=== PATIENT | female | born 1950 | race Caucasian/White ===

== ENCOUNTER 2019-01-21 19:43 | Emergency (ER) | payer OTHER ==
[~2019-01-21] VITALS: Ht 160 cm; Wt 73.9 kg
[~2019-01-21 19:43] MED LIST: BYSTOLIC PO; CYMBALTA PO; LISINOPRIL PO; PANTOPRAZOLE PO; ZETIA PO
--- OUTSIDE RECORDS SUMMARY | 2019-01-21 19:48 | XMS REPORT | Continuity of Care Document ---
Author Author [facility] Interface Address Unknown Phone Unavailable Problems Problem Status Onset Date Classification Date Reported Comments Source BREAST MASS Active 08/21/2014 [facility] SCREENING Active 07/30/2014 [facility] Elevated uric acid in blood Active Problem 12/19/2018 [facility] Elevated liver enzymes Active Problem 12/19/2018 [facility] Vitamin D deficiency Active Problem 12/19/2018 [facility] Insomnia, unspecified type Active Problem 12/19/2018 [facility] History of anemia Active Problem 10/24/2018 [facility] Osteopenia, unspecified location Active Problem 12/19/2018 [facility] Environmental allergies Active Problem 12/19/2018 [facility] HTN Active Problem 10/24/2018 [facility] Fatty liver Active Problem 12/19/2018 [facility] Renal cyst, right Active Problem 12/19/2018 [facility] Depressed Active Problem 12/19/2018 [facility] Prediabetes Active Problem 12/19/2018 [facility] Hypercholesteremia Active Problem 12/19/2018 [facility] Heartburn Active Problem 12/19/2018 [facility] Pain in right leg Active Diagnosis 08/16/2017 [facility] Pain of left leg Active Diagnosis 08/16/2017 [facility] Sciatica, left side Active Problem 12/19/2018 [facility] Hypertension Active Problem 12/19/2018 [facility] Screening for breast cancer Active Diagnosis 08/16/2017 [facility] Encntr for general adult medical exam w/o abnormal findings Active Diagnosis 08/16/2017 [facility] Screening for HIV Active Diagnosis 08/16/2017 [facility] Screening for osteoporosis Active Diagnosis 08/16/2017 [facility] Left leg pain Active Diagnosis 05/04/2017 [facility] Breast cancer screening Active Diagnosis 05/04/2017 [facility] Elevated serum creatinine Active Diagnosis 05/04/2017 [facility] Osteopenia Active Problem 02/24/2017 [facility] Stage 3 chronic kidney disease Active Problem 12/19/2018 [facility] Abnormal laboratory test result Active Problem 10/24/2018 [facility] Essential hypertension Active Problem 10/24/2018 [facility] Hematuria, unspecified type Active Diagnosis 09/13/2017 [facility] Type 2 diabetes mellitus without complication, without long-term current use of insulin Active Problem 12/19/2018 [facility] 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 Active Problem 12/19/2018 [facility] Abnormal gamma globulin level Active Diagnosis 10/07/2018 [facility] Routine general medical examination at a health care facility Active Diagnosis 10/07/2018 [facility] Encounter for screening mammogram for breast cancer Active Diagnosis 10/07/2018 [facility] Encounter for screening colonoscopy Active Diagnosis 10/07/2018 [facility] Elevated alkaline phosphatase level Active Diagnosis 01/19/2015 [facility] Overweight Active Problem 08/31/2015 [facility] Body Mass Index 27.0-27.9, adult Active Problem 08/31/2015 [facility] Hyperlipidemia Active Problem 08/31/2015 [facility] Vitamin d deficiency Active Problem 08/31/2015 [facility] Depression Active Problem 08/25/2016 [facility] Prediabetes Active Problem 08/31/2015 [facility] Essential hypertension Active Problem 08/31/2015 [facility] Flu vaccine need Active Diagnosis 07/22/2014 [facility] Constipation Active Diagnosis 07/22/2014 [facility] Acute left ankle pain Active Diagnosis 11/23/2018 [facility] Sleep disturbance Active Diagnosis 04/02/2014 [facility] Acute dermatitis Active Diagnosis 04/02/2014 [facility] Pre-op exam Active Diagnosis 09/21/2015 [facility] Hallux valgus of right foot Active Diagnosis 09/21/2015 [facility] Right ankle instability Active Diagnosis 09/21/2015 [facility] Capsulitis of ankle, right Active Diagnosis 09/21/2015 [facility] Needs flu shot Active Diagnosis 08/18/2016 [facility] Pre-operative clearance Active Diagnosis 08/18/2016 [facility] Right foot pain Active Diagnosis 08/18/2016 [facility] History of bunionectomy of right great toe Active Diagnosis 08/18/2016 [facility] Shingles Active Diagnosis 03/25/2016 [facility] Low back pain Active Diagnosis 03/25/2016 [facility] Sciatica Active Diagnosis 03/09/2016 [facility] Need for hepatitis C screening test Active Diagnosis 11/23/2016 [facility] Medications Medication Details Route Status Patient Instructions Ordering Provider Order Date Source MetFORMIN HCl ER 1 tablet with evening meal Orally Active 500 mg Orally Once a day Dennard 11/19/2018 [facility] Zetia 1 tablet Orally Active 10 mg Orally Once a day Dennard 11/19/2018 [facility] Zpfbknckhr-Jwdrfqbwy-CUNN 1 tablet Orally Active 5-160-12.5 MG Orally Once a day Dennard 10/03/2018 [facility] Cymbalta 1 capsule Orally Active 60 MG Orally daily [place]enn[place] 07/23/2018 [facility] Amlodipine Besylate 1 tablet Orally Active 5 MG Orally daily [place] 07/21/2018 [facility] Bystolic 1 tablet Orally Active 20 mg Orally daily D[place] 07/21/2018 [facility] Trazodone HCl 1-2 tablet Orally Active 50 mg Orally qhs PRN Dennard 07/21/2018 [facility] Latisse 1 drop each eye Externally Active 0.03 % Externally Once a day [place] 05/02/2017 [facility] Latisse 1 drop each eye Externally Active 0.03 % Externally Once a day [place] 05/02/2017 [facility] Valsartan-Hydrochlorothiazide 1/2-1 tablet Orally Active 320- 25 MG Orally Once a day [place] 04/02/2017 [facility] Amlodipine Besylate 1 tablet Orally Active 5 MG Orally Once a day [place] 04/02/2017 [facility] Amlodipine Besylate 1 tablet Orally Active 5 MG Orally Once a day [place] 04/02/2017 [facility] Valsartan-Hydrochlorothiazide 1 tablet Orally Active 320-25 MG Orally Once a day [place]enn[place] 04/02/2017 [facility] Ergocalciferol 1 capsule Orally Active 56813 UNIT Orally once per week Dennard 03/09/2017 [facility] Ergocalciferol 1 capsule Orally Active 26231 UNIT Orally once per week [place]enn[place] 03/09/2017 [facility] Trazodone HCl 1-2 tablet Orally Active 50 mg Orally q hs PRN Dennard 02/28/2017 [facility] Trazodone HCl 1 tablet at bedtime as needed Orally Active 50 MG Orally Once a day [place] 02/28/2017 [facility] Singulair 1 tablet Orally Active 10 MG Orally Once a day [place] 11/21/2016 [facility] Cyclobenzaprine HCl 1 tablet Orally Active 10 mg Orally one at hour of sleep daily [place] 04/13/2016 [facility] Naproxen 1 tablet Orally Active 375 MG Orally Twice a day [place] 04/13/2016 [facility] Pantoprazole Sodium 1 tablet Orally Active 20 mg Orally Once a day [place] 04/03/2016 [facility] Pantoprazole Sodium 1 tablet Orally Active 20 MG Orally Once a day [place] 04/03/2016 [facility] Bystolic 1 tablet Orally Active 20 mg Orally Once a day [place] 03/23/2016 [facility] Bystolic 1 tablet Orally Active 20 mg Orally Once a day [place]di[place] 03/23/2016 [facility] Medrol (Rishabh) as directed Orally Active 4 mg Orally daily [place] 03/21/2016 [facility] Bystolic 1 tablet Orally No Longer Active 10 MG Orally Once a day [place] 03/07/2016 [facility] Valtrex 1 tablet Orally Active 1 GM Orally every 8 hours [place] 03/07/2016 [facility] Lisinopril 1 tablet Orally Active 10 mg Orally Once a day (MUST SEE DOCTOR BEFORE NEXT REFILL) [place] 07/23/2015 [facility] Zetia 1 tablet Orally Active 10 mg Orally Once a day [place] 07/23/2015 [facility] Pantoprazole Sodium 1 tablet Orally Active 40 mg Orally Once a day [place] 07/20/2015 [facility] Bystolic 1 tablet Orally Active 5 MG Orally Once a day (MUST SEE DOCTOR BEFORE NEXT REFILL) [place] 07/20/2015 [facility] Latisse 1 drop to upper eyelid margin (do not apply to lower lid) Externally Active 0.03 % Externally every night [place] 03/30/2014 [facility] Cymbalta 1 capsule Orally Active 60 MG Orally Once a day [place] 01/29/2014 [facility] Tessalon Perles 1 capsule as needed Orally No Longer Active 100 mg Orally Three times a day [place] 01/16/2013 [facility] Montelukast Sodium 1 TABLET DAILY ORAL 30 DAYS NA Active 10 mg [place] [facility] Cymbalta 1 capsule Orally Active 60 MG Orally Once a day [place] [facility] Bystolic 1 tablet Orally Active 20 MG Orally Once a day [place] [facility] Zetia 1 tablet Orally Active 10 Orally Once a day [place] [facility] Bystolic 1 tablet Orally Active 20 MG Orally Once a day [place] [facility] Montelukast Sodium TK 1 T PO ONCE QD Oral Active 10 MG Oral [place] [facility] Pantoprazole Sodium 1 tablet Orally Active 20 mg Orally once a day [place] [facility] Zetia 1 tablet Orally Active 10 mg Orally Once a day [place] [facility] Pantoprazole Sodium TAKE 1 TABLET BY MOUTH ONCE A DAY Orally Active 20 MG Orally daily [place] [facility] Amlodipine Besylate 1 tablet Orally Active 5 Orally qd LAST REFILL, NEEDS TO BE SEEN [place] [facility] Pantoprazole Sodium 1 tablet Orally Active 20 mg Orally Once a day [place] [facility] Ergocalciferol 1 capsule Orally Active 04660 UNIT Orally once per week [place] [facility] Bystolic 1 tablet Orally Active 20 Orally qd LAST REFILL, NEEDS TO BE SEEN [place] [facility] Tizanidine HCl TK 1 T PO TID Oral Active 2 MG Oral [place] [facility] Multi For Her 50+ Unknown Orally No Longer Active Orally [place] [facility] Biotin 1 tablet Orally Active 300 MCG Orally Once a day [place] [facility] Hydrochlorothiazide 1 tablet by mouth Active 12.5 MG by mouth daily [place] [facility] Cymbalta take one capsule by mouth every day NA Active 60 MG [place] [facility] Pantoprazole Sodium 1 tablet Orally Active 40 Orally Once a day [place] [facility] Bystolic 1 tablet Orally Active 10 MG Orally Once a day [place] [facility] Lisinopril 1 tablet Orally Active 10 mg Orally Once a day [place] [facility] Bystolic 1 tablet Orally No Longer Active 5 MG Orally Once a day (MUST SEE DOCTOR BEFORE NEXT REFILL) Tirso [place] [facility] Lisinopril 1 tablet Orally Active 10 mg Orally Once a day (MUST SEE DOCTOR BEFORE NEXT REFILL) [place] [facility] Lisinopril 1 tablet Orally Active 10 mg Orally Once a day [place] [facility] Allergies, Adverse Reactions, Alerts Substance Category Reaction Severity Reaction type Status Date Reported Comments Source N.K.D.A. Adverse Reaction Info Not Available Adverse Reaction Active 11/19/2018 [facility] Immunizations Immunization Date Given Site Status Last Updated Comments Source FLUZONE HD 65 [place] [id number] 08/15/2016 completed [facility] FLU 3YRS & [place] [address] 07/21/2014 completed [facility] Results Order Name Results Value Reference Range Date Interpretation Comments Source Breast US Breast US - BREAST US ULTRASOUND OF BOTH BREASTS AND BOTH AXILLA: 09/14/2014 CLINICAL: Densities. Comparison is made to exam dated: 08/04/2014 mammogram - [facility]. Color flow and real-time ultrasound of both breasts and both axilla were performed. Velazco scale images of the real-time examination were reviewed. There is a benign 5 mm simple cyst in the right breast at 1 o'clock middle depth 1 cm from the nipple. This correlates with mammography findings. There is a benign 0.4 cm simple cyst in the left breast at 11 o'clock middle depth 2 cm from the nipple. This correlates with mammography findings. No abnormalities were seen sonographically in either breast or either axilla. IMPRESSION: BENIGN There is no sonographic evidence of malignancy. The 5 mm simple cyst in the right breast at 1 o'clock middle depth is benign. The 0.4 cm simple cyst in the left breast at 11 o'clock middle depth is benign. A screening mammogram in one year is recommended. Rona Jacob M.D. ap/penrad:09/14/2014 10:20:28 Cardiology Teacher: Roderick Mckenna, [facility] This exam was dictated and interpreted by [id number] for [facility]. letter sent: Normal exam Ultrasound BI-RADS: 2 Benign 09/14/2014 - - Read by: Rona Jacob MD Dictated Date/time: 09/14/14 10:20 Electronically Signed by: Rona Jacob MD 09/14/14 10:20 FINAL REPORT [facility] Digital Mammo Screening Mele[facility] MA Digital Mammo Screening [facility]le[facility]io MA - DIGITAL MAMMO SCREENING MELECIO MA BILATERAL DIGITAL SCREENING MAMMOGRAM WITH CAD: 08/04/2014 CLINICAL: Routine. Current study was evaluated with a Computer Aided Detection (CAD) system. Comparison is made with mammogram(s) dated 02/07/08, 09/11/06. There are scattered fibroglandular densities in both breasts. Multiple benign appearing masses/densities are noted bilaterally possibly representing cysts. There is a benign calcification in the right breast. There also are benign calcifications in the left breast. No significant masses, calcifications, or other findings are seen in either breast. IMPRESSION: BENIGN Multiple bilateral benign appearing masses/densities are present possibly representing cysts. Ultrasound can be performed for confirmation and to exclude underlying pathology. There is no mammographic evidence of malignancy. A screening mammogram in one year is recommended. Trevor lucas/penrad:08/17/2014 13:21:18 Cardiology Teacher: Ashley James, [facility] This exam was dictated and interpreted by [id number] for [facility]. letter sent: Bilateral Benign Mammogram BI-RADS: 2 Benign 08/04/2014 - - Read by: Trevor French MD Dictated Date/time: 08/17/14 13:21 Electronically Signed by: Trevor French MD 08/17/14 13:21 FINAL REPORT [facility] Vital Signs Vital Sign Value Date Comments Source Weight 156 11/19/2018 [facility] Height 62.5 11/19/2018 [facility] Heart Rate 68 11/19/2018 [facility] Diastolic (mm Hg) 60 11/19/2018 [facility] Systolic (mm Hg) 112 11/19/2018 [facility] Weight 158 10/03/2018 [facility] Height 62.5 10/03/2018 [facility] Heart Rate 58 10/03/2018 [facility] Diastolic (mm Hg) 68 10/03/2018 [facility] Systolic (mm Hg) 138 10/03/2018 [facility] Weight 156 08/13/2017 [facility] Height 62.5 08/13/2017 [facility] Heart Rate 72 08/13/2017 [facility] Diastolic (mm Hg) 60 08/13/2017 [facility] Systolic (mm Hg) 112 08/13/2017 [facility] Weight 157 05/02/2017 [facility] Height 62.5 05/02/2017 [facility] Heart Rate 62 05/02/2017 [facility] Diastolic (mm Hg) 62 05/02/2017 [facility] Systolic (mm Hg) 104 05/02/2017 [facility] Weight 158 11/21/2016 [facility] Height 62.5 11/21/2016 [facility] Diastolic (mm Hg) 86 11/21/2016 [facility] Systolic (mm Hg) 140 11/21/2016 [facility] Weight 163 08/15/2016 [facility] Height 62.5 08/15/2016 [facility] Heart Rate 64 08/15/2016 [facility] Diastolic (mm Hg) 85 08/15/2016 [facility] Systolic (mm Hg) 130 08/15/2016 [facility] Weight 164 03/23/2016 [facility] Height 62.5 03/23/2016 [facility] Heart Rate 65 03/23/2016 [facility] Diastolic (mm Hg) 90 03/23/2016 [facility] Systolic (mm Hg) 168 03/23/2016 [facility] Weight 161 03/07/2016 [facility] Height 62.5 03/07/2016 [facility] Heart Rate 75 03/07/2016 [facility] Diastolic (mm Hg) 102 03/07/2016 [facility] Systolic (mm Hg) 185 03/07/2016 [facility] Weight 162 09/14/2015 [facility] Height 62.5 09/14/2015 [facility] Heart Rate 71 09/14/2015 [facility] Diastolic (mm Hg) 78 09/14/2015 [facility] Systolic (mm Hg) 122 09/14/2015 [facility] Weight 162 08/18/2015 [facility] Height 62.5 08/18/2015 [facility] Heart Rate 94 08/18/2015 [facility] Diastolic (mm Hg) 84 08/18/2015 [facility] Systolic (mm Hg) 142 08/18/2015 [facility] Weight 146 07/21/2014 [facility] Height 62.5 07/21/2014 [facility] Heart Rate 68 07/21/2014 [facility] Diastolic (mm Hg) 78 07/21/2014 [facility] Systolic (mm Hg) 112 07/21/2014 [facility] Weight 141 03/30/2014 [facility] Height 62.5 03/30/2014 [facility] Temperature Oral (F) 97.9 F 03/30/2014 [facility] Heart Rate 84 03/30/2014 [facility] Diastolic (mm Hg) 72 03/30/2014 [facility] Systolic (mm Hg) 122 03/30/2014 [facility] Encounters Location Location Details Encounter Type Encounter Number Reason For Visit Attending Provider ADM Date DC Date Status Source [facility] med refill [id number] 03/30/2014 03/30/2014 [facility] med refill [id number] 03/30/2014 03/30/2014 [facility] med refill [id number] 03/30/2014 03/30/2014 [facility] med refill [id number] 03/30/2014 03/30/2014 [facility] med refill [id number] 03/30/2014 03/30/2014 [facility] med refill [id number] 03/30/2014 03/30/2014 [facility] med refill [id number] 03/30/2014 03/30/2014 [facility] med refill [id number] 03/30/2014 03/30/2014 [facility] med refill [id number] 03/30/2014 03/30/2014 [facility] med refill [id number] 03/30/2014 03/30/2014 [facility] med refill [id number] 03/30/2014 03/30/2014 [facility] med refill [id number] 03/30/2014 03/30/2014 [facility] med refill [id number] 03/30/2014 03/30/2014 [facility] med refill [id number] 03/30/2014 03/30/2014 [facility] med refill [id number] 03/30/2014 03/30/2014 [facility] med refill [id number] 03/30/2014 03/30/2014 [facility] med refill [id number] 03/30/2014 03/30/2014 [facility] med refill [id number] 03/30/2014 03/30/2014 [facility] STOMACH [id number] 07/21/2014 07/21/2014 [facility] STOMACH [id number] 07/21/2014 07/21/2014 [facility] STOMACH [id number] 07/21/2014 07/21/2014 [facility] STOMACH [id number] 07/21/2014 07/21/2014 [facility] STOMACH [id number] 07/21/2014 07/21/2014 [facility] [facility] STOMACH [id number] 07/21/2014 07/21/2014 [facility] STOMACH [id number] 07/21/2014 07/21/2014 [facility] STOMACH [id number] 07/21/2014 07/21/2014 [facility] STOMACH [id number] 07/21/2014 07/21/2014 [facility] STOMACH [id number] 07/21/2014 07/21/2014 [facility] STOMACH [id number] 07/21/2014 07/21/2014 [facility] STOMACH [id number] 07/21/2014 07/21/2014 [facility] STOMACH [id number] 07/21/2014 07/21/2014 [facility] STOMACH [id number] 07/21/2014 07/21/2014 [facility] STOMACH [id number] 07/21/2014 07/21/2014 [facility] STOMACH [id number] 07/21/2014 07/21/2014 [facility] STOMACH [id number] 07/21/2014 07/21/2014 [facility] Outpatient [id number] [facility] 08/04/2014 08/05/2014 [facility] Outpatient [id number] [facility] 09/14/2014 09/15/2014 [facility] MEDICATION REFILL [id number] 01/12/2015 01/12/2015 [facility] MEDICATION REFILL [id number] 01/12/2015 01/12/2015 [facility] MEDICATION REFILL [id number] 01/12/2015 01/12/2015 [facility] MEDICATION REFILL [id number] 01/12/2015 01/12/2015 [facility] MEDICATION REFILL [id number] 01/12/2015 01/12/2015 [facility] MEDICATION REFILL [id number] 01/12/2015 01/12/2015 [facility] MEDICATION REFILL [id number] 01/12/2015 01/12/2015 [facility] MEDICATION REFILL [id number] 01/12/2015 01/12/2015 [facility] MEDICATION REFILL [id number] 01/12/2015 01/12/2015 [facility] MEDICATION REFILL [id number] 01/12/2015 01/12/2015 [facility] MEDICATION REFILL [id number] 01/12/2015 01/12/2015 [facility] MEDICATION REFILL [id number] 01/12/2015 01/12/2015 [facility] MEDICATION REFILL [id number] 01/12/2015 01/12/2015 [facility] MEDICATION REFILL [id number] 01/12/2015 01/12/2015 [facility] MEDICATION REFILL [id number] 01/12/2015 01/12/2015 [facility] MEDICATION REFILL [id number] 01/12/2015 01/12/2015 [facility] Labs [id number] 01/18/2015 01/18/2015 [facility] Labs [id number] 01/18/2015 01/18/2015 [facility] Labs [id number] 01/18/2015 01/18/2015 [facility] Labs [id number] 01/18/2015 01/18/2015 [facility] Labs [id number] 01/18/2015 01/18/2015 [facility] Labs [id number] 01/18/2015 01/18/2015 [facility] Labs [id number] 01/18/2015 01/18/2015 [facility] Labs [id number] 01/18/2015 01/18/2015 [facility] Labs [id number] 01/18/2015 01/18/2015 [facility] Labs [id number] 01/18/2015 01/18/2015 [facility] Labs [id number] 01/18/2015 01/18/2015 [facility] Labs [id number] 01/18/2015 01/18/2015 [facility] Labs [id number] 01/18/2015 01/18/2015 [facility] Labs [id number] 01/18/2015 01/18/2015 [facility] Labs [id number] 01/18/2015 01/18/2015 [facility] Labs [id number] 01/18/2015 01/18/2015 [facility] [id number] 01/20/2015 01/20/2015 [facility] [id number] 01/20/2015 01/20/2015 [facility] [id number] 01/20/2015 01/20/2015 [facility] [id number] 01/20/2015 01/20/2015 [facility] [id number] 01/20/2015 01/20/2015 [facility] [id number] 01/20/2015 01/20/2015 [facility] [id number] 01/20/2015 01/20/2015 [facility] [id number] 01/20/2015 01/20/2015 [facility] [id number] 01/20/2015 01/20/2015 [facility] [id number] 01/20/2015 01/20/2015 [facility] [id number] 01/20/2015 01/20/2015 [facility] [id number] 01/20/2015 01/20/2015 [facility] [id number] 01/20/2015 01/20/2015 [facility] [id number] 01/20/2015 01/20/2015 [facility] [id number] 01/20/2015 01/20/2015 [facility] [id number] 01/20/2015 01/20/2015 [facility] LAB RESULTS [id number] 02/04/2015 02/04/2015 [facility] LAB RESULTS [id number] 02/04/2015 02/04/2015 [facility] LAB RESULTS [id number] 02/04/2015 02/04/2015 [facility] LAB RESULTS [id number] 02/04/2015 02/04/2015 [facility] LAB RESULTS [id number] 02/04/2015 02/04/2015 [facility] LAB RESULTS [id number] 02/04/2015 02/04/2015 [facility] LAB RESULTS [id number] 02/04/2015 02/04/2015 [facility] LAB RESULTS [id number] 02/04/2015 02/04/2015 [facility] LAB RESULTS [id number] 02/04/2015 02/04/2015 [facility] LAB RESULTS [id number] 02/04/2015 02/04/2015 [facility] LAB RESULTS [id number] 02/04/2015 02/04/2015 [facility] LAB RESULTS [id number] 02/04/2015 02/04/2015 [facility] LAB RESULTS [id number] 02/04/2015 02/04/2015 [facility] LAB RESULTS [id number] 02/04/2015 02/04/2015 [facility] LAB RESULTS [id number] 02/04/2015 02/04/2015 [facility] physical [id number] 05/25/2015 05/25/2015 [facility] physical [id number] 05/25/2015 05/25/2015 [facility] physical [id number] 05/25/2015 05/25/2015 [facility] physical [id number] 05/25/2015 05/25/2015 [facility] physical [id number] 05/25/2015 05/25/2015 [facility] physical [id number] 05/25/2015 05/25/2015 [facility] physical [id number] 05/25/2015 05/25/2015 [facility] physical [id number] 05/25/2015 05/25/2015 [facility] physical [id number] 05/25/2015 05/25/2015 [facility] physical [id number] 05/25/2015 05/25/2015 [facility] physical [id number] 05/25/2015 05/25/2015 [facility] physical [id number] 05/25/2015 05/25/2015 [facility] physical [id number] 05/25/2015 05/25/2015 [facility] physical [id number] 05/25/2015 05/25/2015 [facility] physical [id number] 05/25/2015 05/25/2015 [facility] LEG PAIN/SWELLING [id number] 07/20/2015 07/20/2015 [facility] LEG PAIN/SWELLING [id number] 07/20/2015 07/20/2015 [facility] LEG PAIN/SWELLING [id number] 07/20/2015 07/20/2015 [facility] LEG PAIN/SWELLING [id number] 07/20/2015 07/20/2015 [facility] LEG PAIN/SWELLING [id number] 07/20/2015 07/20/2015 [facility] LEG PAIN/SWELLING [id number] 07/20/2015 07/20/2015 [facility] LEG PAIN/SWELLING [id number] 07/20/2015 07/20/2015 [facility] LEG PAIN/SWELLING [id number] 07/20/2015 07/20/2015 [facility] LEG PAIN/SWELLING [id number] 07/20/2015 07/20/2015 [facility] LEG PAIN/SWELLING [id number] 07/20/2015 07/20/2015 [facility] LEG PAIN/SWELLING [id number] 07/20/2015 07/20/2015 [facility] LEG PAIN/SWELLING [id number] 07/20/2015 07/20/2015 [facility] LEG PAIN/SWELLING [id number] 07/20/2015 07/20/2015 [facility] LEG PAIN/SWELLING [id number] 07/20/2015 07/20/2015 [facility] LEG PAIN/SWELLING [id number] 07/20/2015 07/20/2015 [facility] 3 DAY FOLLOW UP [id number] 07/23/2015 07/23/2015 [facility] 3 DAY FOLLOW UP [id number] 07/23/2015 07/23/2015 [facility] 3 DAY FOLLOW UP [id number] 07/23/2015 07/23/2015 [facility] 3 DAY FOLLOW UP [id number] 07/23/2015 07/23/2015 [facility] 3 DAY FOLLOW UP [id number] 07/23/2015 07/23/2015 [facility] 3 DAY FOLLOW UP [id number] 07/23/2015 07/23/2015 [facility] 3 DAY FOLLOW UP [id number] 07/23/2015 07/23/2015 [facility] 3 DAY FOLLOW UP [id number] 07/23/2015 07/23/2015 [facility] 3 DAY FOLLOW UP [id number] 07/23/2015 07/23/2015 [facility] 3 DAY FOLLOW UP [id number] 07/23/2015 07/23/2015 [facility] 3 DAY FOLLOW UP [id number] 07/23/2015 07/23/2015 [facility] 3 DAY FOLLOW UP [id number] 07/23/2015 07/23/2015 [facility] 3 DAY FOLLOW UP [id number] 07/23/2015 07/23/2015 [facility] 3 DAY FOLLOW UP [id number] 07/23/2015 07/23/2015 [facility] 3 DAY FOLLOW UP [id number] 07/23/2015 07/23/2015 [facility] ROQUE [id number] 08/03/2015 08/03/2015 [facility] ROQUE [id number] 08/03/2015 08/03/2015 [facility] ROQUE [id number] 08/03/2015 08/03/2015 [facility] ROQEU [id number] 08/03/2015 08/03/2015 [facility] ROQUE [id number] 08/03/2015 08/03/2015 [facility] ROQUE [id number] 08/03/2015 08/03/2015 [facility] ROQUE [id number] 08/03/2015 08/03/2015 [facility] SOLANGE-ROYAL [id number] 08/03/2015 08/03/2015 [facility] ROQUE [id number] 08/03/2015 08/03/2015 [facility] SOLANGE-ROYAL [id number] 08/03/2015 08/03/2015 [facility] [id number] 08/03/2015 08/03/2015 [facility] echo,carotid and venous doppler [id number] 08/03/2015 08/03/2015 [facility] echo,carotid and venous doppler [id number] 08/03/2015 08/03/2015 [facility] echo,carotid and venous doppler [id number] 08/03/2015 08/03/2015 [facility] [facility] echo,carotid and venous doppler [id number] 08/03/2015 08/03/2015 [facility] echo,carotid and venous doppler [id number] 08/03/2015 08/03/2015 [facility] echo,carotid and venous doppler [id number] 08/03/2015 08/03/2015 [facility] echo,carotid and venous doppler [id number] 08/03/2015 08/03/2015 [facility] echo,carotid and venous doppler [id number] 08/03/2015 08/03/2015 [facility] echo,carotid and venous doppler [id number] 08/03/2015 08/03/2015 [facility] echo,carotid and venous doppler [id number] 08/03/2015 08/03/2015 [facility] echo,carotid and venous doppler [id number] 08/03/2015 08/03/2015 [facility] ECHO-ROYAL [id number] 08/03/2015 08/03/2015 [facility] ECHO-ROYAL [id number] 08/03/2015 08/03/2015 [facility] ECHO-ROYAL [id number] 08/03/2015 08/03/2015 [facility] ECHO-ROYAL [id number] 08/03/2015 08/03/2015 [facility] echo,carotid and venous doppler [id number] 08/03/2015 08/03/2015 [facility] echo,carotid and venous doppler [id number] 08/03/2015 08/03/2015 [facility] echo,carotid and venous doppler [id number] 08/03/2015 08/03/2015 [facility] echo,carotid and venous doppler [id number] 08/03/2015 08/03/2015 [facility] RACHELEROYAL [id number] 08/11/2015 08/11/2015 [facility] MERON-ROYAL [id number] 08/11/2015 08/11/2015 [facility] MERON-ROYAL [id number] 08/11/2015 08/11/2015 [facility] MERON-ROYAL [id number] 08/11/2015 08/11/2015 [facility] MERON-ROYAL [id number] 08/11/2015 08/11/2015 [facility] MERON-ROYAL [id number] 08/11/2015 08/11/2015 [facility] MERON-ROYAL [id number] 08/11/2015 08/11/2015 [facility] MERON-ROYAL [id number] 08/11/2015 08/11/2015 [facility] MERON-ROYAL [id number] 08/11/2015 08/11/2015 [facility] NIGEL [id number] 08/11/2015 08/11/2015 [facility] NIGEL [id number] 08/11/2015 08/11/2015 [facility] NIGEL [id number] 08/11/2015 08/11/2015 [facility] MERON-ROYAL [id number] 08/11/2015 08/11/2015 [facility] MERON-ROYAL [id number] 08/11/2015 08/11/2015 [facility] MERON-ROYAL [id number] 08/11/2015 08/11/2015 [facility] Referral [id number] 08/13/2015 08/13/2015 [facility] Referral [id number] 08/13/2015 08/13/2015 [facility] Referral [id number] 08/13/2015 08/13/2015 [facility] Referral [id number] 08/13/2015 08/13/2015 [facility] Referral [id number] 08/13/2015 08/13/2015 [facility] Referral [id number] 08/13/2015 08/13/2015 [facility] Referral [id number] 08/13/2015 08/13/2015 [facility] Referral [id number] 08/13/2015 08/13/2015 [facility] Referral [id number] 08/13/2015 08/13/2015 [facility] Referral [id number] 08/13/2015 08/13/2015 [facility] Referral [id number] 08/13/2015 08/13/2015 [facility] Referral [id number] 08/13/2015 08/13/2015 [facility] Referral [id number] 08/13/2015 08/13/2015 [facility] Referral [id number] 08/13/2015 08/13/2015 [facility] Referral [id number] 08/13/2015 08/13/2015 [facility] TMT-ROYAL [id number] 08/18/2015 08/18/2015 [facility] TMT-ROYAL [id number] 08/18/2015 08/18/2015 [facility] TMT-ROYAL [id number] 08/18/2015 08/18/2015 [facility] TMT-ROYAL [id number] 08/18/2015 08/18/2015 [facility] TMT-ROYAL [id number] 08/18/2015 08/18/2015 [facility] TMT-ROYAL [id number] 08/18/2015 08/18/2015 [facility] TMT-ROYAL [id number] 08/18/2015 08/18/2015 [facility] TMT-ROYAL [id number] 08/18/2015 08/18/2015 [facility] TMT-ROYAL [id number] 08/18/2015 08/18/2015 [facility] TMT-ROYAL [id number] 08/18/2015 08/18/2015 [facility] TMT-ROYAL [id number] 08/18/2015 08/18/2015 [facility] TMT-ROYAL [id number] 08/18/2015 08/18/2015 [facility] TMT-ROYAL [id number] 08/18/2015 08/18/2015 [facility] TMT-ROYAL [id number] 08/18/2015 08/18/2015 [facility] TMT-ROYAL [id number] 08/18/2015 08/18/2015 [facility] Unknown [id number] 08/30/2015 08/30/2015 [facility] Unknown [id number] 08/30/2015 08/30/2015 [facility] Unknown [id number] 08/30/2015 08/30/2015 [facility] Unknown [id number] 08/30/2015 08/30/2015 [facility] Unknown [id number] 08/30/2015 08/30/2015 [facility] Unknown [id number] 08/30/2015 08/30/2015 [facility] Unknown [id number] 08/30/2015 08/30/2015 [facility] Unknown [id number] 08/30/2015 08/30/2015 [facility] Unknown [id number] 08/30/2015 08/30/2015 [facility] Unknown [id number] 08/30/2015 08/30/2015 [facility] Unknown [id number] 08/30/2015 08/30/2015 [facility] Unknown [id number] 08/30/2015 08/30/2015 [facility] Unknown [id number] 08/30/2015 08/30/2015 [facility] PRE OP RIGHT FOOT [id number] 09/14/2015 09/14/2015 [facility] PRE OP RIGHT FOOT [id number] 09/14/2015 09/14/2015 [facility] PRE OP RIGHT FOOT [id number] 09/14/2015 09/14/2015 [facility] PRE OP RIGHT FOOT [id number] 09/14/2015 09/14/2015 [facility] PRE OP RIGHT FOOT [id number] 09/14/2015 09/14/2015 [facility] PRE OP RIGHT FOOT [id number] 09/14/2015 09/14/2015 [facility] PRE OP RIGHT FOOT [id number] 09/14/2015 09/14/2015 [facility] PRE OP RIGHT FOOT [id number] 09/14/2015 09/14/2015 [facility] PRE OP RIGHT FOOT [id number] 09/14/2015 09/14/2015 [facility] PRE OP RIGHT FOOT [id number] 09/14/2015 09/14/2015 [facility] PRE OP RIGHT FOOT [id number] 09/14/2015 09/14/2015 [facility] PRE OP RIGHT FOOT [id number] 09/14/2015 09/14/2015 [facility] RF [id number] 01/17/2016 01/17/2016 [facility] RF [id number] 01/17/2016 01/17/2016 [facility] RF [id number] 01/17/2016 01/17/2016 [facility] RF [id number] 01/17/2016 01/17/2016 [facility] RF [id number] 01/17/2016 01/17/2016 [facility] RF [id number] 01/17/2016 01/17/2016 [facility] RF [id number] 01/17/2016 01/17/2016 [facility] RF [id number] 01/17/2016 01/17/2016 [facility] RF [id number] 01/17/2016 01/17/2016 [facility] RF [id number] 01/17/2016 01/17/2016 [facility] RF [id number] 01/17/2016 01/17/2016 [facility] RF [id number] 01/24/2016 01/24/2016 [facility] RF [id number] 01/24/2016 01/24/2016 [facility] RF [id number] 01/24/2016 01/24/2016 [facility] RF [id number] 01/24/2016 01/24/2016 [facility] RF [id number] 01/24/2016 01/24/2016 [facility] RF [id number] 01/24/2016 01/24/2016 [facility] RF [id number] 01/24/2016 01/24/2016 [facility] RF [id number] 01/24/2016 01/24/2016 [facility] RF [id number] 01/24/2016 01/24/2016 [facility] RF [id number] 01/24/2016 01/24/2016 [facility] Refill [id number] 01/26/2016 01/26/2016 [facility] Refill [id number] 01/26/2016 01/26/2016 [facility] Refill [id number] 01/26/2016 01/26/2016 [facility] Refill [id number] 01/26/2016 01/26/2016 [facility] Refill [id number] 01/26/2016 01/26/2016 [facility] Refill [id number] 01/26/2016 01/26/2016 [facility] Refill [id number] 01/26/2016 01/26/2016 [facility] Refill [id number] 01/26/2016 01/26/2016 [facility] Refill [id number] 01/26/2016 01/26/2016 [facility] Back pain [id number] 03/07/2016 03/07/2016 [facility] Back pain [id number] 03/07/2016 03/07/2016 [facility] Back pain [id number] 03/07/2016 03/07/2016 [facility] Back pain [id number] 03/07/2016 03/07/2016 [facility] Back pain [id number] 03/07/2016 03/07/2016 [facility] Back pain [id number] 03/07/2016 03/07/2016 [facility] Back pain [id number] 03/07/2016 03/07/2016 [facility] Back pain [id number] 03/07/2016 03/07/2016 [facility] Medication [id number] 03/16/2016 03/16/2016 [facility] Medication [id number] 03/16/2016 03/16/2016 [facility] Medication [id number] 03/16/2016 03/16/2016 [facility] Medication [id number] 03/16/2016 03/16/2016 [facility] Medication [id number] 03/16/2016 03/16/2016 [facility] Medication [id number] 03/16/2016 03/16/2016 [facility] Medication [id number] 03/16/2016 03/16/2016 [facility] pain in lower back [id number] 03/23/2016 03/23/2016 [facility] pain in lower back [id number] 03/23/2016 03/23/2016 [facility] pain in lower back [id number] 03/23/2016 03/23/2016 [facility] pain in lower back [id number] 03/23/2016 03/23/2016 [facility] pain in lower back [id number] 03/23/2016 03/23/2016 [facility] pain in lower back [id number] 03/23/2016 03/23/2016 [facility] Test results [id number] 04/13/2016 04/13/2016 [facility] Test results [id number] 04/13/2016 04/13/2016 [facility] [facility] Test results [id number] 04/13/2016 04/13/2016 [facility] Test results [id number] 04/13/2016 04/13/2016 [facility] Test results [id number] 04/13/2016 04/13/2016 [facility] FOLLOW UP ON FOOT [id number] 08/15/2016 08/15/2016 [facility] FOLLOW UP ON FOOT [id number] 08/15/2016 08/15/2016 [facility] FOLLOW UP ON FOOT [id number] 08/15/2016 08/15/2016 [facility] FOLLOW UP ON FOOT [id number] 08/15/2016 08/15/2016 [facility] Unknown [id number] 08/17/2016 08/17/2016 [facility] Unknown [id number] 08/17/2016 08/17/2016 [facility] Unknown [id number] 08/17/2016 08/17/2016 [facility] Refill [id number] 08/24/2016 08/24/2016 [facility] Refill [id number] 08/24/2016 08/24/2016 [facility] MEDICATION REFILLS [id number] 11/21/2016 11/21/2016 [facility] Procedures Procedure Code Date Perfomer Comments Source
--- OUTSIDE RECORDS SUMMARY | 2019-01-21 19:49 | XMS REPORT ---
Author Author Jill Paz [facility] eClinicalWorks Address Unknown Phone Unavailable Care Team Providers Care Senior Mechanical Project Manager Name Role Phone Jill Paz Unavailable Allergies, Adverse Reactions, Alerts Substance Reaction Event Type N.K.D.A. Info Not Available Non Drug Allergy Encounters Encounter Location Date med refill [facility] March 30, 2014 Problems Problem Type Condition ICD-9 Code Onset Dates Condition Status Problem Vitamin d deficiency 268.9 Active Problem Depression 311 Active Problem Essential hypertension 401.9 Active Assessment Sleep disturbance 780.50 Active Assessment Acute dermatitis 692.9 Active Assessment Depression 311 Active Assessment Essential hypertension 401.9 Active Medications Medication Code System Code Instructions Start Date End Date Status Dosage Cymbalta MEDISPAN [address]-84 60 MG Orally Once a day NEEDS TO BE SEEN, LAST REFILL January 29, 2014 Active 1 capsule Tessalon Perles MEDISPAN [address]-15 100 mg Orally Three times a day January 16, 2013 Active 1 capsule as needed Latisse MEDISPAN [address]-61 0.03 % Externally every night March 30, 2014 May 29, 2014 Active 1 drop to upper eyelid margin (do not apply to lower lid) [facility] [address]-87 12.5 MG by mouth daily Active 1 tablet Social History Social History Element Qualifiers Date Reported Fall Risk: . 03/30/2014 March 30, 2014 Depression Screening: . 03/30/2014 March 30, 2014 Flu Vaccine: . 2012March 30, 2014 children . 3 March 30, 2014 Tobacco Use: . Are you a: never smoker March 30, 2014 Use of recreational / street drugs? . Answer: No March 30, 2014 Marital Status: . Seperated March 30, 2014 Do you drink alcohol? . 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, 2014 Family history Qualifier Description Comment Date Reported Mother hypertension March 30, 2014 Father hypertension March 30, 2014 Vital Signs Date/Time: March 30, 2014 Weight 141 lbs Height 62.5 in Temperature 97.9 F Cardiac Monitoring Heart Rate 84 /min Blood Pressure Diastolic 72 mm Hg Blood Pressure Systolic 122 mm Hg Results TSH TSH(-0.450-4.500 uIU/mL) 2.110 CBC With Differential/Platelet Basos(-0-3 %) 1 MCV(-79-97 fL) 87 Hematocrit(-34.0-46.6 %) 42.6 Eos(-0-5 %) 2 MCHC(-31.5-35.7 g/dL) 33.1 Monocytes(-4-12 %) 8 MCH(-26.6-33.0 pg) 28.7 Lymphs(-14-46 %) 32 Eos (Absolute)(-0.0-0.4 x10E3/uL) 0.1 WBC(-3.4-10.8 x10E3/uL) 5.1 Monocytes(Absolute)(-0.1-0.9 x10E3/uL) 0.4 Lymphs (Absolute)(-0.7-3.1 x10E3/uL) 1.6 Hemoglobin(-11.1-15.9 g/dL) 14.1 Neutrophils (Absolute)(-1.4-7.0 x10E3/uL) 2.9 RBC(-3.77-5.28 x10E6/uL) 4.91 Immature Grans (Abs)(-0.0-0.1 x10E3/uL) 0.0 Immature Granulocytes(-0-2 %) 0 Neutrophils(-40-74 %) 57 Baso (Absolute)(-0.0-0.2 x10E3/uL) 0.0 RDW(-12.3-15.4 %) 14.0 Platelets(-155-379 x10E3/uL) 254 Hemoglobin A1c Hemoglobin A1c(-4.8-5.6 %) 6.0 Urinalysis, Routine Glucose(-Negative ) Negative Protein(-Negative/Trace ) Negative Occult Blood(-Negative ) Negative Ketones(-Negative ) Negative Urobilinogen,Semi-Qn(-0.0-1.9 mg/dL) 0.2 Nitrite, Urine(-Negative ) Negative Bilirubin(-Negative ) Negative Appearance(-Clear ) Clear WBC Esterase(-Negative ) Negative pH(-5.0-7.5 ) 5.5 Microscopic Examination(- ) Comment Urine-Color(-Yellow ) Yellow Specific [place](-1.005-1.030 ) 1.020 Lipid Panel LDL Cholesterol Calc(-0-99 mg/dL) 133 VLDL Cholesterol Kin(-5-40 mg/dL) 14 HDL Cholesterol(->39 mg/dL) 78 Triglycerides(-0-149 mg/dL) 71 Cholesterol, Total(-100-199 mg/dL) 225 Comp. Metabolic Panel (14) Creatinine, Serum(-0.57-1.00 mg/dL) 0.84 BUN(-8-27 mg/dL) 15 eGFR If Africn Am(- >59 mL/min/1.73) 86 eGFR If NonAfricn Am(- >59 mL/min/1.73) 75 Sodium, Serum(-134-144 mmol/L) 141 BUN/Creatinine Ratio(-11-26 ) 18 Chloride, Serum(-97-108 mmol/L) 100 Potassium, Serum(-3.5-5.2 mmol/L) 4.3 Carbon Dioxide, Total(-19-28 mmol/L) 26 Protein, Total, Serum(-6.0-8.5 g/dL) 6.9 Calcium, Serum(-8.6-10.2 mg/dL) 9.9 Globulin, Total(-1.5-4.5 g/dL) 2.3 Albumin, Serum(-3.6-4.8 g/dL) 4.6 Bilirubin, Total(-0.0-1.2 mg/dL) 0.2 Glucose, Serum(-65-99 mg/dL) 85 A/G Ratio(-1.1-2.5 ) 2.0 ALT (SGPT)(-0-32 IU/L) 26 Alkaline Phosphatase, S(-39-117 IU/L) 130 AST (SGOT)(-0-40 IU/L) 33 Summary Purpose eClinicalWorks Submission
--- OUTSIDE RECORDS SUMMARY | 2019-01-21 19:49 | XMS REPORT ---
Author Author Hebert Toscano Organization eClinicalWorks Address Unknown Phone Unavailable Care Team Providers Care Dragline Operator Helper Name Role Phone Hebert Toscano CP Unavailable Allergies No Known Allergies Problems Problem Type Condition Code Onset Dates Condition Status Problem Elevated liver enzymes R74.8 Active Problem Renal cyst, right N28.1 Active Problem HTN (hypertension) I10 Active Problem Sciatica, left side M54.32 Active Problem Insomnia, unspecified type G47.00 Active Problem Hypertension I10 Active Problem Fatty liver K76.0 Active Problem Environmental allergies Z91.09 Active Problem Osteopenia, unspecified location M85.80 Active Problem History of anemia Z86.2 Active Assessment Heartburn R12 Active Problem Hypercholesteremia E78.0 Active Problem Elevated uric acid in blood E79.0 Active Problem Depressed F32.9 Active Problem Heartburn R12 Active Problem Prediabetes R73.09 Active Problem Vitamin D deficiency E55.9 Active Medications Medication Code System Code Instructions Start Date End Date Status Dosage Pantoprazole Sodium [facility] [place] 29049332[place] 20 mg Orally Once a day April 03, 2016 Active 1 tablet Results No Known Results Summary Purpose eClinicalWorks Submission
--- OUTSIDE RECORDS SUMMARY | 2019-01-21 19:49 | XMS REPORT ---
Author Author Emily Lepe [facility] eClinicalWorks Address Unknown Phone Unavailable Care Team Providers Care Steamship Agent Name Role Phone Emily Lepe Unavailable Encounters Encounter Location Date Labs [facility] January 18, 2015 [place] [facility] January 20, 2015 LAB RESULTS [facility] February 04, 2015 physical [facility] May 25, 2015 med refill [facility] March 30, 2014 STOMACH [facility] Jul 21, 2014 MEDICATION REFILL [facility] January 12, 2015 ECHO-ROYAL [place] Aug 03, 2015 LEG PAIN/SWELLING [facility] Jul 20, 2015 3 DAY FOLLOW UP [facility] Jul 23, 2015 Unknown [facility] Aug 30, 2015 Referral [facility] Aug 13, 2015 TMT-ROYAL [facility] Aug 18, 2015 echo,carotid and venous doppler [facility] Aug 03, 2015 ABD-ROYAL [facility] Aug 11, 2015 Problems Problem Type Condition ICD-9 Code Onset Dates Condition Status Problem Vitamin d deficiency 268.9 Active Problem Prediabetes 790.29 Active Problem Essential hypertension 401.9 Active Problem Depression 311 Active Problem Hypertension I10 Active Problem Prediabetes R73.09 Active Problem Hypercholesteremia E78.0 Active Problem Overweight 278.02 Active Problem Body Mass Index 27.0-27.9, adult V85.23 Active Problem Osteopenia 733.90 Active Problem Hyperlipidemia 272.4 Active Social History Social History Element Qualifiers Date Reported Fall Risk: . none in the past year Aug 18, 2015 Ethnicity . Status , Is albanian your primary language? Yes Aug 18, 2015 children . 3 Aug 18, 2015 Tobacco Use: . Are you a: never smoker Aug 18, 2015 Depression Screening: . negative Aug 18, 2015 Use of recreational / street drugs? . Answer: No Aug 18, 2015 Marital Status: . Seperated Aug 18, 2015 Caffeine intake? . Status: Yes, What type: Coffee, Tea, Soft Drinks Aug 18, 2015 Do you exercise? . Answer: Yes, Type: walking Aug 18, 2015 Do you drink alcohol? . 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
--- OUTSIDE RECORDS SUMMARY | 2019-01-21 19:49 | XMS REPORT ---
Author Author Hebert Toscano Organization eClinicalWorks Address Unknown Phone Unavailable Care Team Providers Care Ct Scan Technologist Name Role Phone Hebert Toscano CP Unavailable Allergies, Adverse Reactions, Alerts Substance Reaction Event Type N.K.D.A. Info Not Available Non Drug Allergy Encounters Encounter Location Date Labs [facility] January 18, 2015 [place] [facility] January 20, 2015 LAB RESULTS [facility] February 04, 2015 physical [facility] May 25, 2015 med refill [facility] March 30, 2014 STOMACH [facility] Jul 21, 2014 MEDICATION REFILL [facility] January 12, 2015 ECHO-ROYAL [facility] Aug 03, 2015 LEG PAIN/SWELLING [facility] Jul 20, 2015 3 DAY FOLLOW UP [facility] Jul 23, 2015 Unknown [facility] Aug 30, 2015 PRE OP RIGHT FOOT [facility] Sep 14, 2015 Referral [facility] Aug 13, 2015 TMT-ROYAL [facility] Aug 18, 2015 echo,carotid and venous doppler [facility] Aug 03, 2015 ABD-ROYAL [facility] Aug 11, 2015 Problems Problem Type Condition ICD-9 Code Onset Dates Condition Status Assessment Pre-op exam Z01.818 Active Problem Osteopenia 733.90 Active Problem Depression 311 Active Problem Vitamin D deficiency E55.9 Active Problem Elevated uric acid in blood E79.0 Active Problem Elevated liver enzymes R74.8 Active Problem Hypertension I10 Active Problem Prediabetes R73.09 Active Problem Heartburn R12 Active Problem Hypercholesteremia E78.0 Active Assessment Elevated uric acid in blood E79.0 Active Assessment Prediabetes R73.09 Active Assessment Heartburn R12 Active Assessment Hypercholesteremia E78.0 Active Assessment Hallux valgus of right foot M20.11 Active Assessment Vitamin D deficiency E55.9 Active Assessment Right ankle instability M25.371 Active Assessment Elevated liver enzymes R74.8 Active Assessment Capsulitis of ankle, right M77.51 Active Medications Medication Code System Code Instructions Start Date End Date Status Dosage Zetia [facility] [address]-36 10 mg Orally Once a day Jul 23, 2015 Active 1 tablet Bystolic [facility] [address]-99 5 MG Orally Once a day Jul 20, 2015 Active 1 tablet Cymbalta [facility] [address]-07 60 MG Active take one capsule by mouth every day Lisinopril [facility] [address]-44 10 mg Orally Once a day Jul 23, 2015 Active 1 tablet Pantoprazole Sodium [facility] 62266521562 40 Orally Once a day Active 1 tablet Social History Social History Element Qualifiers Date Reported Fall Risk: . none in the past year Sep 14, 2015 Ethnicity . Status , Is kiswahili your primary language? Yes Sep 14, 2015 children . 3 Sep 14, 2015 Tobacco Use: . Are you a: never smoker Sep 14, 2015 Depression Screening: . negative Sep 14, 2015 Use of recreational / street drugs? . Answer: No Sep 14, 2015 Marital Status: . Seperated Sep 14, 2015 Caffeine intake? . Status: Yes, What type: Coffee, Tea, Soft Drinks Sep 14, 2015 Do you exercise? . Answer: Yes, Type: walking Sep 14, 2015 Do you drink alcohol? . 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, 2015 Family history Qualifier Description Comment Date Reported Maternal Grandmother Comment not available Sep 14, 2015 Paternal Grandmother Comment not available Sep 14, 2015 Siblings 1 sister VANG, 1 sister cancer 2 brothers cancer Sep 14, 2015 Maternal Grandfather Comment not available Sep 14, 2015 Children Comment not available Sep 14, 2015 Father hypertension Sep 14, 2015 Paternal Grandfather Comment not available Sep 14, 2015 Mother hypertension Sep 14, 2015 Other: Comment not available Sep 14, 2015 Vital Signs Date/Time: Sep 14, 2015 Weight 162 lbs Height 62.5 in Cardiac Monitoring Heart Rate 71 /min Blood Pressure Diastolic 78 mm Hg Blood Pressure Systolic 122 mm Hg Summary Purpose eClinicalWorks Submission
--- OUTSIDE RECORDS SUMMARY | 2019-01-21 19:49 | XMS REPORT ---
Author Author Emily Pope [facility] eClinicalWorks Address Unknown Phone Unavailable Care Team Providers Care Grain Operator Name Role Phone Toshia Emily CP Unavailable Allergies, Adverse Reactions, Alerts Substance Reaction Event Type N.K.D.A. Info Not Available Non Drug Allergy Encounters Encounter Location Date med refill [facility] March 30, [address] [facility] Jul 21, 2014 Problems Problem Type Condition ICD-9 Code Onset Dates Condition Status Assessment Depression 311 Active Problem Essential hypertension 401.9 Active Problem Vitamin d deficiency 268.9 Active Problem Prediabetes 790.29 Active Assessment Flu vaccine need V04.81 Active Assessment Prediabetes 790.29 Active Problem Depression 311 Active Assessment Constipation 564.00 Active Medications Medication Code System Code Instructions Start Date End Date Status Dosage Cymbalta MEDISPAN [address]-82 60 MG Orally Once a day January 29, 2014 Active 1 capsule [facility] For Her 50+ [facility] [address] Orally Inactive Unknown Biotin MEDISPAN [address]-80 300 MCG Orally Once a day Active 1 tablet Tessalon Perles [facility] [address]-75 100 mg Orally Three times a day January 16, 2013 Inactive 1 capsule as needed Hydrochlorothiazide [facility] [address]-61 12.5 MG by mouth daily Active 1 tablet Social History Social History Element Qualifiers Date Reported Depression Screening: . 03/30/2014 Jul 21, 2014 Flu Vaccine: . 2012Jul 21, 2014 Ethnicity . Status , Is malaysian your primary language? Yes Jul 21, 2014 Fall Risk: . 03/30/2014 Jul 21, 2014 children . 3 Jul 21, 2014 Tobacco Use: . Are you a: never smoker Jul 21, 2014 Use of recreational / street drugs? . Answer: No Jul 21, 2014 Marital Status: . Seperated Jul 21, 2014 Do you drink alcohol? . Status: Yes, Type: Rarely Jul 21, 2014 Occupation: employed. [employer] Jul 21, 2014 Vital Signs Date/Time: Jul 21, 2014 Weight 146 lbs Height 62.5 in Cardiac Monitoring Heart Rate 68 /min Blood Pressure Diastolic 78 mm Hg Blood Pressure Systolic 112 mm Hg Immunizations Vaccine Administration Date FLU 3YRS & [place] [address] Jul 21, 2014 Summary Purpose eClinicalWorks Submission
--- OUTSIDE RECORDS SUMMARY | 2019-01-21 19:49 | XMS REPORT ---
Author Author Royal Paz eClinicalWorks Address Unknown Phone Unavailable Care Team Providers Care Director Digital Marketing Name Role Phone Royal Paz CP Unavailable Encounters Encounter Location Date Labs [facility] January 18, 2015 [place] [facility] January 20, 2015 LAB RESULTS [facility] February 04, 2015 physical [facility] May 25, 2015 med refill [facility] March 30, 2014 STOMACH [facility] Jul 21, 2014 MEDICATION REFILL [facility] January 12, 2015 ECHO-ROYAL [facility] Aug 03, 2015 LEG PAIN/SWELLING [facility] Jul 20, 2015 3 DAY FOLLOW UP [facility] Jul 23, 2015 Referral [facility] Aug 13, 2015 TMT-ROYAL [facility] Aug 18, 2015 echo,carotid and venous doppler [facility] Aug 03, 2015 ABD-ROYAL [facility] Aug [...] Risk: . none in the past year Jul 23, 2015 Ethnicity . Status , Is kazakh your primary language? Yes Jul 23, 2015 children . 3 Jul 23, 2015 Tobacco Use: . Are you a: never smoker Jul 23, 2015 Depression Screening: . negative Jul 23, 2015 Use of recreational / street drugs? . Answer: No Jul 23, 2015 Marital Status: . Seperated Jul 23, 2015 Caffeine intake? . Status: Yes, What type: Coffee, Tea, Soft Drinks Jul 23, 2015 Do you exercise? . Answer: Yes, Type: walking Jul 23, 2015 Do you drink alcohol? . 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
--- OUTSIDE RECORDS SUMMARY | 2019-01-21 19:49 | XMS REPORT ---
Author Author Theo León eClinicalWorks Address Unknown Phone Unavailable Care Team Providers Care Iv Rn Name Role Phone Theo León Unavailable Allergies, Adverse Reactions, Alerts Substance Reaction Event Type N.K.D.A. Info Not Available Non Drug Allergy Encounters Encounter Location Date [facility] [...] 790.29 Active Problem Essential hypertension 401.9 Active Assessment Essential hypertension I10 Active Problem Depression 311 Active Problem Hypertension I10 Active Problem Prediabetes R73.09 Active Problem Hypercholesteremia E78.0 Active Problem Overweight 278.02 Active Problem Body Mass Index 27.0-27.9, adult V85.23 Active Problem Osteopenia 733.90 Active Problem Hyperlipidemia 272.4 Active Medications Medication Code System Code Instructions Start Date End Date Status Dosage Cymbalta MEDISPAN [address]-56 60 MG Active take one capsule by mouth every day Pantoprazole Sodium [facility] [address]-69 40 mg Orally Once a day Jul 20, [address] [facility] [address]-49 5 MG Orally Once a day Jul 20, 2015 Active [address] [facility] [address]-63 10 mg Orally Once a day Jul 23, 2015 Active [address] [facility] [address]-01 10 mg Orally Once a day Jul 23, 2015 Active 1 tablet Social History Social History Element Qualifiers Date Reported Fall Risk: . none in the past year Aug 18, 2015 Ethnicity . Status , Is angolan your primary language? 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
--- OUTSIDE RECORDS SUMMARY | 2019-01-21 19:49 | XMS REPORT ---
Author Author Hebert Toscano Organization [employer] Address Unknown Phone Unavailable Care Team Providers Care Digital Media Planner Name Role Phone Hebert Toscano CP Unavailable Allergies, Adverse Reactions, Alerts Substance Reaction Event Type N.K.D.A. Info Not Available Non Drug Allergy Problems Problem Type Condition Code Onset Dates Condition Status Assessment Prediabetes R73.09 Active Assessment Vitamin D deficiency E55.9 Active Assessment Stage 3 chronic kidney disease N18.3 Active Assessment Abnormal gamma globulin level R79.9 Active Assessment Abnormal laboratory test result R89.9 Active Problem HTN (hypertension) I10 Active Assessment HTN (hypertension) I10 Active Problem Fatty liver K76.0 Active Assessment Depressed F32.9 Active Problem Environmental allergies Z91.09 Active Problem History of anemia Z86.2 Active Problem Renal cyst, right N28.1 Active Problem Stage 3 chronic kidney disease N18.3 Active Problem Abnormal laboratory test result R89.9 Active Assessment Routine general medical examination at a health care facility Z00.00 Active Assessment Encounter for screening mammogram for breast cancer Z12.31 Active Problem Essential (primary) hypertension I10 Active Assessment Encounter for screening colonoscopy Z12.11 Active Problem Insomnia, unspecified type G47.00 Active Problem Osteopenia, unspecified location M85.80 Active Problem Hypertension I10 Active Problem Sciatica, left side M54.32 Active Problem Prediabetes R73.09 Active Problem Hypercholesteremia E78.0 Active Problem Depressed F32.9 Active Problem Vitamin D deficiency E55.9 Active Problem Elevated liver enzymes R74.8 Active Problem Elevated uric acid in blood E79.0 Active Problem Heartburn R12 Active Medications Medication Code System Code Instructions Start Date End Date Status Dosage Zetia [facility] 16958591096 10 Orally Once a day Active 1 tablet Bystolic [facility] 48679831309 20 mg Orally daily Jul 21, 2018 Active 1 tablet Cymbalta [facility] 66054361269 60 MG Orally daily Jul 23, 2018 Active 1 capsule Zetia [facility] 34308037773 10 mg Orally Once a day Active 1 tablet Pantoprazole Sodium [facility] 78289762547 20 MG Orally daily Active TAKE 1 TABLET BY MOUTH ONCE A DAY Amlodipine Besylate [facility] 49248710330 5 MG Orally daily Jul 21, 2018 Inactive 1 tablet Trazodone HCl [facility] 69341241226 50 mg Orally qhs PRN Jul 21, 2018 Active 1-2 tablet Amlodipine Besylate [facility] 96043763232 5 Orally qd LAST REFILL, NEEDS TO BE SEEN Active 1 tablet Pantoprazole Sodium [facility] 72235794052 20 mg Orally Once a day April 03, 2016 Active 1 tablet Pantoprazole Sodium [facility] 95248278613 20 mg Orally Once a day Active 1 tablet Ergocalciferol [facility] 16358292107 64781 UNIT Orally once per week Active 1 capsule Valsartan-Hydrochlorothiazide [facility] 12193498240 320-25 MG Orally Once a day April 02, 2017 Inactive 1/2 - 1 tablet Latisse [facility] 44344730315 0.03 % Externally Once a day May 02, 2017 Active 1 drop each eye Bystolic [facility] 30805120300 20 Orally qd LAST REFILL, NEEDS TO BE SEEN Active 1 tablet Tizanidine HCl [facility] 99662063923 2 MG Oral Active TK 1 T PO TID Imjpbeqdxe-Sxjmqbdmk-OYOT [facility] 23759035985 5-160-12.5 MG Orally Once a day Oct 03, 2018 Active 1 tablet Montelukast Sodium [facility] 72546545290 10 mg Active 1 TABLET DAILY ORAL 30 DAYS Vital Signs Date/Time: Oct 03, 2018 BMI 28.43 Index Weight 158 lbs Height 62.5 in Cardiac Monitoring Heart Rate 58 /min Blood Pressure Diastolic 68 mm Hg Blood Pressure Systolic 138 mm Hg Results No Known Results Summary Purpose [employer]Clinical[employer] Submission
--- OUTSIDE RECORDS SUMMARY | 2019-01-21 19:49 | XMS REPORT ---
Author Author Hebert Toscano Organization [employer] Address Unknown Phone Unavailable Care Team Providers Care [place] Dental Lab Technician Name Role Phone Hebert Toscano CP Unavailable [...] Problem History of anemia Z86.2 Active Assessment Hypertension I10 Active Problem Hypercholesteremia E78.0 Active Problem Elevated uric acid in blood E79.0 Active Problem Depressed F32.9 Active Problem Heartburn R12 Active Problem Prediabetes R73.09 Active Problem Vitamin D deficiency E55.9 Active Medications Medication Code System Code Instructions Start Date End Date Status Dosage Amlodipine Besylate [facility] 81716939129 5 MG Orally Once a day April 02, 2017 Active 1 tablet Results No Known Results Summary Purpose [employer]ClinicalWorks Submission
--- OUTSIDE RECORDS SUMMARY | 2019-01-21 19:49 | XMS REPORT ---
Author Author Hebert Toscano Organization [employer] Address Unknown Phone Unavailable Care Team Providers Care Carpet Cutter Name Role Phone Hebert Toscano CP Unavailable Allergies, Adverse Reactions, Alerts Substance Reaction Event Type N.K.D.A. Info Not Available Non Drug Allergy Problems Problem Type Condition Code Onset Dates Condition Status Problem Vitamin D deficiency E55.9 Active Problem HTN (hypertension) I10 Active Problem Elevated liver enzymes R74.8 Active Problem Osteopenia, unspecified location M85.80 Active Problem Insomnia, unspecified type G47.00 Active Problem Sciatica, left side M54.32 Active Problem Renal cyst, right N28.1 Active Problem Environmental allergies Z91.09 Active Problem History of anemia Z86.2 Active Problem Fatty liver K76.0 Active Assessment Left leg pain M79.605 Active Assessment Breast cancer screening Z12.31 Active Assessment Sciatica, left side M54.32 Active Problem Prediabetes R73.09 Active Problem Hypercholesteremia E78.0 Active Assessment Elevated serum creatinine R79.89 Active Problem Heartburn R12 Active Problem Depressed F32.9 Active Problem Elevated uric acid in blood E79.0 Active Medications Medication Code System Code Instructions Start Date End Date Status Dosage Bystolic [facility] [address]-12 20 MG Orally Once a day Active 1 tablet Zetia [facility] 07270933945 10 Orally Once a day Active 1 tablet Amlodipine Besylate [facility] [address]-29 5 MG Orally Once a day April 02, 2017 Active 1 tablet Pantoprazole Sodium [facility] [address]-90 20 MG Orally Once a day April 03, 2016 Active 1 tablet Trazodone HCl [facility] [address]-47 50 MG Orally Once a day February 28, 2017 Active 1 tablet at bedtime as needed Latisse [facility] [address]-86 0.03 % Externally Once a day May 02, 2017 Active 1 drop each eye Montelukast Sodium [facility] 33329966252 10 MG Oral Active TK 1 T PO ONCE QD Cymbalta [facility] 86055440667 60 MG Orally Once a day Active 1 capsule Valsartan-Hydrochlorothiazide [facility] [address]-04 320-25 MG Orally Once a day April 02, 2017 Active 1 tablet Ergocalciferol [facility] [address]-17 17067 UNIT Orally once per week March 09, 2017 Sep 05, 2017 Active 1 capsule Vital Signs Date/Time: May 02, 2017 BMI 28.25 Index Weight 157 lbs Height 62.5 in Cardiac Monitoring Heart Rate 62 /min Blood Pressure Diastolic 62 mm Hg Blood Pressure Systolic 104 mm Hg Results No Known Results Summary Purpose [employer]ClinicalWorks Submission
--- OUTSIDE RECORDS SUMMARY | 2019-01-21 19:49 | XMS REPORT ---
Author Author Hebert Toscano Organization [employer] Address Unknown Phone Unavailable Care Team Providers Care Control Center Operator Name Role Phone Hebert Toscano CP Unavailable [...] Instructions Start Date End Date [facility] D[facility] 20 MG Orally Once a day Active 1 tablet Results No Known Results Summary Purpose [employer]Works Submission
--- OUTSIDE RECORDS SUMMARY | 2019-01-21 19:49 | XMS REPORT ---
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 Problem Insomnia, unspecified type G47.00 Active Problem Osteopenia, unspecified location M85.80 Active Problem Hypertension I10 Active Problem Sciatica, left side M54.32 Active Problem Depressed F32.9 Active Problem Elevated uric acid in blood E79.0 Active Problem Elevated liver enzymes R74.8 Active Problem Hypercholesteremia E78.0 Active Problem Heartburn R12 Active Problem Prediabetes R73.09 Active Problem Vitamin D deficiency E55.9 Active Medications Medication Code System Code Instructions Start Date End Date Status Dosage Pantoprazole Sodium [facility] 83214523262 20 mg Orally once a day Active 1 tablet Results No Known Results Summary Purpose [employer]ClinicalWorks Submission
--- OUTSIDE RECORDS SUMMARY | 2019-01-21 19:49 | XMS REPORT ---
Author Author Hebert Toscano Organization [employer] Address Unknown Phone Unavailable Care Team Providers Care Smt Technician Name Role Phone Hebert Toscano Unavailable Encounters Encounter Location Date Labs [facility] January 18, 2015 [place] [facility] January 20, 2015 LAB RESULTS [facility] February 04, 2015 physical [facility] May 25, 2015 med refill [facility] March 30, 2014 STOMACH [facility] Jul 21, 2014 MEDICATION REFILL [facility] January 12, 2015 ECHO-ROYAL [facility] Aug 03, 2015 LEG PAIN/SWELLING [facility] Jul 20, 2015 3 DAY FOLLOW UP [facility] Jul 23, 2015 RF [facility] January 17, 2016 Unknown [facility] Aug 30, 2015 PRE OP RIGHT FOOT [facility] Sep 14, 2015 Referral [facility] Aug 13, 2015 TMT-ROYAL [facility] Aug 18, 2015 echo,carotid and venous doppler [facility] Aug 03, 2015 ABD-ROYAL [facility] Aug 11, 2015 Problems Problem Type Condition ICD-9 Code Onset Dates Condition Status Problem Osteopenia 733.90 Active Problem Depression 311 Active Problem Vitamin D deficiency E55.9 Active Problem Elevated uric acid in blood E79.0 Active Problem Elevated liver enzymes R74.8 Active Problem Hypertension I10 Active Problem Prediabetes R73.09 Active Problem Heartburn R12 Active Problem Hypercholesteremia E78.0 Active Medications Medication Code System Code Instructions Start Date End Date Status Dosage Cymbalta [facility] [address]-51 60 MG Active take one capsule by mouth every day Social History Social History Element Qualifiers Date Reported Fall Risk: . none in the past year Sep 14, 2015 Ethnicity . Status , Is faroese your primary language? 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
--- OUTSIDE RECORDS SUMMARY | 2019-01-21 19:49 | XMS REPORT ---
Author Author Emily Reyes Organization [employer] Address Unknown Phone Unavailable Care Team Providers Care Commissary Officer Name Role Phone Emily Reyes CP Unavailable Allergies No Known Allergies Problems [...] Problem History of anemia Z86.2 Active Assessment Hematuria, unspecified type R31.9 Active Problem Hypercholesteremia E78.0 Active Problem Elevated uric acid in blood E79.0 Active Problem Depressed F32.9 Active Problem Heartburn R12 Active Problem Prediabetes R73.09 Active Problem Vitamin D deficiency E55.9 Active Medications No Known Medications Results No Known Results Summary Purpose [employer]ClinicalWorks Submission
--- OUTSIDE RECORDS SUMMARY | 2019-01-21 19:49 | XMS REPORT ---
Author Author Jill Paz [facility] e[employer] Address Unknown Phone Unavailable Care Team Providers Care Perioperative Manager Name Role Phone Jill Paz Unavailable Encounters Encounter Location Date Labs [facility] January 18, 2015 [place] [facility] January 20, 2015 med refill [facility] March 30, 2014 STOMACH [facility] Jul 21, 2014 MEDICATION REFILL [facility] January 12, 2015 Problems Problem Type Condition ICD-9 Code Onset Dates Condition Status Assessment Elevated alkaline phosphatase level 790.5 Active Problem Overweight 278.02 Active Problem Body Mass Index 27.0-27.9, adult V85.23 Active Problem Hyperlipidemia 272.4 Active Problem Vitamin d deficiency 268.9 Active Problem Depression 311 Active Problem Prediabetes 790.29 Active Problem Essential hypertension 401.9 Active Social History Social History Element Qualifiers Date Reported Depression Screening: . 03/30/2014 January 12, 2015 Flu Vaccine: . 2012January 12, 2015 Ethnicity . Status , Is uzbek your primary language? Yes January 12, 2015 Fall Risk: . 03/30/2014 January 12, 2015 children . 3 January 12, 2015 Tobacco Use: . Are you a: never smoker January 12, 2015 Use of recreational / street drugs? . Answer: No January 12, 2015 Marital Status: . Seperated January 12, 2015 Do you drink alcohol? . 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
--- OUTSIDE RECORDS SUMMARY | 2019-01-21 19:49 | XMS REPORT ---
Author Author Hebert Toscano Organization [employer] Address Unknown Phone Unavailable Care Team Providers Care [place] Worker Name Role Phone Hebert Toscano CP Unavailable Allergies No Known Allergies Problems Problem Type Condition Code Onset Dates Condition Status Problem Environmental allergies Z91.09 Active Problem History of anemia Z86.2 Active Problem Renal cyst, right N28.1 Active Problem Stage 3 chronic kidney disease N18.3 Active Assessment HTN (hypertension) I10 Active Problem Abnormal laboratory test result R89.9 Active Problem Essential (primary) hypertension I10 Active Problem Insomnia, unspecified type G47.00 Active Problem Osteopenia, unspecified location M85.80 Active Problem Hypertension I10 Active Problem Sciatica, left side M54.32 Active Problem Prediabetes R73.09 Active Problem Hypercholesteremia E78.0 Active Problem Depressed F32.9 Active Problem Vitamin D deficiency E55.9 Active Problem Elevated liver enzymes R74.8 Active Problem Elevated uric acid in blood E79.0 Active Problem HTN (hypertension) I10 Active Problem Heartburn R12 Active Problem Fatty liver K76.0 Active Medications Medication Code System Code Instructions Start Date End Date Status Dosage Ggnnmlfqol-Jxnttmpoz-QOKJ [facility] 89544924642 5-160-12.5 MG Orally Once a day Oct 03, 2018 Inactive 1 tablet Amlodipine Besylate [facility] 33189717093 5 MG Orally daily Jul 21, 2018 Active 1 tablet Valsartan-Hydrochlorothiazide [facility] 22171815499 320-25 MG Orally Once a day April 02, 2017 Active 1/2-1 tablet Results No Known Results Summary Purpose eClinicalWorks Submission
--- OUTSIDE RECORDS SUMMARY | 2019-01-21 19:49 | XMS REPORT ---
Author Author Emily Reyes Organization [employer] Address Unknown Phone Unavailable Care Team Providers Care Cardiology Clinical Nurse Specialist Name Role Phone Emily Reyes CP Unavailable Allergies No Known Allergies Problems Problem Type Condition Code Onset Dates Condition Status Problem Elevated uric acid in blood E79.0 Active Problem Elevated liver enzymes R74.8 Active Problem Vitamin D deficiency E55.9 Active Problem Insomnia, unspecified type G47.00 Active Problem History of anemia Z86.2 Active Problem Osteopenia, unspecified location M85.80 Active Problem Environmental allergies Z91.09 Active Problem HTN (hypertension) I10 Active Problem Fatty liver K76.0 Active Problem Renal cyst, right N28.1 Active Problem Depressed F32.9 Active Problem Prediabetes R73.09 Active Problem Hypercholesteremia E78.0 Active Problem Heartburn R12 Active Medications Medication Code System Code Instructions Start Date End Date Status Dosage Ergocalciferol [facility] [place] [address]-42 [address] UNIT Orally once per week March 09, 2017 Sep 05, 2017 Active 1 capsule Results No Known Results Summary Purpose eClinicalWorks Submission
--- OUTSIDE RECORDS SUMMARY | 2019-01-21 19:49 | XMS REPORT ---
Author Author Hebert Toscano Organization [employer] Address Unknown Phone Unavailable Care Team Providers Care Nutrition Faculty Member Name Role Phone Hebert Toscano CP Unavailable [...] Problem History of anemia Z86.2 Active Assessment Insomnia, unspecified type G47.00 Active Problem Hypercholesteremia E78.0 Active Problem Elevated uric acid in blood E79.0 Active Problem Depressed F32.9 Active Problem Heartburn R12 Active Problem Prediabetes R73.09 Active Problem Vitamin D deficiency E55.9 Active Medications Medication Code System Code Instructions Start Date End Date Status Dosage Trazodone HCl [facility] 55931145537 50 mg Orally q hs PRN February 28, 2017 Active 1-2 tablet Results No Known Results Summary Purpose eClinicalWorks Submission
--- OUTSIDE RECORDS SUMMARY | 2019-01-21 19:49 | XMS REPORT ---
Author Author Hebert Toscano Organization [employer] Address Unknown Phone Unavailable Care Team Providers Care Senior Mainframe Developer Name Role Phone Hebert Toscano CP Unavailable Allergies, Adverse Reactions, Alerts Substance Reaction Event Type N.K.D.A. 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 Problem Insomnia, unspecified type G47.00 Active Problem Osteopenia, unspecified location M85.80 Active Problem Hypertension I10 Active Problem Sciatica, left side M54.32 Active Problem Depressed F32.9 Active Assessment Fatty liver K76.0 Active Assessment Type 2 diabetes mellitus without complication, without long-term current use of insulin E11.9 Active Problem Elevated uric acid in blood E79.0 Active Problem Elevated liver enzymes R74.8 Active Assessment Acute left ankle pain M25.572 Active Problem Hypercholesteremia E78.0 Active Problem Heartburn R12 Active Assessment 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 Problem Prediabetes R73.09 Active Problem Vitamin D deficiency E55.9 Active Medications Medication Code System Code Instructions Start Date End Date Status Dosage Tizanidine HCl [facility] 02745051893 2 MG Oral Active TK 1 T PO TID Pantoprazole Sodium [facility] 90468295713 20 MG Orally daily Active TAKE 1 TABLET BY MOUTH ONCE A DAY Zetia [facility] 79180606659 10 Orally Once a day Active 1 tablet Ergocalciferol [facility] 00069308569 52229 UNIT Orally once per week Active 1 capsule MetFORMIN HCl ER [place] 16072429924 500 mg Orally Once a day Nov 19, 2018 Active 1 tablet with evening meal Montelukast Sodium [facility] 48437207447 10 mg Active 1 TABLET DAILY ORAL 30 DAYS Trazodone HCl [facility] 49419115567 50 mg Orally qhs PRN Jul 21, 2018 Active 1-2 tablet Zetia [facility] 06710177809 10 mg Orally Once a day Nov 19, 2018 Active 1 tablet Amlodipine Besylate [facility] 58274738309 5 MG Orally daily Jul 21, 2018 Active 1 tablet Bystolic [facility] 79687395636 20 mg Orally daily Jul 21, 2018 Active 1 tablet Latisse [facility] 19455576992 0.03 % Externally Once a day May 02, 2017 Active 1 drop each eye Cymbalta [facility] 29478426930 60 MG Orally daily Jul 23, 2018 Active 1 capsule Valsartan-Hydrochlorothiazide [facility] 21413180827 320-25 MG Orally Once a day April 02, 2017 Active 1/2-1 tablet Vital Signs Date/Time: Nov 19, 2018 BMI 28.08 Index Weight 156 lbs Height 62.5 in Cardiac Monitoring Heart Rate 68 /min Blood Pressure Diastolic 60 mm Hg Blood Pressure Systolic 112 mm Hg Results No Known Results Summary Purpose eClinicalWorks Submission
--- OUTSIDE RECORDS SUMMARY | 2019-01-21 19:49 | XMS REPORT ---
Author Hebert Lindo Organization [employer] Address Unknown Phone Unavailable Care Team Providers Care Chief Of Planning Name Role Phone Hebert Toscano CP Unavailable Allergies, Adverse Reactions, Alerts Substance Reaction Event Type N.K.D.A. Info Not Available Non Drug Allergy Problems Problem Type Condition Code Onset Dates Condition Status Assessment Pain in right leg M79.604 Active Assessment Pain of left leg M79.605 Active Assessment Osteopenia, unspecified location M85.80 Active Assessment Insomnia, unspecified type G47.00 Active Assessment Heartburn R12 Active Problem Heartburn R12 Active Assessment Depressed F32.9 Active Problem Vitamin D deficiency E55.9 Active Assessment Environmental allergies Z91.09 Active Problem Elevated liver enzymes R74.8 Active Problem Renal cyst, right N28.1 Active Problem HTN (hypertension) I10 Active Problem Sciatica, left side M54.32 Active Problem Insomnia, unspecified type G47.00 Active Assessment Hypertension I10 Active Assessment Hypercholesteremia E78.0 Active Problem Hypertension I10 Active Assessment Vitamin D deficiency E55.9 Active Problem Fatty liver K76.0 Active Problem Environmental allergies Z91.09 Active Problem Osteopenia, unspecified location M85.80 Active Problem History of anemia Z86.2 Active Assessment Screening for breast cancer Z12.39 Active Assessment Encntr for general adult medical exam w/o abnormal findings Z00.00 Active Assessment Screening for HIV (human immunodeficiency virus) Z11.4 Active Assessment Screening for osteoporosis Z13.820 Active Problem Hypercholesteremia E78.0 Active Problem Elevated uric acid in blood E79.0 Active Problem Depressed F32.9 Active Problem Prediabetes R73.09 Active Medications Medication Code System Code Instructions Start Date End Date Status Dosage Ergocalciferol [facility] 70316239796 94524 UNIT Orally once per week March 09, 2017 February 09, 2018 Active 1 capsule Montelukast Sodium [facility] 35888016504 10 mg Oral daily Active 1 tablet Trazodone HCl [facility] 42268386413 50 mg Orally Once a day February 28, 2017 Active 1-2 tablet at bedtime as needed Latisse [facility] 12091049850 0.03 % Externally Once a day May 02, 2017 Active 1 drop each eye Cymbalta [facility] 41400115863 60 MG Orally Once a day Active 1 capsule Pantoprazole Sodium [facility] 12499050729 20 MG Orally Once a day April 03, 2016 Active 1 tablet Valsartan-Hydrochlorothiazide [facility] 75565827205 320-25 MG Orally Once a day April 02, 2017 Active 1/2 - 1 tablet Amlodipine Besylate [facility] 38961354532 5 MG Orally Once a day April 02, 2017 Active 1 tablet Bystolic [facility] 39178142170 20 MG Orally Once a day Active 1 tablet Zetia [facility] 46109130412 10 Orally Once a day Active 1 tablet Vital Signs Date/Time: Aug 13, 2017 BMI 28.08 Index Weight 156 lbs Height 62.5 in Cardiac Monitoring Heart Rate 72 /min Blood Pressure Diastolic 60 mm Hg Blood Pressure Systolic 112 mm Hg Results Name Result Date Reference Range Unit Abnormality Flag Chest 2 views- Xray Summary Purpose [employer]Works Submission
--- OUTSIDE RECORDS SUMMARY | 2019-01-21 19:49 | XMS REPORT ---
Author Author Emily Reyes Organization [employer] Address Unknown Phone Unavailable Care Team Providers Care Bottling Line Attendant Name Role Phone Emily Reyes CP Unavailable [...] Active Problem Fatty liver K76.0 Active Medications No Known Medications Results No Known Results Summary Purpose [employer] Submission
--- OUTSIDE RECORDS SUMMARY | 2019-01-21 19:49 | XMS REPORT ---
Author Author Hebert Toscano Organization [employer] Address Unknown Phone Unavailable Care Team Providers Care Integration Director Name Role Phone Hebert Toscano CP Unavailable [...] Problem History of anemia Z86.2 Active Assessment Depressed F32.9 Active Problem Hypercholesteremia E78.0 Active Problem Elevated uric acid in blood E79.0 Active Problem Depressed F32.9 Active Problem Heartburn R12 Active Problem Prediabetes R73.09 Active Problem Vitamin D deficiency E55.9 Active Medications Medication Code System Code Instructions Start Date End Date Status Dosage Cymbalta [facility] 99998544575 60 MG Orally Once a day Active 1 capsule Results No Known Results Summary Purpose [employer] Submission
--- OUTSIDE RECORDS SUMMARY | 2019-01-21 19:50 | XMS REPORT ---
Author Author Kim Calero [facility] [employer] Address Unknown Phone Unavailable Care Team Providers Care Ecotherapist Name Role Phone Kim Calero CP Unavailable Encounters Encounter Location Date ECHO-ROYAL [facility] Aug 03, 2015 RF [facility] January 17, 2016 RF [facility] January 24, 2016 Unknown [facility] Aug 30, 2015 PRE OP RIGHT FOOT [facility] Sep 14, 2015 Referral [facility] Aug 13, 2015 TMT-ROYAL [facility] Aug 18, 2015 echo,carotid and venous doppler [facility] Aug 03, 2015 ABD-ROYAL [facility] Aug 11, 2015 Refill [facility] January 26, 2016 Labs [facility] January 18, 2015 NV-BW [facility] January 20, 2015 LAB RESULTS [facility] February 04, 2015 physical [facility] May 25, 2015 med refill [facility] March 30, 2014 STOMACH [facility] Jul 21, 2014 MEDICATION REFILL [facility] January 12, 2015 Medication [facility] March 15, 2016 Back pain [facility] March 07, 2016 LEG PAIN/SWELLING [facility] Jul 20, 2015 3 DAY FOLLOW UP [facility] Jul 23, 2015 Refill [facility] Aug 24, 2016 pain in lower back [facility] March 23, 2016 Test results [facility] April 13, 2016 FOLLOW UP ON FOOT [facility] Aug 15, 2016 Unknown [facility] Aug 17, 2016 Problems Problem Type Condition ICD-9 Code Onset Dates Condition Status Problem Depression 311 Active Problem Prediabetes R73.09 Active Problem Osteopenia 733.90 Active Problem Elevated liver enzymes R74.8 Active Problem Vitamin D deficiency E55.9 Active Problem HTN (hypertension) I10 Active Problem Hypercholesteremia E78.0 Active Problem Hypertension I10 Active Problem Elevated uric acid in blood E79.0 Active Problem Heartburn R12 Active Medications Medication Code System Code Instructions Start Date End Date Status Dosage Cymbalta [facility] 18190595415 60 MG Orally Once a day Active 1 capsule Social History Social History Element Qualifiers Date Reported Depression Screening: . negative Aug 15, 2016 Ethnicity . Status , Is kyrgyz your primary language? Yes Aug 15, 2016 Fall Risk: . none in the past year Aug 15, 2016 children . 3 Aug 15, 2016 Tobacco Use: . Are you a: never smoker Aug 15, 2016 Flu Vaccine: . 2014Aug 15, 2016 Use of recreational / street drugs? . Answer: No Aug 15, 2016 Marital Status: . Seperated Aug 15, 2016 Caffeine intake? . Status: Yes, What type: Coffee, Tea, Soft Drinks Aug 15, 2016 Do you exercise? . Answer: Yes, Type: walking Aug 15, 2016 Do you drink alcohol? . 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
--- OUTSIDE RECORDS SUMMARY | 2019-01-21 19:50 | XMS REPORT ---
Author Author Kim Calero [employer] Address Unknown Phone Unavailable Care Team Providers Care Engineer Of System Development Name Role Phone Kim Calero CP Unavailable Allergies, Adverse Reactions, Alerts Substance Reaction Event Type N.K.D.A. Info Not Available Non Drug Allergy Encounters Encounter Location Date Labs [facility] January 18, 2015 NV-BW [facility] January 20, 2015 LAB RESULTS [facility] February 04, 2015 physical [facility] May 25, 2015 med refill [facility] March 30, 2014 STOMACH [facility] Jul 21, 2014 MEDICATION REFILL [facility] January 12, 2015 ECHO-ROYAL [facility] Aug 03, 2015 Medication [facility] March 15, 2016 Back pain [facility] March 07, 2016 LEG PAIN/SWELLING [facility] Jul 20, 2015 3 DAY FOLLOW UP [facility] Jul 23, 2015 RF [facility] January 17, 2016 RF [facility] January 24, 2016 Unknown [facility] Aug 30, 2015 PRE OP RIGHT FOOT [facility] Sep 14, 2015 pain in lower back [facility] March 23, 2016 Referral [facility] Aug 13, 2015 Test results [facility] April 13, 2016 TMT-ROYAL [facility] Aug 18, 2015 FOLLOW UP ON FOOT [facility] Aug 15, 2016 echo,carotid and venous doppler [facility] Aug 03, 2015 ABD-ROYAL [facility] Aug 11, 2015 Refill [facility] January 26, 2016 Problems Problem Type Condition ICD-9 Code Onset Dates Condition Status Problem Depression 311 Active Problem Prediabetes R73.09 Active Problem Osteopenia 733.90 Active Problem Elevated liver enzymes R74.8 Active Problem Vitamin D deficiency E55.9 Active Problem HTN (hypertension) I10 Active Problem Hypercholesteremia E78.0 Active Problem Hypertension I10 Active Problem Elevated uric acid in blood E79.0 Active Problem Heartburn R12 Active Assessment Needs flu shot Z23 Active Assessment Pre-operative clearance Z01.818 Active Assessment Prediabetes R73.09 Active Assessment Right foot pain M79.671 Active Assessment Hypertension I10 Active Assessment History of bunionectomy of right great toe Z98.890 Active Assessment Screening for breast cancer Z12.39 Active Medications Medication Code System Code Instructions Start Date End Date Status Dosage Pantoprazole Sodium [facility] 38090893180 40 Orally Once a day Active 1 tablet Cymbalta [facility] 57109049028 60 MG Active take one capsule by mouth every day Zetia [facility] [address]-05 10 mg Orally Once a day Jul 23, 2015 Active 1 tablet Bystolic [facility] 46171456836 10 MG Orally Once a day Active 1 tablet Bystolic [facility] [address]-22 20 mg Orally Once a day March 23, 2016 Active 1 tablet [facility] 223094[facility] 10 mg Orally Once a day Active 1 tablet Social History Social History Element Qualifiers Date Reported Depression Screening: . negative Aug 15, 2016 Ethnicity . Status , Is chadian your primary language? 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
--- OUTSIDE RECORDS SUMMARY | 2019-01-21 19:50 | XMS REPORT ---
Author Author Hebert Toscano Organization [employer] Address Unknown Phone Unavailable Care Team Providers Care Delivery Merchandiser Name Role Phone Hebert Toscano Unavailable Encounters Encounter Location Date Labs [facility] January 18, 2015 NV-BW [facility] January 20, 2015 LAB RESULTS [facility] February 04, 2015 physical [facility] May 25, 2015 med refill [facility] March 30, 2014 STOMACH [facility] Jul 21, 2014 MEDICATION REFILL [facility] January 12, 2015 ECHO-ROYAL [facility] Aug 03, 2015 LEG PAIN/SWELLING [facility] Jul 20, 2015 3 DAY FOLLOW UP [facility] Jul 23, 2015 RF [facility] January 17, 2016 RF [facility] January 24, 2016 Unknown [facility] Aug 30, 2015 PRE OP RIGHT FOOT [facility] Sep 14, 2015 Referral [facility] Aug 13, 2015 TMT-ROYAL [facility] Aug 18, 2015 echo,carotid and venous doppler [facility] Aug 03, 2015 ABD-ROYAL [facility] Aug 11, 2015 [...] Start Date End Date Status Dosage Bystolic [facility] [address]-33 5 MG Orally Once a day (MUST SEE DOCTOR BEFORE NEXT REFILL) Jul 20, 2015 Active 1 tablet Lisinopril [facility] [address]-41 10 mg Orally Once a day (MUST SEE DOCTOR BEFORE NEXT REFILL) Jul 23, 2015 Active 1 tablet Social History Social History Element Qualifiers Date Reported Fall Risk: . none in the past year Sep 14, 2015 Ethnicity . Status , Is yoruba your primary language? 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
--- OUTSIDE RECORDS SUMMARY | 2019-01-21 19:50 | XMS REPORT | Summary of Care ---
Author Organization Unknown Address Unknown Phone Unavailable Encounter [facility](PILO) [id number] Date(s): 09/14/14 - 09/14/14 [facility] [address] Discharge Disposition: Home Physician Attending: Francis Street DO Physician_Referring: Francis Street DO Reason for Visit BREAST MASS Problem List No data available for this section Allergies, Adverse Reactions, Alerts Substance Reaction Severity Status NKDA Active Medications No data available for this section Medications Administered During Your Visit No data available for this section Immunizations No data available for this section Social History Social History Type Response
--- OUTSIDE RECORDS SUMMARY | 2019-01-21 19:50 | XMS REPORT ---
Author Author Kim Calero [facility] [employer] Address Unknown Phone Unavailable Care Team Providers Care Engineer Name Role Phone Kim Calero CP Unavailable Encounters Encounter Location Date Labs [facility] January 18, 2015 NV-BW [facility] January 20, 2015 LAB RESULTS [facility] February 04, 2015 physical [facility] May 25, 2015 med refill [facility] March 30, 2014 STOMACH [facility] Jul 21, 2014 MEDICATION REFILL [facility] January 12, 2015 ECHO-ROYAL [facility] Aug 03, 2015 Medication [facility] March 15, 2016 Back pain [facility] March 07, 2016 LEG PAIN/SWELLING [facility] Jul 20, 2015 3 DAY FOLLOW UP [facility] Jul 23, 2015 RF [facility] January 17, 2016 RF [facility] January 24, 2016 Unknown [facility] Aug 30, 2015 PRE OP RIGHT FOOT [facility] Sep 14, 2015 pain in lower back [facility] March 23, 2016 Referral [facility] Aug 13, 2015 Test results [facility] April 13, 2016 TMT-ROYAL [facility] Aug 18, 2015 echo,carotid and venous doppler [facility] Aug 03, 2015 ABD-ROYAL [facility] Aug 11, 2015 Refill [facility] [...] Instructions Start Date End Date Status Dosage Cyclobenzaprine HCl [facility] [address]-36 10 mg Orally one at hour of sleep daily April 13, 2016 May 13, 2016 Active 1 tablet Naproxen [facility] [address]-51 375 MG Orally Twice a day April 13, 2016 May 13, 2016 Active 1 tablet Social History Social History Element Qualifiers Date Reported Depression Screening: . negative March 23, 2016 Ethnicity . Status , Is indonesian your primary language? Yes March 23, 2016 Fall Risk: . none in the past year March 23, 2016 children . 3 March 23, 2016 Tobacco Use: . Are you a: never smoker March 23, 2016 Flu Vaccine: . 2014March 23, 2016 Use of recreational / street drugs? . Answer: No March 23, 2016 Marital Status: . Seperated March 23, 2016 Caffeine intake? . Status: Yes, What type: Coffee, Tea, Soft Drinks March 23, 2016 Do you exercise? . Answer: Yes, Type: walking March 23, 2016 Do you drink alcohol? . 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
--- OUTSIDE RECORDS SUMMARY | 2019-01-21 19:50 | XMS REPORT ---
Author Author Kim Calero [employer] Address Unknown Phone Unavailable Care Team Providers Care Space Controller Name Role Phone Kim Calero CP Unavailable Allergies, Adverse Reactions, Alerts Substance Reaction Event Type N.K.D.A. Info Not Available Non Drug Allergy Encounters [facility], 2015 Medication [facility] March 15, 2016 Back pain [facility] March 07, 2016 LEG PAIN/SWELLING [facility] [...] Sep 14, 2015 pain in lower back [facility] March 23, 2016 Referral [facility] Aug 13, 2015 TMT-ROYAL [facility] Aug 18, 2015 echo,carotid and venous doppler [facility] Aug 03, 2015 ABD-ROYAL [facility] Aug 11, 2015 Refill [facility] January 26, 2016 [...] E79.0 Active Problem Heartburn R12 Active Assessment Shingles B02.9 Active Assessment Low back pain M54.5 Active Assessment Hypertension I10 Active Medications Medication Code System Code Instructions Start Date End Date Status Dosage Pantoprazole Sodium [facility] 73253945061 40 Orally Once a day Active 1 tablet [facility]olic [facility] [address]-96 20 mg Orally Once a day March 23, 2016 Active 1 tablet Lisinopril [facility] [address]-49 10 mg Orally Once a day Active 1 tablet Medrol (Rishabh) [facility] [address]-75 4 mg Orally daily March 21, 2016 March 27, 2016 Active as directed Cymbalta [facility] [address]-68 60 MG Active take one capsule by mouth every day Zetia [facility] [address]-13 10 mg Orally Once a day Jul 23, 2015 Active 1 tablet Bystolic [facility] [address]-88 10 MG Orally Once a day March 07, 2016 Inactive 1 tablet Social History Social History Element Qualifiers Date Reported Depression Screening: . negative March 23, 2016 Ethnicity . Status , Is bulgarian your primary language? 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, 2016 Family history Qualifier Description Comment Date Reported Maternal Grandmother Comment not available March 23, 2016 Paternal Grandmother Comment not available March 23, 2016 Siblings 1 sister VANG, 1 sister cancer 2 brothers cancer March 23, 2016 Maternal Grandfather Comment not available March 23, 2016 Children Comment not available March 23, 2016 Father hypertension March 23, 2016 Paternal Grandfather Comment not available March 23, 2016 Mother hypertension March 23, 2016 Other: Comment not available March 23, 2016 Vital Signs Date/Time: March 23, 2016 Weight 164 lbs Height 62.5 in Cardiac Monitoring Heart Rate 65 /min Blood Pressure Diastolic 90 mm Hg Blood Pressure Systolic 168 mm Hg Summary Purpose eClinicalWorks Submission
--- OUTSIDE RECORDS SUMMARY | 2019-01-21 19:50 | XMS REPORT ---
Author Author Emily Reyes [facility] [place] eClinicalWorks Address Unknown Phone Unavailable Care Team Providers Care Technology Sales Representative Name Role Phone Emily Reyes CP Unavailable Allergies, Adverse Reactions, Alerts Substance Reaction Event Type N.K.D.A. Info Not Available Non Drug Allergy Encounters Encounter Location Date Labs [facility] January 18, 2015 NV-BW [facility] January 20, 2015 LAB RESULTS [facility] February 04, 2015 physical [facility] May 25, 2015 med refill [facility] March 30, 2014 STOMACH [facility] Jul 21, 2014 MEDICATION REFILL [facility] January 12, 2015 ECHO-ROYAL [facility] Aug 03, 2015 Back pain [facility] March 07, 2016 LEG PAIN/SWELLING [facility] Jul 20, 2015 3 DAY FOLLOW UP [facility] Jul 23, 2015 RF [facility] January 17, 2016 RF [facility] January 24, 2016 Unknown [facility] Aug 30, 2015 PRE OP RIGHT FOOT [facility] Sep 14, 2015 Referral [facility] Aug 13, 2015 TMT-ROYAL [facility] Aug 18, 2015 echo,carotid and venous doppler [facility] Aug 03, 2015 ABD-ROYAL [place] Aug 11, 2015 Refill [facility] January 26, [...] R12 Active Assessment Shingles B02.9 Active Assessment HTN (hypertension) I10 Active Assessment Low back pain M54.5 Active Assessment Sciatica M54.30 Active Medications Medication Code System Code Instructions Start Date End Date Status Dosage Bystolic MEDISPAN 96667264503 5 MG Orally Once a day (MUST SEE DOCTOR BEFORE NEXT REFILL) Inactive 1 tablet [facility]inopril [facility] 78372453995 10 mg Orally Once a day (MUST SEE DOCTOR BEFORE NEXT REFILL) Active 1 tablet Zet[facility] [address]-54 10 mg Orally Once a day Jul 23, 2015 Active 1 tablet Bystolic MEDISPAN [address]-17 10 MG Orally Once a day March 07, 2016 Active 1 tablet Cymbalta [facility] [address]-63 60 MG Active take one capsule by mouth every day Pantoprazole Sodium [facility] 89872710182 40 Orally Once a day Active 1 tablet Valtrex [facility] [address]-79 1 GM Orally every 8 hours March 07, 2016 March 14, 2016 Active 1 tablet Social History Social History Element Qualifiers Date Reported Depression Screening: . negative March 07, 2016 Ethnicity . Status , Is chadian your primary language? Yes March 07, 2016 Fall Risk: . none in the past year March 07, 2016 children . 3 March 07, 2016 Tobacco Use: . Are you a: never smoker March 07, 2016 Flu Vaccine: . 2014March 07, 2016 Use of recreational / street drugs? . Answer: No March 07, 2016 Marital Status: . Seperated March 07, 2016 Caffeine intake? . Status: Yes, What type: Coffee, Tea, Soft Drinks March 07, 2016 Do you exercise? . Answer: Yes, Type: walking March 07, 2016 Do you drink alcohol? . 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, 2016 Family history Qualifier Description Comment Date Reported Maternal Grandmother Comment not available March 07, 2016 Paternal Grandmother Comment not available March 07, 2016 Siblings 1 sister VANG, 1 sister cancer 2 brothers cancer March 07, 2016 Maternal Grandfather Comment not available March 07, 2016 Children Comment not available March 07, 2016 Father hypertension March 07, 2016 Paternal Grandfather Comment not available March 07, 2016 Mother hypertension March 07, 2016 Other: Comment not available March 07, 2016 Vital Signs Date/Time: March 07, 2016 Weight 161 lbs Height 62.5 in Cardiac Monitoring Heart Rate 75 /min Blood Pressure Diastolic 102 mm Hg Blood Pressure Systolic 185 mm Hg Results URINE AUTO W/O SCOPE Summary Purpose eClinicalWorks Submission
--- OUTSIDE RECORDS SUMMARY | 2019-01-21 19:50 | XMS REPORT ---
Author Author Emily Reyes Organization eClinicalWorks Address Unknown Phone Unavailable Care Team Providers Care It Network Architect Name Role Phone Emiyl Reyes Unavailable Encounters Encounter Location Date ECHO-ROYAL [place] Aug 03, 2015 RF [facility] January 17, 2016 RF [facility] January 24, 2016 Unknown [facility] Aug 30, 2015 PRE OP RIGHT FOOT [facility] Sep 14, 2015 Referral [facility] Aug 13, 2015 TMT-ROYAL [facility] Aug 18, 2015 echo,carotid and venous doppler [facility] Aug 03, 2015 ABD-ROYAL [facility] Aug 11, 2015 Refill [facility] January 26, 2016 Labs [facility] January 18, 2015 NV-BW [facility] January 20, 2015 LAB RESULTS [facility] February 04, 2015 physical [facility] May 25, 2015 med refill [facility] March 30, 2014 STOMACH [facility] Jul 21, 2014 MEDICATION REFILL [facility] January 12, 2015 Medication [facility] March 15, 2016 Back pain [facility] March 07, 2016 LEG PAIN/SWELLING [facility] Jul 20, 2015 3 DAY FOLLOW UP [facility] Jul 23, 2015 pain in lower back [facility] March 23, 2016 Test results [facility] April 13, 2016 FOLLOW UP ON FOOT [facility] Aug 15, 2016 Unknown [facility] Aug 17, 2016 Problems Problem Type Condition ICD-9 Code Onset Dates Condition Status Problem Depression 311 Active Problem Prediabetes R73.09 Active Problem Osteopenia 733.90 Active Problem Elevated liver enzymes R74.8 Active Problem Vitamin D deficiency E55.9 Active Problem HTN (hypertension) I10 Active Problem Hypercholesteremia E78.0 Active Problem Hypertension I10 Active Problem Elevated uric acid in blood E79.0 Active Problem Heartburn R12 Active Social History Social History Element Qualifiers Date Reported Depression Screening: . negative Aug 15, 2016 Ethnicity . Status , Is nigerien your primary language? 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
--- OUTSIDE RECORDS SUMMARY | 2019-01-21 19:50 | XMS REPORT | Summary of Care ---
Author Organization Unknown Address Unknown Phone Unavailable Encounter [facility] [email or web address]_[email or web address](PILO) [id number] Date(s): 08/04/14 - 08/04/14 [facility] [address] Discharge Disposition: Home Physician Attending: Francis Street DO Physician_Referring: Francis Street DO Reason for Visit SCREENING Problem List No data available for this section Allergies, Adverse Reactions, Alerts Substance Reaction Severity Status NKDA Active Medications No data available for this section Medications Administered During Your Visit No data available for this section Immunizations No data available for this section Social History Social History Type Response
--- OUTSIDE RECORDS SUMMARY | 2019-01-21 19:50 | XMS REPORT ---
Author Author Hebert Toscano Organization eClinicalWorks Address Unknown Phone Unavailable Care Team Providers Care Federal Aid Coordinator Name Role Phone Hebert Toscano Unavailable Encounters Encounter Location Date Labs [facility] January 18, 2015 NV-BW [facility] January 20, 2015 LAB RESULTS [facility] February 04, 2015 physical [facility] May 25, 2015 med refill [facility] March 30, 2014 STOMACH [facility] Jul 21, 2014 MEDICATION REFILL [facility] January 12, 2015 ECHO-ROYAL [facility] Aug 03, 2015 LEG PAIN/SWELLING [facility] Jul 20, 2015 3 DAY FOLLOW UP [facility] Jul 23, 2015 RF [facility] January 17, 2016 RF [facility] January 24, 2016 Unknown [facility] Aug 30, 2015 PRE OP RIGHT FOOT [facility] Sep 14, 2015 Referral [facility] Aug 13, 2015 TMT-ROYAL [facility] Aug 18, 2015 echo,carotid and venous doppler [facility] Aug 03, 2015 ABD-ROYAL [facility] Aug 11, 2015 Refill [facility] January 26, 2016 [...] Start Date End Date Status Dosage Zetia MEDISPAN [address]-95 10 mg Orally Once a day Jul 23, 2015 Active 1 tablet Social History Social History Element Qualifiers Date Reported Fall Risk: . none in the past year Sep 14, 2015 Ethnicity . Status , Is dutch your primary language? 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
--- OUTSIDE RECORDS SUMMARY | 2019-01-21 19:50 | XMS REPORT ---
Author Author Emily Reyes Organization eClinicalWorks Address Unknown Phone Unavailable Care Team Providers Care Yard Specialist Name Role Phone Emily Reyes CP Unavailable Allergies No Known Allergies Problems Problem Type Condition Code Onset Dates Condition Status Problem Hypertension I10 Active Problem Heartburn R12 Active Problem Hypercholesteremia E78.0 Active Problem Renal cyst, right N28.1 Active Problem Environmental allergies Z91.09 Active Problem Fatty liver K76.0 Active Problem Vitamin D deficiency E55.9 Active Problem Elevated uric acid in blood E79.0 Active Problem HTN (hypertension) I10 Active Problem Elevated liver enzymes R74.8 Active Problem Depressed F32.9 Active Problem Osteopenia 733.90 Active Problem Prediabetes R73.09 Active Medications No Known Medications Results No Known Results Summary Purpose eClinicalWorks Submission
--- OUTSIDE RECORDS SUMMARY | 2019-01-21 19:50 | XMS REPORT ---
Author Author Emily Reyes [facility] eClinicalWorks Address Unknown Phone Unavailable Care Team Providers Care Tire Setter Name Role Phone Emily Reyes Unavailable Encounters [facility] Aug [facility], 2015 Medication [facility] March 15, 2016 Back pain [facility] March 07, 2016 LEG PAIN/SWELLING [facility] Jul 20, 2015 3 DAY FOLLOW UP [facility] Jul 23, 2015 RF [facility] January 17, 2016 RF [facility] January 24, 2016 Unknown [facility] Aug 30, 2015 PRE OP RIGHT FOOT [facility] Sep 14, 2015 Referral [facility] Aug 13, 2015 TMT-ROYAL [facility] Aug 18, 2015 echo,carotid and venous doppler [facility] Aug 03, 2015 ABD-ROYAL [facility] Aug 11, 2015 Refill [facility] [...] Instructions Start Date End Date Status Dosage Medrol (Rishabh) MEDISPAN [address]-21 4 mg Orally daily March 21, 2016 March 27, 2016 Active as directed Social History Social History Element Qualifiers Date Reported Depression Screening: . negative March 07, 2016 Ethnicity . Status , Is sierra leonean your primary language? 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
--- OUTSIDE RECORDS SUMMARY | 2019-01-21 19:50 | XMS REPORT ---
Author Author Hebert Toscano Organization eClinicalWorks Address Unknown Phone Unavailable Care Team Providers Care Associate Professor Of Communication Name Role Phone Hebert Toscano CP Unavailable Allergies, Adverse Reactions, Alerts Substance Reaction Event Type N.K.D.A. Info Not Available Non Drug Allergy Encounters Encounter Location Date ECHO-ROYAL [facility] Aug 03, 2015 RF [facility] January 26, 2016 Labs [facility] January 12, 2015 Medication [facility] March 15, 2016 Back pain [facility] March 07, 2016 LEG PAIN/SWELLING [facility] Jul 20, 2015 3 DAY FOLLOW UP [facility] Jul 23, 2015 Refill [facility] Aug 24, 2016 MEDICATION REFILLS [facility] Nov 21, 2016 pain in lower back [facility] March 23, 2016 Test results [facility] April 13, 2016 FOLLOW UP ON FOOT [facility] Aug 15, 2016 Unknown [facility] Aug 17, 2016 Problems Problem Type Condition ICD-9 Code Onset Dates Condition Status Problem Hypertension I10 Active Problem Heartburn R12 Active Problem Hypercholesteremia E78.0 Active Problem Renal cyst, right N28.1 Active Assessment Fatty liver K76.0 Active Problem Environmental allergies Z91.09 Active Assessment Renal cyst, right N28.1 Active Assessment Need for hepatitis C screening test Z11.59 Active Problem Fatty liver K76.0 Active Problem Vitamin D deficiency E55.9 Active Problem Elevated uric acid in blood E79.0 Active Problem HTN (hypertension) I10 Active Problem Elevated liver enzymes R74.8 Active Assessment Prediabetes R73.09 Active Assessment Hypercholesteremia E78.0 Active Assessment Elevated liver enzymes R74.8 Active Assessment Vitamin D deficiency E55.9 Active Assessment Hypertension I10 Active Problem Depressed F32.9 Active Assessment Heartburn R12 Active Problem Osteopenia 733.90 Active Assessment Environmental allergies Z91.09 Active Assessment Depressed F32.9 Active Problem Prediabetes R73.09 Active Medications Medication Code System Code Instructions Start Date End Date Status Dosage [facility]op[facility] 61128338591 10 mg Orally Once a day Active 1 tablet [facility] 07808175862 10 MG Orally Once a day Active 1 tablet Singulair [facility] [address]-22 10 MG Orally Once a day Nov 21, 2016 Active 1 tablet Pantoprazole Sodium [facility] 62086609456 40 Orally Once a day Active 1 tablet [facility] [address]-22 20 mg Orally Once a day March 23, 2016 Active 1 tablet Cymbalta [facility] 31525774482 60 MG Orally Once a day Active 1 capsule Zetia [facility] 48119516063 10 mg Orally Once a day Active 1 tablet Social History Social History Element Qualifiers Date Reported Depression Screening: . negative Nov 21, 2016 Ethnicity . Status , Is maltese your primary language? Yes Nov 21, 2016 Fall Risk: . none in the past year Nov 21, 2016 children . 3 Nov 21, 2016 Tobacco Use: . Are you a: never smoker Nov 21, 2016 Flu Vaccine: . 2014Nov 21, 2016 Use of recreational / street drugs? . Answer: No Nov 21, 2016 Marital Status: . Seperated Nov 21, 2016 Caffeine intake? . Status: Yes, What type: Coffee, Tea, Soft Drinks Nov 21, 2016 Do you exercise? . Answer: Yes, Type: walking Nov 21, 2016 Do you drink alcohol? . 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, 2016 Family history Qualifier Description Comment Date Reported Maternal Grandmother Comment not available Nov 21, 2016 Paternal Grandmother Comment not available Nov 21, 2016 Siblings 1 sister VANG, 1 sister cancer 2 brothers cancer Nov 21, 2016 Maternal Grandfather Comment not available Nov 21, 2016 Children Comment not available Nov 21, 2016 Father hypertension Nov 21, 2016 Paternal Grandfather Comment not available Nov 21, 2016 Mother hypertension Nov 21, 2016 Other: Comment not available Nov 21, 2016 Vital Signs Date/Time: Nov 21, 2016 Weight 158 lbs Height 62.5 in Blood Pressure Diastolic 86 mm Hg Blood Pressure Systolic 140 mm Hg Summary Purpose eClinicalWorks Submission
[2019-01-21] MEDS ORDERED: ALBUTEROL/IPRATROPIUM 3 ML NEB NEB STA (20:14)
[2019-01-21] MEDS ORDERED: MECLIZINE HCL 12.5 MG TAB PO STA (20:14)
--- NOTE | 2019-01-21 21:15 | Diagnostic Imaging Report ---
EXAMINATION: Head CT without contrast. HISTORY:Vertigo. COMPARISON:None. TECHNIQUE: Multidetector axial images were obtained from the foramen magnum to the vertex without contrast. The images were reconstructed using brain and bone algorithms. Thin section brain images were reformatted into coronal and sagittal planes. Dose modulation, iterative reconstruction, and/or weight based adjustment of the mA/kV was utilized to reduce the radiation dose to as low as reasonably achievable. Intravenous contrast: None IMAGE QUALITY: Acceptable. FINDINGS: Skull/scalp: No lytic or blastic. lesions. No surgical changes. Parenchyma: Nonspecific few, scattered supratentorial white matter hypodensity are likely related to small vessel ischemic changes. No acute hemorrhage, mass or acute major vascular territorial infarct. Arteries: No density suggestive of thrombosis. Dural sinuses: No abnormal density suggestive of thrombosis. Ventricles: No hydrocephalus or displacement. Extra-axial spaces: No abnormal density. Brain volume: Normal for age. Craniocervical junction: No mass, Chiari malformation, or basilar invagination. Sella: No mass. Paranasal/mastoid sinuses: Imaged portions unremarkable. IMPRESSION: No acute intracranial abnormality. Minimal supratentorial white matter microvascular ischemic changes. Signed by: Dr. Destini Ortega M.D. on 01/21/2019 9:11 PM
--- NOTE | 2019-01-21 21:36 | Diagnostic Imaging Report ---
EXAMINATION: PA and lateral views of the chest. COMPARISON: None CLINICAL HISTORY: Altered mental status DISCUSSION: Lines/tubes: None. Lungs: The lungs are well inflated and clear. No pneumonia or pulmonary edema. Pleura: No pleural effusion or pneumothorax. Heart and mediastinum: The cardiomediastinal silhouette is normal. Bones and soft tissues: No acute bony abnormalities. IMPRESSION: No acute cardiopulmonary abnormalities. (Delay in report secondary to not populating on the radiology work list) Signed by: Dr. Jon Cruz M.D. on 01/21/2019 9:33 PM
[2019-01-21 21:44] VITALS: BP 126/68
== END 2019-01-21 21:53 | disposition home or self-care (01) ==
LOC: FSED 19:43
DX: R42 Dizziness and giddiness (principal); H81.13 Benign paroxysmal vertigo, bilateral
CPT/HCPCS: 70450; 71046; 80053; 85025; 87400; 93005; 99283; J8597

== ENCOUNTER 2019-08-18 19:04 | Emergency (ER) | payer OTHER ==
[~2019-08-18] VITALS: Ht 160 cm; Wt 73.9 kg
--- OUTSIDE RECORDS SUMMARY | 2019-08-18 19:08 | XMS REPORT ---
Author Author [facility] Address Unknown Phone Unavailable Care Team Providers Care Gm Video Name Role Phone SYLVIA HAN Unavailable Unavailable Problems This patient has no known problems. Allergies, Adverse Reactions, Alerts This patient has no known allergies or adverse reactions. Medications This patient has no known medications. Results Test Description Test Time Test Comments Text Results Atomic Results Result Comments CXR 2 VIEW - HOPD 2019-01-21 21:32:00 [place] [address] Patient Name: JAZMINE NEWMAN MR #: [id number] : 1950 Age/Sex: 68/F Req #: [id number] Adm Physician: Ordered by: SYLVIA HAN MD Report #: [id number] Location: [facility] Room/Bed: Procedure: [id number] HOPD/CXR 2 VIEW - HOPD Exam Date: Exam Time: REPORT STATUS: Signed EXAMINATION: PA and lateral views of the chest. COMPARISON: None CLINICAL HISTORY: Altered mental status DISCUSSION: Lines/tubes: None. Lungs: The lungs are well inflated and clear. No pneumonia or pulmonary edema. Pleura: No pleural effusion or pneumothorax. Heart and mediastinum: The cardiomediastinal silhouette is normal. Bones and soft tissues: No acute bony abnormalities. IMPRESSION: No acute cardiopulmonary abnormalities. (Delay in report secondary to not populating on the radiology work list) Signed by: Dr. Cristiane Pimentel M.D. on 01/21/2019 9:33 PM Dictated By: CRISTIANE PIMENTEL MD 32 Transcribed By: RAYMUNDO on 01/21/192132 COPY TO: SYLVIA HAN MD CT BRAIN WO-HOPD 2019-01-21 21:07:00 [place] [address] Patient Name: JAZMINE NEWMAN MR #: [id number] : 1950 Age/Sex: 68/F Req #: [id number] Adm Physician: Ordered by: SYLVIA HAN MD Report #: [id number] Location: [facility] Room/Bed: Procedure: [id number] HOPD/CT BRAIN -[facility] Exam Date: Exam Time: REPORT STATUS: Signed EXAMINATION: Head CT without contrast. HISTORY:Vertigo. COMPARISON:None. TECHNIQUE: Multidetector axial images were obtained from the foramen magnum to the vertex without contrast. The images were reconstructed using brain and bone algorithms. Thin section brain images were reformatted into coronal and sagittal planes. Dose modulation, iterative reconstruction, and/or weight based adjustment of the mA/kV was utilized to reduce the radia tion dose to as low as reasonably achievable. Intravenous contrast: None IMAGE QUALITY: Acceptable. FINDINGS: Skull/scalp: No lytic or blastic. lesions. No surgical changes. Parenchyma: Nonspecific few, scattered supratentorial white matter hypodensity are likely related to small vessel ischemic changes. No acute hemorrhage, mass or acute major vascular territorial infarct. Arteries: No density suggestive of thrombosis. Dural sinuses: No abnormal density suggestive of thrombosis. Ventricles: No hydrocephalus or displacement. Extra-axial spaces: No abnormal density. Brain volume: Normal for age. Craniocervical junction: No mass, Chiari malformation, or basilar invagination. Sella: No mass. Paranasal/mastoid sinuses: Imaged portions unremarkable. IMPRESSION: No acute intracranial abnormality. Minimal supratentorial white matter microvascular ischemic changes. Signed by: Dr. Destini balbuena M.D. on 01/21/2019 9:11 PM Dictated By: DESTINI SANTOS MD 10 Transcribed By: RAYMUNDO on 01/21/192110 COPY TO: SYLVIA HAN MD
[2019-08-18] MEDS ORDERED: KETOROLAC TROMETHAMINE 30 MG/ML VIAL IV ONE (19:58)
[2019-08-18] MEDS ORDERED: KETOROLAC TROMETHAMINE 30 MG/ML VIAL ONE (20:29)
--- NOTE | 2019-08-18 21:31 | Diagnostic Imaging Report ---
History: Left-sided neck pain and left upper extremity pain. Comparison studies: None Technique: Axial images were obtained through the cervical region.. Coronal and sagittal images reconstructed from the axial data. Dose modulation, iterative reconstruction, and/or weight based adjustment of the mA/kV was utilized to reduce the radiation dose to as low as reasonably achievable. Intravenous contrast: None Findings: Fractures: None. Soft tissue injuries: None. Atlantoaxial articulation: Intact. Alignment: Loss of normal cervical lordosis is either positional or due to muscle spasm. No scoliosis. Cervicomedullary junction: No abnormalities. The foramen magnum is patent. Soft tissues: No abnormalities. Vertebrae: No fractures, infection or neoplasm. Degenerative changes: C3-C4: Mild left foraminal stenosis due to facet arthrosis. C4-C5: Mild left foraminal stenosis due to facet and uncovertebral arthrosis. Posterior disc osteophyte complex results in mild canal stenosis. C5-C6: Mild right and moderate left foraminal stenosis due to facet and uncovertebral arthrosis. C6-C7: Mild right and severe left foraminal stenosis due to uncovertebral arthrosis.. IMPRESSION: 1. No acute cervical spine fracture or dislocation. Loss of normal cervical lordosis is either positional or due to muscle spasm. 2. Ligament, spinal cord and or vascular abnormalities cannot be excluded on the basis of this examination. 3. Multilevel cervical spondylosis, results in mild canal stenosis at C4-C5. Multilevel foraminal stenosis, particularly mild left at C3-C4, C4-C5, mild right and moderate left at C5-C6 and mild right and severe left at C6-C7. Signed by: Dr. Destini Ortega M.D. on 08/18/2019 9:28 PM
--- NOTE | 2019-08-18 22:04 | Diagnostic Imaging Report ---
EXAMINATION: CXR 2 VIEW - HOPD INDICATION: Upper back pain, left shoulder pain COMPARISON: Chest radiograph 01/21/2019 FINDINGS: TUBES and LINES: None. LUNGS: Lungs are well inflated. Lungs are clear. There is no evidence of pneumonia or pulmonary edema. Mild obscuration of the mid left hemidiaphragm and distal left cardiac border is likely due to pericardial fat. PLEURA: No pleural effusion or pneumothorax. HEART AND MEDIASTINUM: The cardiomediastinal silhouette is unremarkable. Aortic arch calcifications. BONES AND SOFT TISSUES: No acute osseous lesion. Soft tissues are unremarkable. Mild degenerative changes in the spine. UPPER ABDOMEN: No free air under the diaphragm. IMPRESSION: No acute thoracic radiographic abnormality. Signed by: Sae Starks DO on 08/18/2019 10:00 PM
--- NOTE | 2019-08-18 22:14 | Diagnostic Imaging Report ---
X-ray left hip 2 views HISTORY: Pain. COMPARISON: None available. FINDINGS: Bones: No acute displaced fracture. Osseous alignment is within normal limits. Joints: Subtle subchondral sclerosis left about the acetabulum with subtle joint space loss at the superior aspect. No dislocations. Soft tissues: Tiny calcifications likely within the left gluteal subcutaneous adipose consistent with tiny fat granulomas. IMPRESSION: No acute radiographic abnormality. Minimal degenerative changes in the left hip. Signed by: Sae Starks DO on 08/18/2019 10:11 PM
--- NOTE | 2019-08-18 22:24 | Diagnostic Imaging Report ---
X-RAY THORACIC SPINE - 3 VIEWS X-RAY LUMBAR SPINE - 3 VIEWS HISTORY: Pain. COMPARISON: Cervical spine CT 08/18/2019 DISCUSSION: Thoracic spine: Multilevel disc osteophytes in the cervical spine. Decreased disc height at C5-C6 with posterior disc osteophytes. Partially visualized sclerotic facet arthropathy in the mid to lower cervical spine. The included intrathoracic structures are unremarkable. Normal kyphosis. The disc heights, vertebral bodies, and alignment are normal. No obvious displaced rib fractures. The facets are unremarkable. Lumbar spine: Some of the osseous structures are partially obscured by stool and bowel gas. Transitional anatomy in the lower lumbar spine, with partial lumbarization of S1 vertebral body with pseudoarthrosis of right S1 transverse process with right sacral ala, where there is degenerative changes. Suspect low bone mineral density. Minimal decreased vertebral body height at the right anterior aspect of L4 vertebral body where there is sclerosis and anterior osteophytes. The alignment of the spine is within normal limits. No displaced fracture or compression deformity is identified. Disc Spaces: The disc spaces are well maintained. Mild decreased disc height at L2-L3 where there are disc osteophytes. Facets: Sclerotic facet arthropathy at the lower lumbar spine. Calcifications of the abdominal aorta. IMPRESSION: 1. No acute radiographic osseous abnormality in the thoracic or lumbar spine. 2. Degenerative changes throughout the spine, worst in the cervical spine, and in the lower lumbar spine. 3. Minimal decreased vertebral body height at right anterior aspect of L4 could be due is favored to be due to degenerative changes, although a remote minimal compression injury is possible. 4. Transitional anatomy in the lower lumbar spine, with partial lumbarization of S1 vertebral body, with pseudoarthrosis of right S1 transverse process with right sacral ala, where there is degenerative changes. 5. Suspect low bone mineral density. Signed by: Sae Starks DO on 08/18/2019 10:20 PM
--- NOTE | 2019-08-18 22:25 | Diagnostic Imaging Report ---
EXAM: Left Lower Extremity Venous Duplex Ultrasound INDICATION: Left leg pain COMPARISON: None TECHNIQUE: Velazco scale, color Doppler and spectral waveform analysis of the left lower extremity deep venous system was performed. FINDINGS: Common Femoral: Fully compressible with normal spontaneous waveforms. Proximal Greater Saphenous: Fully compressible. Femoral: Fully compressible with normal spontaneous waveforms. Normal response to augmentation. Proximal Deep Femoral: Not evaluated. Popliteal: Fully compressible with normal spontaneous waveforms. IMPRESSION: No evidence of deep venous thrombosis above the left calf. Signed by: Sae Starks DO on 08/18/2019 10:22 PM
[2019-08-18] MEDS ORDERED: TRAMADOL HCL 50 MG TAB PO STA (22:57)
[2019-08-18] MEDS ORDERED: TRAMADOL HCL 50 MG TAB ONE (23:02)
== END 2019-08-18 23:03 | disposition home or self-care (01) ==
LOC: FSED 19:04
DX: M54.12 Radiculopathy, cervical region (principal); M48.02 Spinal stenosis, cervical region; M47.814 Spondylosis without myelopathy or radiculopathy, thoracic region; M54.5 Low back pain; M47.816 Spondylosis without myelopathy or radiculopathy, lumbar region; G89.29 Other chronic pain
CPT/HCPCS: 71046; 72070; 72100; 72125; 73502; 93005; 93971; 99284; J1885

== ENCOUNTER 2019-12-19 10:04 | Inpatient (IN) | payer OTHER, MEDICARE ==
[~2019-12-19] VITALS: Ht 157.5 cm; Wt 73.0 kg
[2019-12-19] MEDS ORDERED: TAMIFLU75 MG PO (10:31)
[2019-12-19] MEDS ORDERED: TESSALON PERLE100 MG (10:31)
[2019-12-19] MEDS ORDERED: ALBUTEROL/IPRATROPIUM 3 ML NEB ONE (10:43)
[2019-12-19] MEDS ORDERED: ACETAMINOPHEN 325 MG TAB ONE (10:43)
[2019-12-19] MEDS ORDERED: DEXAMETHASONE SOD PHOS 10 MG/1 ML VIAL IM ONE (10:45)
[2019-12-19] MEDS ORDERED: ACETAMINOPHEN 325 MG TAB PO ONE (10:45)
[2019-12-19] MEDS ORDERED: ALBUTEROL/IPRATROPIUM 3 ML NEB NEB ONE (10:45)
[2019-12-19] MEDS ORDERED: SODIUM CHLORIDE 0.9% 1000ML 1,000 ML IV STA (11:09)
[2019-12-19] MEDS ORDERED: CEFTRIAXONE SOD 1 GM VIAL IV ONE (11:15)
--- NOTE | 2019-12-19 11:17 | Diagnostic Imaging Report ---
EXAMINATION: CXR 2 VIEW - HOPD INDICATION: Cough COMPARISON: Chest radiograph of 10/06/2019 FINDINGS: LINES/TUBES:None LUNGS:The lungs are well-inflated. New mild patchy opacities at the right midlung along the minor fissure. Mild biapical pleural parenchymal thickening/scarring. PLEURA:No pleural effusion or pneumothorax. MEDIASTINUM:The cardiomediastinal silhouette appears unchanged in size and shape. Atherosclerotic calcifications of the thoracic aorta. BONES/SOFT TISSUES:No acute osseous injury. ABDOMEN:No free air under the diaphragm. IMPRESSION: New mild patchy opacities at the right midlung, possibly representing aspiration and/or pneumonia in the proper clinical setting. RECOMMENDATIONS: Follow-up PA and lateral chest radiograph in 6-8 weeks following treatment to assess for resolution. Signed by: Yves Brady MD on 12/19/2019 11:15 AM
[2019-12-19] MEDS ORDERED: AZITHROMYCIN 500MG/SOD CHL 0.9% 250ML BAG IV SCH (11:30)
[2019-12-19] MEDS ORDERED: CEFTRIAXONE SOD 1 GRAM/0.9% SOD CHL 50ML BAG IV SCH (11:30)
--- NOTE | 2019-12-19 11:36 | NUR ---
green sheet on chart per protocol.
[2019-12-19] MEDS: SODIUM CHLORIDE 0.9% 1000ML 1,000 ML IV SCH (11:38)
[2019-12-19] MEDS ORDERED: ALBUTEROL SULF 0.083% NEB SOLN 3 ML NEB NEB SCH ×2 (12:00→19:00)
[2019-12-19] MEDS ORDERED: IPRATROPIUM BROMIDE 0.02% 2.5 ML NEB NEB SCH ×2 (12:00→19:00)
[2019-12-19] MEDS ORDERED: POTASSIUM CHLORIDE 20 MEQ TAB CR PO STA (12:06)
[2019-12-19 13:40] VITALS: BP 140/64
--- NOTE | 2019-12-19 13:51 | NUR ---
Recvd patient from [facility], AAOx3, Denies any pain, not in any distress, assisted her to bed, call light in reach, keep monitoring
[2019-12-19 15:21] VITALS: BP 140/64
[2019-12-19 16:17] VITALS: BP 125/62
[2019-12-19] MEDS ORDERED: GUAIFENESIN 600MG/DEXTROMETHORPHAN 30MG TABSR PO PRN (16:45)
[2019-12-19] MEDS: ENOXAPARIN SOD INJ 40 MG/0.4 ML SYR SC SCH (17:27)
[2019-12-19] MEDS ORDERED: HYDRALAZINE HCL 20 MG/ML VIAL IV PRN (17:30)
[2019-12-19] MEDS ORDERED: ALBUTEROL/IPRATROPIUM 3 ML NEB NEB PRN (17:30)
[2019-12-19] MEDS ORDERED: ACETAMINOPHEN 325 MG TAB PO PRN (17:30)
[2019-12-19] MEDS ORDERED: MELATONIN 5 MG TABLET PO PRN (17:30)
[2019-12-19] MEDS ORDERED: ONDANSETRON HCL INJ 2MG/ML 2ML 2 MG/ML VIAL IV PRN (17:30)
[2019-12-19] MEDS: GUAIFENESIN 600MG/DEXTROMETHORPHAN 30MG TABSR PO SCH ×2 (17:41→23:19)
[2019-12-19] MEDS ORDERED: POTASSIUM CHLORIDE 20 MEQ TAB CR PO NR (17:45)
[2019-12-19 18:16] LABS: BASOPHILS % 0.4 % (0.0-1.0); HEMATOCRIT 35.9 % (34.2-44.1); HEMOGLOBIN 12.2 g/dL (12.0-16.0); LYMPHOCYTES # (AUTO) 0.3 (1.0-3.2); LYMPHOCYTES % 10.7 % (18.0-39.1); MEAN CORPUSCULAR HEMOGLOBIN 28.4 pg (28-32); MEAN CORPUSCULAR VOLUME 83.7 fL (81-99); MONOCYTES # (AUTO) 0.1 (0.2-0.8); MONOCYTES % 2.3 % (4.4-11.3); NEUTROPHILS # (AUTO) 2.2 (2.1-6.9); NEUTROPHILS % 85.5 % (38.7-80.0); PLATELET COUNT 149 x10e3/uL (140-360); RED BLOOD COUNT 4.29 x10e6/uL (3.6-5.1)
[2019-12-19] MEDS ORDERED: VALSARTAN-HCTZ1 EAC3 PO (18:26)
[2019-12-19] MEDS ORDERED: ZETIA10 MG PO (18:26)
[2019-12-19] MEDS ORDERED: AMLODIPINE BESYL5 MG PO (18:26)
[2019-12-19] MEDS ORDERED: ALENDRONATE SOD70 MG PO (18:26)
[2019-12-19 18:39] LABS: ANION GAP 16.1 mmol/L (8-16); CALCIUM 8.3 mg/dL (8.4-10.2); CREATININE, SERUM 0.96 mg/dL (0.57-1.11); MAGNESIUM 1.7 MG/DL (1.3-2.1); POTASSIUM 3.1 mmol/L (3.5-5.1)
[2019-12-19 18:48] LABS: CREATINE KINASE 1142 IU/L (29-168)
[2019-12-19 18:54] LABS: INFLUENZAE A&B ANTIGEN (RAPID) NEGATIVE (NEGATIVE)
[2019-12-19 18:58] LABS: THYROID STIMULATING HORMONE 0.57 uIU/mL (0.350-4.940)
[2019-12-19] MEDS: ALBUTEROL/IPRATROPIUM 3 ML NEB NEB SCH (19:00)
[2019-12-19 19:01] LABS: STREPTOCOCCUS GRP A ANTIGEN NEGATIVE (NEGATIVE)
[2019-12-19 20:00] VITALS: BP 131/57
--- NOTE | 2019-12-19 20:01 | NUR ---
Received bedside report from day nurse. Patient resting in bed with both eyes closed, no s/s of distress at this time. All safety measures in place. Will continue to monitor.
[2019-12-19 20:59] LABS: BAND NEUTROPHILS % (MANUAL) 3 %; HYPOCHROMASIA SLIGHT; LYMPHOCYTES % (MANUAL) 10 % (19-48); MONOCYTES % (MANUAL) 2 % (3.4-9.0); MYELOCYTES % (MANUAL) 1 % (0-0); NEUTROPHILS % (MANUAL) 84 % (40-74); PLATELET ESTIMATE SLIGHTLY DECREASED; PLATELET MORPHOLOGY COMMENT NORMAL; RBC MORPHOLOGY COMMENT NORMAL
[2019-12-19 21:27] VITALS: BP 131/57
[2019-12-20] VITALS (8 sets, daily range): BP systolic 119–145; BP diastolic 61–76
[2019-12-20] MEDS: ALBUTEROL/IPRATROPIUM 3 ML NEB NEB SCH ×4 (02:32→19:20)
[2019-12-20 03:36] LABS: BASOPHILS % 0.4 % (0.0-1.0); HEMATOCRIT 33.8 % (34.2-44.1); HEMOGLOBIN 11.3 g/dL (12.0-16.0); LYMPHOCYTES # (AUTO) 0.4 (1.0-3.2); LYMPHOCYTES % 18.3 % (18.0-39.1); MEAN CORPUSCULAR HEMOGLOBIN 28.1 pg (28-32); MEAN CORPUSCULAR HGB CONC 33.4 g/dL (31-35); MEAN CORPUSCULAR VOLUME 84.1 fL (81-99); MONOCYTES # (AUTO) 0.1 (0.2-0.8); MONOCYTES % 6.1 % (4.4-11.3); NEUTROPHILS # (AUTO) 1.7 (2.1-6.9); NEUTROPHILS % 74.3 % (38.7-80.0); PLATELET COUNT 130 x10e3/uL (140-360); RED BLOOD COUNT 4.02 x10e6/uL (3.6-5.1); RED CELL DISTRIBUTION WIDTH 13.1 % (11.7-14.4)
[2019-12-20 03:49] LABS: ANION GAP 11.3 mmol/L (8-16); BLOOD UREA NITROGEN 11 mg/dL (7-26); BUN/CREATININE RATIO 14 (6-25); CALCIUM 8.4 mg/dL (8.4-10.2); CARBON DIOXIDE 22 mmol/L (22-29); CHLORIDE 110 mmol/L (98-107); CREATININE, SERUM 0.79 mg/dL (0.57-1.11); EST GLOMERULAR FILTRATION RATE > 60 ML/MIN (60-); GLUCOSE 155 mg/dL (74-118); POTASSIUM 3.3 mmol/L (3.5-5.1); SODIUM 140 mmol/L (136-145)
[2019-12-20 04:17] LABS: CREATINE KINASE MB 5.7 ng/mL (0-5.0)
[2019-12-20] MEDS: SODIUM CHLORIDE 0.9% 1000ML 1,000 ML IV SCH (05:12)
[2019-12-20] MEDS: FAMOTIDINE 20 MG TAB PO SCH ×2 (06:28→16:30)
[2019-12-20] MEDS: GUAIFENESIN 600MG/DEXTROMETHORPHAN 30MG TABSR PO SCH (06:28)
--- NOTE | 2019-12-20 07:09 | NUR ---
Bedside report given to day nurse. Patient awake and resting in bed, no s/s of distress or c/o pain at this time. All safety measures in place.
[2019-12-20] MEDS ORDERED: ZOLPIDEM TARTRATE 5 MG TAB PO PRN (08:00)
[2019-12-20] MEDS: VALSARTAN 160 MG TAB PO SCH (09:00)
[2019-12-20] MEDS: AMLODIPINE BESYLATE 5 MG TAB PO SCH (09:00)
[2019-12-20] MEDS: FLUTICASONE PROPIONATE NASAL SPRAY NS SCH ×2 (09:00→17:00)
[2019-12-20] MEDS ORDERED: METHYLPREDNISOLONE SOD SUCC 125 MG/2ML VIAL IV NR (09:00)
[2019-12-20] MEDS: GUAIFENESIN/CODEINE 10 ML CUP PO PRN ×3 (09:10→21:40)
[2019-12-20] MEDS ORDERED: POTASSIUM CHLORIDE 20 MEQ TAB CR PO NR (10:00)
[2019-12-20] MEDS: KCL 20MEQ/.9 SOD CHL 1,000 ML IV SCH (10:30)
[2019-12-20] MEDS: CEFTRIAXONE SOD 1 GM/NS 50 ML 50 ML IV SCH (10:41)
[2019-12-20] MEDS: EZETIMIBE 10 MG TAB PO SCH (10:41)
--- NOTE | 2019-12-20 11:45 | Consultation ---
DATE OF CONSULTATION: Pulmonary Critical Care Consultation CHIEF COMPLAINT: Coughing and congestion. HISTORY OF PRESENT ILLNESS: The patient is a 69-year-old woman. She has no prior history of asthma or COPD. She denies any prior cardiac history. She notes worsening congestion and cough over several days. She had a low-grade fever of 100.5 at home. She also has some nasal congestion and postnasal drainage. She denies any heartburn or acid reflux. PAST SURGICAL HISTORY: History of eyelid surgery. PAST MEDICAL HISTORY: 1. Hypertension. 2. No prior cardiac disease. 3. No history of asthma or COPD. SOCIAL HISTORY: The patient quit smoking many years ago, more than two decades ago. She is not an active drinker. FAMILY HISTORY: Family history is noncontributory. ALLERGIES: THERE ARE NO KNOWN DRUG ALLERGIES. REVIEW OF SYSTEMS: The patient is afebrile. The patient does not complain of headache. There is some sinus congestion and nasal drainage. She has some throat irritation. She has a mild cough. She is not complaining of any chest pain. She has some congestion. She has not have abdominal pain. She denies leg edema. PHYSICAL EXAMINATION: VITAL SIGNS: The patient is afebrile. The blood pressure is 135/62. Saturation is 98% on 2 L. HEENT: Shows no facial swelling or erythema. The oropharynx is normal. LYMPHATIC: Shows no submandibular, cervical, or supraclavicular adenopathy. CARDIAC: Reveals regular rate and rhythm with normal S1 and S2. There are no murmurs or rubs. LUNGS: Auscultation of lungs reveals rhonchorous breath sounds bilaterally. There is no wheezing. ABDOMEN: Soft and nontender. There is no rebound or guarding. EXTREMITIES: Shows no leg edema or calf tenderness. There is no cyanosis or clubbing. SKIN: Shows no rashes. NEUROLOGICAL: Shows no focal abnormalities. LABORATORY DATA: White blood cell count is 2.3 and the hemoglobin is 11.3. The platelet count is 130. The BUN to creatinine ratio is normal. The potassium is 3.3. The troponin I is negative. IMPRESSION: 1. Community-acquired pneumonia. 2. Leukopenia and thrombocytopenia of unclear etiology. 3. Hypertension. 4. Rhinosinusitis. PLAN: 1. Continue current antibiotics. 2. Solu-Medrol x1 dose. 3. Nasal sprays and cough syrup. 4. Nasal swab for influenza. 5. Hematology consultation for pancytopenia. MD VIRIDIANA Montano/ELLEN /[id number]
[2019-12-20] MEDS: AZITHROMYCIN 500MG/NS 250 ML 250 ML IV SCH (12:00)
[2019-12-20] MEDS: OXYMETAZOLINE HCL 0.05% NAS 1 SPRAY BTL SCH ×2 (12:28→21:40)
[2019-12-20] MEDS: ENOXAPARIN SOD INJ 40 MG/0.4 ML SYR SC SCH (17:00)
--- NOTE | 2019-12-20 18:03 | NUR ---
PT IN BED RESTING NO DISTRESS NOTED,DENIES PAIN,COUGHING MEDICATED.
--- NOTE | 2019-12-20 19:02 | NUR ---
Received bedside report from day nurse. Patient awake and resting in bed, no s/s of distress or c/o pain at this time. All safety measures in place. Will continue to monitor.
[2019-12-20] MEDS: ZOLPIDEM TARTRATE 5 MG TAB PO PRN (21:40)
[2019-12-21] VITALS: BP_SYST 120; BP_SYST 128; BP_DIAS 63; BP_DIAS 66
[2019-12-21] MEDS: ALBUTEROL/IPRATROPIUM 3 ML NEB NEB SCH ×4 (01:05→19:38)
--- NOTE | 2019-12-21 03:30 | NUR ---
Labs drawn as ordered and sent to lab.
[2019-12-21] MEDS: GUAIFENESIN/CODEINE 10 ML CUP PO PRN ×4 (03:32→20:45)
[2019-12-21 03:58] LABS: HEMATOCRIT 30.3 % (34.2-44.1); LYMPHOCYTES # (AUTO) 0.3 (1.0-3.2); LYMPHOCYTES % 8.5 % (18.0-39.1); MEAN CORPUSCULAR HEMOGLOBIN 27.9 pg (28-32); MEAN CORPUSCULAR VOLUME 84.6 fL (81-99); MONOCYTES # (AUTO) 0.1 (0.2-0.8); MONOCYTES % 4.3 % (4.4-11.3); NEUTROPHILS # (AUTO) 2.8 (2.1-6.9); NEUTROPHILS % 86.6 % (38.7-80.0); PLATELET COUNT 155 x10e3/uL (140-360); RED BLOOD COUNT 3.58 x10e6/uL (3.6-5.1); RED CELL DISTRIBUTION WIDTH 13.4 % (11.7-14.4)
[2019-12-21 04:21] LABS: ALANINE AMINOTRANSFERASE 16 IU/L (0-55); ALBUMIN 3.1 g/dL (3.5-5.0); ALBUMIN/GLOBULIN RATIO 1.1 (0.8-2.0); ALKALINE PHOSPHATASE 107 IU/L (40-150); ANION GAP 11.2 mmol/L (8-16); BLOOD UREA NITROGEN 11 mg/dL (7-26); BUN/CREATININE RATIO 14 (6-25); CALCIUM 8.6 mg/dL (8.4-10.2); CARBON DIOXIDE 22 mmol/L (22-29); CHLORIDE 113 mmol/L (98-107); CREATININE, SERUM 0.79 mg/dL (0.57-1.11); EST GLOMERULAR FILTRATION RATE > 60 ML/MIN (60-); GLUCOSE 143 mg/dL (74-118); POTASSIUM 3.2 mmol/L (3.5-5.1); SODIUM 143 mmol/L (136-145)
[2019-12-21] MEDS: FAMOTIDINE 20 MG TAB PO SCH ×2 (06:34→16:30)
[2019-12-21] MEDS: KCL 20MEQ/.9 SOD CHL 1,000 ML IV SCH (06:34)
--- NOTE | 2019-12-21 06:52 | NUR ---
Bedside report given to day nurse. Patient awake resting in bed, no s/s of distress at this time. All safety measures in place.
[2019-12-21 07:30] VITALS: BP 130/60
--- NOTE | 2019-12-21 07:30 | NUR ---
PT UP IN BED ,SOB NOTED,O2 2L NC IN PLACE.
[2019-12-21 07:39] VITALS: BP 131/60
[2019-12-21] MEDS: NEBIVOLOL 10 MG TAB PO SCH (08:51)
[2019-12-21] MEDS: DULOXETINE HCL 30 MG DELAYED RELEASE PO SCH (08:51)
[2019-12-21] MEDS: AMLODIPINE BESYLATE 5 MG TAB PO SCH (08:52)
[2019-12-21] MEDS: EZETIMIBE 10 MG TAB PO SCH (08:52)
[2019-12-21] MEDS: VALSARTAN 160 MG TAB PO SCH (08:52)
--- NOTE | 2019-12-21 09:21 | NUR ---
SENT TO R1 FOR LOC DETERMINATION
[2019-12-21] MEDS ORDERED: POTASSIUM CHLORIDE 20 MEQ TAB CR PO NR (10:00)
[2019-12-21] MEDS ORDERED: ACETAMINOPHEN/CODEINE 300MG - 30MG TAB PO PRN (10:15)
--- NOTE | 2019-12-21 10:30 | NUR ---
DR MARTIN AND NICHOLE HERE ORDERS WRITTEN,
[2019-12-21] MEDS: FLUTICASONE PROPIONATE NASAL SPRAY NS SCH ×2 (10:38→17:00)
[2019-12-21] MEDS: OXYMETAZOLINE HCL 0.05% NAS 1 SPRAY BTL SCH ×2 (10:38→20:33)
[2019-12-21] MEDS: CEFTRIAXONE SOD 1 GM/NS 50 ML 50 ML IV SCH (10:59)
[2019-12-21] MEDS: TIZANIDINE HCL 4 MG TAB PO PRN ×2 (11:25→20:44)
[2019-12-21] MEDS: AZITHROMYCIN 500MG/NS 250 ML 250 ML IV SCH (11:25)
[2019-12-21] MEDS ORDERED: METHYLPREDNISOLONE SOD SUCC 125 MG/2ML VIAL IV NR (11:30)
[2019-12-21 11:54] VITALS: BP 118/57
--- NOTE | 2019-12-21 11:59 | Progress Note ---
DATE: SUBJECTIVE: The patient has more wheezing this morning. She has increased congestion and cough. She did not have fever overnight. PHYSICAL EXAMINATION: VITAL SIGNS: The patient is afebrile. The vital signs are stable. Saturation is 94% on 2 L. HEENT: Shows no facial swelling or erythema. CARDIAC: Reveals regular rate and rhythm with normal S1 and S2. LUNGS: Auscultation of lungs reveals rhonchorous breath sounds bilaterally. There is some wheezing. ABDOMEN: Soft and nontender. There is no rebound or guarding. EXTREMITIES: Show no leg edema or calf tenderness. LABORATORY DATA: Potassium is 3.2 and the other electrolytes are within normal limits. The white blood cell count is 3.2 and hemoglobin is 10. The platelet count is 155. IMPRESSION: 1. Community-acquired pneumonia. 2. Leukopenia and thrombocytopenia, unclear etiology. 3. Hypertension. 4. Rhinosinusitis. PLAN: 1. The patient will have a BMP and echocardiogram today to rule out any component of heart failure. 2. The patient will continue antibiotics. 3. The patient will have a CT scan of the chest with IV contrast. 4. Continue to monitor blood counts. If the white blood cell count, platelet count does not increase, Hematology consultation will be required. MD VIRIDIANA Montano/ELLEN /[id number]
--- NOTE | 2019-12-21 12:00 | NUR ---
TRANSPORTED TO [facility] VIA W/C.
--- NOTE | 2019-12-21 12:45 | NUR ---
RETURNNED TO ROOM
[2019-12-21] MEDS ORDERED: FUROSEMIDE INJ 10 MG/ML 2 ML VIAL IV NR (13:15)
--- NOTE | 2019-12-21 13:29 | Diagnostic Imaging Report ---
EXAMINATION: CT scan of the chest with contrast. TECHNIQUE: Helical CT images of the chest were performed from the lung apices to the level of the adrenal glands after the intravenous administration of 100 cc of Omnipaque 300. Coronal and sagittal reformatted images were obtained.Dose modulation, iterative reconstruction, and/or weight based adjustment of the mA/kV was utilized to reduce the radiation dose to as low as reasonably achievable. COMPARISON: None. CLINICAL HISTORY:Community-acquired pneumonia DISCUSSION: LINES/TUBES: None. LUNGS AND AIRWAYS: Interstitial thickening and groundglass and nodular change throughout the lungs, most prominent superior aspect of the lower lobes. PLEURA: Small bilateral pleural effusions. HEART AND MEDIASTINUM: The thyroid gland is normal. The heart and pericardium are within normal limits. LYMPH NODES: No mediastinal, hilar or axillary lymphadenopathy. ABDOMEN: Limited contrast-enhanced views of the upper abdomen show no abnormality within the visualized liver, spleen, pancreas, or kidneys. The adrenal glands are normal. BONES AND SOFT TISSUES: No acute bony abnormalities. IMPRESSION: Multifocal pneumonia. Signed by: Dr. Jon Cruz M.D. on 12/21/2019 1:26 PM
[2019-12-21 15:53] VITALS: BP 131/63
[2019-12-21] MEDS: ENOXAPARIN SOD INJ 40 MG/0.4 ML SYR SC SCH (17:00)
--- NOTE | 2019-12-21 17:55 | NUR ---
PT UP IN BED ,O2 2L NC IN PLACE DENIES PAIN,NO SOB NOTD.
--- NOTE | 2019-12-21 19:00 | NUR ---
BEDSIDE REPORT TAKEN, NO DISTRESS NOTED, CALL LIGHT IN REACH, VS WNL
[2019-12-21] MEDS ORDERED: SODIUM CHLORIDE 0.9% 50ML 50 ML ONE (19:11)
[2019-12-21] MEDS ORDERED: IOPAMIDOL 370 MG/ML 200 ML INFUS..BTL INJ ONE (19:12)
[2019-12-21 20:00] VITALS: BP 131/75
[2019-12-21] MEDS: ZOLPIDEM TARTRATE 5 MG TAB PO PRN (23:29)
[2019-12-22] VITALS (9 sets, daily range): BP systolic 114–139; BP diastolic 56–66
--- NOTE | 2019-12-22 | NUR ---
pt awake easily, sleeping pills given, no distress noted, call light in reach, will continue to monitor pt
[2019-12-22] MEDS: ALBUTEROL/IPRATROPIUM 3 ML NEB NEB SCH ×4 (00:40→19:48)
--- NOTE | 2019-12-22 05:20 | NUR ---
pt sleeping, easily awaken, vs wnl, no distress noted, call light in reach, will continue to monitor pt
[2019-12-22 05:50] LABS: BASOPHILS % 0.3 % (0.0-1.0); HEMATOCRIT 33.2 % (34.2-44.1); HEMOGLOBIN 10.7 g/dL (12.0-16.0); LYMPHOCYTES # (AUTO) 0.4 (1.0-3.2); LYMPHOCYTES % 10.2 % (18.0-39.1); MEAN CORPUSCULAR HEMOGLOBIN 27.6 pg (28-32); MEAN CORPUSCULAR HGB CONC 32.2 g/dL (31-35); MEAN CORPUSCULAR VOLUME 85.8 fL (81-99); MONOCYTES # (AUTO) 0.2 (0.2-0.8); MONOCYTES % 4.9 % (4.4-11.3); NEUTROPHILS % 83.2 % (38.7-80.0); PLATELET COUNT 158 x10e3/uL (140-360); RED BLOOD COUNT 3.87 x10e6/uL (3.6-5.1); RED CELL DISTRIBUTION WIDTH 13.3 % (11.7-14.4)
--- NOTE | 2019-12-22 06:54 | NUR ---
Received bedside shift report from off going nurse. Patient is resting in bed. No acute distress noted. Call light within reach. Bed in the lowest position.
[2019-12-22 07:25] LABS: ALANINE AMINOTRANSFERASE 18 IU/L (0-55); ALKALINE PHOSPHATASE 106 IU/L (40-150); ANION GAP 11.5 mmol/L (8-16); BLOOD UREA NITROGEN 11 mg/dL (7-26); BUN/CREATININE RATIO 15 (6-25); CALCIUM 8.6 mg/dL (8.4-10.2); CARBON DIOXIDE 27 mmol/L (22-29); CHLORIDE 105 mmol/L (98-107); CREATININE, SERUM 0.75 mg/dL (0.57-1.11); EST GLOMERULAR FILTRATION RATE > 60 ML/MIN (60-); GLUCOSE 97 mg/dL (74-118); POTASSIUM 3.5 mmol/L (3.5-5.1); SODIUM 140 mmol/L (136-145)
[2019-12-22] MEDS: OXYMETAZOLINE HCL 0.05% NAS 1 SPRAY BTL SCH (08:35)
[2019-12-22] MEDS: FLUTICASONE PROPIONATE NASAL SPRAY NS SCH ×2 (08:35→17:00)
[2019-12-22] MEDS: DULOXETINE HCL 30 MG DELAYED RELEASE PO SCH (08:37)
[2019-12-22] MEDS: VALSARTAN 160 MG TAB PO SCH (08:37)
[2019-12-22] MEDS: NEBIVOLOL 10 MG TAB PO SCH (08:37)
[2019-12-22] MEDS: EZETIMIBE 10 MG TAB PO SCH (08:37)
[2019-12-22] MEDS: AMLODIPINE BESYLATE 5 MG TAB PO SCH (08:37)
[2019-12-22] MEDS: FAMOTIDINE 20 MG TAB PO SCH ×2 (08:37→17:00)
[2019-12-22] MEDS: GUAIFENESIN/CODEINE 10 ML CUP PO PRN ×2 (08:43→14:14)
[2019-12-22] MEDS ORDERED: ONDANSETRON HCL 4 MG ORAL DISINTEGRATING TAB PO PRN (09:15)
--- NOTE | 2019-12-22 09:48 | Progress Note ---
DATE: SUBJECTIVE: The patient has some improvement, but still has dyspnea and noisy breathing. She was coughing yesterday and there is some pain in her lower back. PHYSICAL EXAMINATION: VITAL SIGNS: The patient is afebrile. The blood pressure is 114/64. The saturation is 94% on 3 liters. The pulse is 87. HEENT: Shows no facial swelling or erythema. CARDIAC: Reveals a regular rate and rhythm with normal S1 and S2. RESPIRATORY: Auscultation of lungs reveal a few wheezes bilaterally. There are some rhonchi. ABDOMEN: Soft and nontender. There is no rebound or guarding. EXTREMITIES: Show no leg edema or calf tenderness. There is no cyanosis or clubbing. SKIN: Shows no rashes. NEUROLOGICAL: Shows no focal abnormalities. LABORATORY DATA: White blood cell count is 3.64, hemoglobin is 10.7, and the platelet count is 158. RADIOGRAPHIC DATA: CT scan of the chest shows multifocal pneumonia. IMPRESSION: 1. Community-acquired pneumonia with sepsis, present on admission. 2. Leukopenia and thrombocytopenia that is improving. 3. Lumbar spine pain. 4. Hypertension. 5. Rhinosinusitis. PLAN: 1. Await results of echocardiogram. 2. Continue current antibiotics. 3. Plain films of the lumbosacral spine. 4. Continue to monitor blood counts. Aries Jung MD [facility] /[id number]
[2019-12-22] MEDS: CEFTRIAXONE SOD 1 GM/NS 50 ML 50 ML IV SCH (11:00)
[2019-12-22] MEDS: AZITHROMYCIN 500MG/NS 250 ML 250 ML IV SCH (11:55)
--- NOTE | 2019-12-22 15:32 | Diagnostic Imaging Report ---
Lumbar spine, 3 views Clinical indication: Lumbar spine pain Comparison: 08/18/2019. Findings: The lumbar vertebral body heights are well-maintained. There is minimal decreased height of the anterior aspect of the L4 vertebral body which is unchanged when compared to radiographs dated 08/18/2019. The disc spaces are preserved. There is no evidence of acute fracture or subluxation. There are hypertrophic degenerative facet changes at L5-S1. No evidence of spondylolisthesis. The abdominal aorta demonstrates atherosclerotic calcifications. Impression: No radiographic evidence of acute osseous abnormalities of the lumbar spine. Signed by: Navi Sharp MD on 12/22/2019 3:29 PM
[2019-12-22] MEDS: ENOXAPARIN SOD INJ 40 MG/0.4 ML SYR SC SCH (17:00)
--- NOTE | 2019-12-22 19:10 | NUR ---
Patient visited in room during nursing rounds. Patient alert and oriented x3. No distress or discomfort noted. On 3L NC and gets Neb treatment q6h. Pt ambulatory in room prn. Call manjarrez within reach. Will monitor pt closely.
--- NOTE | 2019-12-22 19:21 | NUR ---
Bedside shift report given to oncoming nurse. Patient is resting in bed, no s/s of distress noted. Call light within reach. Bed in the lowest position.
[2019-12-23] VITALS (8 sets, daily range): BP systolic 113–141; BP diastolic 55–74
[2019-12-23] MEDS: ALBUTEROL/IPRATROPIUM 3 ML NEB NEB SCH ×4 (00:20→19:46)
[2019-12-23 05:39] LABS: EOSINOPHILS % 0.3 % (0.0-6.0); HEMATOCRIT 34.5 % (34.2-44.1); HEMOGLOBIN 11.5 g/dL (12.0-16.0); LYMPHOCYTES # (AUTO) 0.5 (1.0-3.2); LYMPHOCYTES % 16.8 % (18.0-39.1); MEAN CORPUSCULAR HGB CONC 33.3 g/dL (31-35); MEAN CORPUSCULAR VOLUME 83.9 fL (81-99); MONOCYTES # (AUTO) 0.3 (0.2-0.8); MONOCYTES % 9.1 % (4.4-11.3); NEUTROPHILS # (AUTO) 2.1 (2.1-6.9); NEUTROPHILS % 72.1 % (38.7-80.0); PLATELET COUNT 149 x10e3/uL (140-360); RED BLOOD COUNT 4.11 x10e6/uL (3.6-5.1); RED CELL DISTRIBUTION WIDTH 13.2 % (11.7-14.4)
[2019-12-23 06:09] LABS: ALANINE AMINOTRANSFERASE 17 IU/L (0-55); ALBUMIN 2.9 g/dL (3.5-5.0); ALKALINE PHOSPHATASE 107 IU/L (40-150); ANION GAP 10.1 mmol/L (8-16); BLOOD UREA NITROGEN 10 mg/dL (7-26); BUN/CREATININE RATIO 13 (6-25); CALCIUM 8.3 mg/dL (8.4-10.2); CARBON DIOXIDE 29 mmol/L (22-29); CHLORIDE 105 mmol/L (98-107); CREATININE, SERUM 0.76 mg/dL (0.57-1.11); EST GLOMERULAR FILTRATION RATE > 60 ML/MIN (60-); GLUCOSE 85 mg/dL (74-118); POTASSIUM 3.1 mmol/L (3.5-5.1); SODIUM 141 mmol/L (136-145)
[2019-12-23] MEDS: FAMOTIDINE 20 MG TAB PO SCH ×2 (08:43→17:27)
[2019-12-23] MEDS: FLUTICASONE PROPIONATE NASAL SPRAY NS SCH ×2 (08:43→17:27)
[2019-12-23] MEDS: NEBIVOLOL 10 MG TAB PO SCH (08:44)
[2019-12-23] MEDS: DULOXETINE HCL 30 MG DELAYED RELEASE PO SCH (08:44)
[2019-12-23] MEDS: AMLODIPINE BESYLATE 5 MG TAB PO SCH (08:44)
[2019-12-23] MEDS: VALSARTAN 160 MG TAB PO SCH (08:45)
[2019-12-23] MEDS: EZETIMIBE 10 MG TAB PO SCH (08:45)
[2019-12-23] MEDS: CEFTRIAXONE SOD 1 GM/NS 50 ML 50 ML IV SCH (11:45)
[2019-12-23] MEDS: AZITHROMYCIN 500MG/NS 250 ML 250 ML IV SCH (12:44)
[2019-12-23] MEDS: GUAIFENESIN/CODEINE 10 ML CUP PO PRN ×2 (14:50→20:55)
[2019-12-23] MEDS: ENOXAPARIN SOD INJ 40 MG/0.4 ML SYR SC SCH (17:27)
--- NOTE | 2019-12-23 17:52 | Progress Note ---
DATE: SUBJECTIVE: The patient has less wheezing and dyspnea. She still has some cough. She has no fevers. PHYSICAL EXAMINATION: VITAL SIGNS: The blood pressure is 132/69 and saturation is 95% on 3 L. HEENT: Shows no facial swelling or erythema. The oropharynx is normal. CARDIAC: Reveals regular rate and rhythm with normal S1 and S2. LUNGS: Auscultation of lungs reveals some rhonchi bilaterally. There is no wheezing. ABDOMEN: Soft, nontender. There is no rebound or guarding. EXTREMITIES: Show no leg edema or calf tenderness. There is no cyanosis or clubbing. SKIN: Shows no rashes. NEUROLOGIC: Shows no focal abnormalities. IMPRESSION: 1. Community-acquired pneumonia with sepsis, present on admission. 2. Leukopenia and thrombocytopenia. 3. Hypertension. PLAN: 1. Continue current antibiotics. 2. Monitor blood counts. 3. Wean oxygen. MD VIRIDIANA Montano/ELLEN /[id number]
--- NOTE | 2019-12-23 19:18 | NUR ---
report given to oncoming nurse, walking rounds complete.
[2019-12-23] MEDS ORDERED: POTASSIUM CHLORIDE 20 MEQ TAB CR PO STA (22:32)
[2019-12-24] VITALS (7 sets, daily range): BP systolic 124–142; BP diastolic 65–71
[2019-12-24] MEDS: ALBUTEROL/IPRATROPIUM 3 ML NEB NEB SCH ×4 (00:49→19:00)
[2019-12-24 03:52] LABS: BASOPHILS % 0.3 % (0.0-1.0); EOSINOPHILS # (AUTO) 0.1 (0.0-0.4); EOSINOPHILS % 1.7 % (0.0-6.0); HEMATOCRIT 35.2 % (34.2-44.1); HEMOGLOBIN 11.7 g/dL (12.0-16.0); LYMPHOCYTES # (AUTO) 0.5 (1.0-3.2); LYMPHOCYTES % 17.2 % (18.0-39.1); MEAN CORPUSCULAR HEMOGLOBIN 27.7 pg (28-32); MEAN CORPUSCULAR HGB CONC 33.2 g/dL (31-35); MEAN CORPUSCULAR VOLUME 83.4 fL (81-99); MONOCYTES # (AUTO) 0.3 (0.2-0.8); MONOCYTES % 8.3 % (4.4-11.3); NEUTROPHILS # (AUTO) 2.1 (2.1-6.9); NEUTROPHILS % 70.2 % (38.7-80.0); PLATELET COUNT 160 x10e3/uL (140-360); RED BLOOD COUNT 4.22 x10e6/uL (3.6-5.1); RED CELL DISTRIBUTION WIDTH 13.2 % (11.7-14.4)
[2019-12-24 04:32] LABS: ANION GAP 14.6 mmol/L (8-16); BLOOD UREA NITROGEN 12 mg/dL (7-26); BUN/CREATININE RATIO 14 (6-25); CALCIUM 8.7 mg/dL (8.4-10.2); CARBON DIOXIDE 25 mmol/L (22-29); CHLORIDE 106 mmol/L (98-107); CREATININE, SERUM 0.88 mg/dL (0.57-1.11); EST GLOMERULAR FILTRATION RATE > 60 ML/MIN (60-); GLUCOSE 88 mg/dL (74-118); POTASSIUM 3.6 mmol/L (3.5-5.1); SODIUM 142 mmol/L (136-145)
--- NOTE | 2019-12-24 07:10 | NUR ---
PT UP IN BED ESTING ,NO S/S DISCOMFORT.
[2019-12-24] MEDS: FAMOTIDINE 20 MG TAB PO SCH ×2 (08:07→17:05)
[2019-12-24] MEDS: NEBIVOLOL 10 MG TAB PO SCH (08:09)
[2019-12-24] MEDS: EZETIMIBE 10 MG TAB PO SCH (08:09)
[2019-12-24] MEDS: LORATADINE 10 MG TAB PO SCH (08:09)
[2019-12-24] MEDS: FLUTICASONE PROPIONATE NASAL SPRAY NS SCH ×2 (08:09→17:05)
[2019-12-24] MEDS: AMLODIPINE BESYLATE 5 MG TAB PO SCH (08:09)
[2019-12-24] MEDS: DULOXETINE HCL 30 MG DELAYED RELEASE PO SCH (08:09)
[2019-12-24] MEDS: VALSARTAN 160 MG TAB PO SCH (08:09)
--- NOTE | 2019-12-24 09:14 | NUR ---
DR SHEN HERE
[2019-12-24] MEDS: CEFTRIAXONE SOD 1 GM/NS 50 ML 50 ML IV SCH (11:17)
[2019-12-24] MEDS: AZITHROMYCIN 500MG/NS 250 ML 250 ML IV SCH (12:00)
[2019-12-24] MEDS ORDERED: LORATADINE 10 MG TAB PO SCH (15:45)
--- NOTE | 2019-12-24 15:53 | Progress Note ---
DATE: SUBJECTIVE: The patient reports feeling better. She has less cough and less congestion. She has no fevers. PHYSICAL EXAMINATION: VITAL SIGNS: The patient is afebrile. The blood pressure is 142/71 and saturation is 94%. HEENT: Shows no facial swelling or erythema. CARDIAC: Reveals regular rate and rhythm with normal S1 and S2. LUNGS: Auscultation of lungs reveals rhonchorous breath sounds bilaterally. There is no wheezing. ABDOMEN: Soft and nontender. There is no rebound or guarding. IMPRESSION: 1. Community-acquired pneumonia. 2. Leukopenia and thrombocytopenia. 3. Hypertension. PLAN: 1. Complete antibiotics. 2. Continue to monitor blood counts and await completion of evaluation by Hematology. 3. Respiratory viral panel ordered and results are pending. MD VIRIDIANA Montano/ELLEN /[id number]
--- NOTE | 2019-12-24 16:03 | Consultation ---
DATE OF CONSULTATION: 12/24/[address] Walker and thank you Dr. Jung for this consultation. HISTORY OF PRESENT ILLNESS: The patient is a 69-year-old female with a past medical history include hypertension, currently in hospital with worsening shortness of breath, cough, and congestion. She also complaining of low-grade fever. She denies any hematemesis, melena, hematochezia. No prior history of any blood disorder. Admission platelet count was low and she had also worsening leukopenia. PAST MEDICAL HISTORY: Hypertension. ALLERGIES: NKDA. MEDICATION LIST: Reviewed. SOCIAL HISTORY: Quit smoking many years ago. No history of alcohol or drugs. REVIEW OF SYSTEMS: A 12-point review as per HPI. PHYSICAL EXAMINATION: GENERAL: Alert, awake, communicative. HEENT: Normocephalic and atraumatic. [place] conjunctivae clear. Sclerae are pale. NECK: Supple. CHEST: Decreased breath sounds at the bases. CARDIOVASCULAR: Regular rate and rhythm. ABDOMEN: Soft. EXTREMITIES: No edema. LABS AND IMAGING: Reviewed. ASSESSMENT AND PLAN: The patient with history of multiple medical conditions and including for the followin. Pancytopenia. The patient's admission platelet counts were low. 2. She also had worsening leukopenia. 3. She denies any prior history of alcoholism or hepatitis. 4. She has history of positive M protein in the past. RECOMMENDATIONS: Complete workup includes: 1. Leukemia lymphoma panel. 2. LDH. 3. Serum protein electrophoresis. The patient clinically doing okay. She can be discharged hematology and followed as outpatient. We will follow the patient closely. MD ARIEL Arndt/MODL /[id number]
--- NOTE | 2019-12-24 17:00 | NUR ---
PT TRANSPORTED TO XRAY,VIA W/C
[2019-12-24] MEDS: ENOXAPARIN SOD INJ 40 MG/0.4 ML SYR SC SCH (17:05)
--- NOTE | 2019-12-24 17:24 | Diagnostic Imaging Report ---
EXAMINATION: CHEST 2 VIEWS INDICATION: Pneumonia COMPARISON: Chest CT 12/21/2019 FINDINGS: LINES/TUBES:None LUNGS:The lungs are hyperinflated. Bilateral upper lobe predominant emphysematous changes. Mild patchy bibasilar opacities. PLEURA:No pleural effusion or pneumothorax. MEDIASTINUM:The cardiomediastinal silhouette appears unchanged in size and shape. BONES/SOFT TISSUES:No acute osseous injury. ABDOMEN:No free air under the diaphragm. IMPRESSION: Hyperinflated lungs with mild patchy bibasilar opacities, possibly representing aspiration or pneumonia in the proper clinical setting. Signed by: Yves Brady MD on 12/24/2019 5:22 PM
--- NOTE | 2019-12-24 18:04 | NUR ---
PTUP IN BED NO DISTRESSS NOTED.
[2019-12-25] VITALS: BP 145/68
[2019-12-25] MEDS: ALBUTEROL/IPRATROPIUM 3 ML NEB NEB SCH ×3 (00:40→13:40)
[2019-12-25 04:00] VITALS: BP 128/60
[2019-12-25 06:04] LABS: BASOPHILS % 0.3 % (0.0-1.0); EOSINOPHILS # (AUTO) 0.1 (0.0-0.4); EOSINOPHILS % 2.9 % (0.0-6.0); HEMATOCRIT 35.9 % (34.2-44.1); HEMOGLOBIN 11.7 g/dL (12.0-16.0); LYMPHOCYTES # (AUTO) 0.5 (1.0-3.2); LYMPHOCYTES % 15.2 % (18.0-39.1); MEAN CORPUSCULAR HEMOGLOBIN 27.9 pg (28-32); MEAN CORPUSCULAR HGB CONC 32.6 g/dL (31-35); MEAN CORPUSCULAR VOLUME 85.7 fL (81-99); MONOCYTES # (AUTO) 0.3 (0.2-0.8); MONOCYTES % 9.8 % (4.4-11.3); NEUTROPHILS # (AUTO) 2.4 (2.1-6.9); NEUTROPHILS % 69.8 % (38.7-80.0); PLATELET COUNT 157 x10e3/uL (140-360); RED BLOOD COUNT 4.19 x10e6/uL (3.6-5.1); RED CELL DISTRIBUTION WIDTH 13.4 % (11.7-14.4)
[2019-12-25 06:19] LABS: ANION GAP 12.3 mmol/L (8-16); BLOOD UREA NITROGEN 10 mg/dL (7-26); BUN/CREATININE RATIO 13 (6-25); CARBON DIOXIDE 27 mmol/L (22-29); CHLORIDE 106 mmol/L (98-107); EST GLOMERULAR FILTRATION RATE > 60 ML/MIN (60-); GLUCOSE 97 mg/dL (74-118); POTASSIUM 3.3 mmol/L (3.5-5.1); SODIUM 142 mmol/L (136-145)
--- NOTE | 2019-12-25 07:15 | NUR ---
RECD PT IN BED NO DISTRESS NOTED,DENIES PAIN
[2019-12-25 08:00] VITALS: BP 157/74
[2019-12-25] MEDS: FAMOTIDINE 20 MG TAB PO SCH ×2 (08:00→17:35)
[2019-12-25] MEDS: DULOXETINE HCL 30 MG DELAYED RELEASE PO SCH (08:30)
[2019-12-25] MEDS: LORATADINE 10 MG TAB PO SCH (08:30)
[2019-12-25] MEDS: NEBIVOLOL 10 MG TAB PO SCH (08:30)
[2019-12-25] MEDS: AMLODIPINE BESYLATE 5 MG TAB PO SCH (08:30)
[2019-12-25] MEDS: EZETIMIBE 10 MG TAB PO SCH (08:30)
[2019-12-25] MEDS: VALSARTAN 160 MG TAB PO SCH (08:30)
--- NOTE | 2019-12-25 08:30 | NUR ---
PT C/O DRY COUGH MEDICATED,DR MARTIN HERE NO NEW ORDERS
[2019-12-25] MEDS: FLUTICASONE PROPIONATE NASAL SPRAY NS SCH ×2 (09:00→17:35)
[2019-12-25] MEDS: GUAIFENESIN/CODEINE 10 ML CUP PO PRN (09:30)
--- NOTE | 2019-12-25 10:06 | Progress Note ---
DATE: SUBJECTIVE: The patient feels better. She has less coughing. She has less dyspnea. She has no fever. PHYSICAL EXAMINATION: VITAL SIGNS: The patient is afebrile. The vital signs are stable. HEENT: Shows no facial swelling or erythema. CARDIAC: Reveals regular rate and rhythm with normal S1 and S2. PULMONARY: Auscultation of lungs reveal clear breath sounds bilaterally. There is no wheezing. ABDOMEN: Soft and nontender. There is no rebound or guarding. EXTREMITIES: Show no leg edema or calf tenderness. There is no cyanosis or clubbing. SKIN: Shows no rashes. NEUROLOGICAL: Shows no focal abnormalities. LABORATORY DATA: White blood cell count is 3.4, hemoglobin is 11.7, and the platelet count is 157. The BUN to creatinine ratio is normal. Potassium is 3.3. Repeat x-ray today shows hyperinflated lungs, some persistent alveolar opacities. IMPRESSION: 1. Community-acquired pneumonia. 2. Leukopenia and thrombocytopenia. 3. Hypertension. PLAN: 1. The patient can be discharged home. 2. She should complete course of azithromycin as an outpatient. 3. The patient should follow up in 1-2 weeks for a repeat chest x-ray. 4. The patient needs to follow up with Hematology to review the results of her serum protein electrophoresis and other studies. Aries Jung MD [facility]/JOSEL /[id number]
[2019-12-25] MEDS: CEFTRIAXONE SOD 1 GM/NS 50 ML 50 ML IV SCH (11:30)
[2019-12-25 12:00] VITALS: BP 149/71
[2019-12-25] MEDS: AZITHROMYCIN 500MG/NS 250 ML 250 ML IV SCH (12:00)
--- NOTE | 2019-12-25 12:30 | NUR ---
PT IV INFILTRATED REFUSED TO RESTART ,STATED SHE IS GOING HOME
[2019-12-25 16:00] VITALS: BP 146/74
--- NOTE | 2019-12-25 16:47 | NUR ---
IMM LETTER EXPLAINED TO PT. PT VERBALIZED UNDERSTANDING. IMM LETTER SIGNED. COPY TO PT AND COPY TO CHART.
[2019-12-25] MEDS ORDERED: GUAIFENESI100 MG/5 M PO (17:06)
[2019-12-25] MEDS ORDERED: POTASSIUM CHLORIDE 20 MEQ TAB CR PO NR (17:15)
[2019-12-25] MEDS: ENOXAPARIN SOD INJ 40 MG/0.4 ML SYR SC SCH (17:35)
--- NOTE | 2019-12-25 18:21 | NUR ---
PT DISCHARGED HOME,IV DCD WITHOUT REDNESS OR SWELLING,PRESCRIPTIONS AND INSTRUCTIONS GIVEN COPY ON CHART.PT AMBULATED TO AUTO
--- NOTE | 2019-12-26 13:12 | Progress Note ---
DATE: SUBJECTIVE: The patient seen and examined today. The patient appears comfortable. Clinical condition is improving. OBJECTIVE: GENERAL: Alert, awake, and communicative. HEENT: Normocephalic and atraumatic. Sclerae are pale. Conjunctivae clear. NECK: Supple. CHEST: Clear to auscultation. CARDIOVASCULAR: Regular rate and rhythm. ABDOMEN: Soft. EXTREMITIES: No edema. LABORATORY DATA: Lab and imaging reviewed. ASSESSMENT AND PLAN: The patient with history of multiple medical conditions and currently following for pancytopenia. The patient's head workup report is pending. Workup includes flow cytometry of peripheral blood and myeloma panel. 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 Clinically doing better. Count is stable. The patient can be discharged. Follow as an outpatient. We will follow the patient closely. MD ARIEL Arndt/ELLEN /[id number]
--- NOTE | 2019-12-29 09:10 | Discharge Summary ---
CONSULTING PHYSICIANS: Dr. Theo Pope, Dr. Aries Jung. CHIEF DIAGNOSES: Community-acquired pneumonia, hypoxia. ADMIT DIAGNOSES: Community-acquired pneumonia, leukopenia, thrombocytopenia, hypertension, rhinosinusitis. DISCHARGE DIAGNOSIS: Community-acquired pneumonia and hypertension. PAST MEDICAL HISTORY: Hypertension. SURGICAL HISTORY: History of eyelid surgery SOCIAL HISTORY: Former smoker. FAMILY HISTORY: Noncontributory. ALLERGIES: NO KNOWN ALLERGIES. HOSPITAL COURSE: This is a 69-year-old woman with no prior history of asthma or COPD, got admitted with worsening congestion and cough for several days associated with low-grade fever of 100.5 at home. The patient also had nasal congestion and postnasal drainage. Her chest x-ray shows no pleural effusions. The patient got treated with IV azithromycin and Rocephin. While she was in the hospital she also got evaluated by Pulmonary. Her platelets on were 130 and WBC was 2.29 and got evaluated by Dr. Pope, oncologist. The patient is currently cleared by Pulmonary and oncologist for discharge on oral antibiotics. PHYSICAL EXAMINATION: VITAL SIGNS: Temperature 97.9, heart rate is 81, blood pressure is 149/71, oxygen saturation is 92 on room air. GENERAL: Alert, awake and noncommunicative. HEENT. Normocephalic and atraumatic. Neck was supple. CHEST pain: Clear on auscultation. CARDIOVASCULAR : Regular rate and rhythm. ABDOMEN: Soft. EXTREMITIES: No edema. LABORATORY DATA: Labs from 12/25/2019 shows WBC is 3.48, hemoglobin is 11.7, hematocrit is 35.9, platelets is 157, sodium is 142, potassium is 3.3, repleted, chloride 106, CO2 is 27, BUN is 10 and creatinine 0.80. The patient upon discharge is stable. Follow up with Pulmonary in 7-10 days and Oncology in 2 weeks. Dictated by Cortney Hallman NP MD ASHLEY Guaman/ELLEN /[id number]
== END 2019-12-25 18:42 | disposition home or self-care (01) | DRG 871 ==
LOC: FSED 10:04 → ERHOLD 11:27 → MED/SURG3 13:30 → OBSVTOIN 12-21 09:46
PROVIDERS: ADMIT Internal Medicine; ATTEND Internal Medicine
DX: A41.9 Sepsis, unspecified organism (principal); J15.9 Unspecified bacterial pneumonia; M62.82 Rhabdomyolysis; E78.5 Hyperlipidemia, unspecified; K21.9 Gastro-esophageal reflux disease without esophagitis; I10 Essential (primary) hypertension; Z87.891 Personal history of nicotine dependence; M81.0 Age-related osteoporosis without current pathological fracture; F32.9 Major depressive disorder, single episode, unspecified; Z83.3 Family history of diabetes mellitus; Z80.9 Family history of malignant neoplasm, unspecified; Z82.3 Family history of stroke; E87.6 Hypokalemia; D72.819 Decreased white blood cell count, unspecified; D69.6 Thrombocytopenia, unspecified; J32.9 Chronic sinusitis, unspecified; M54.5 Low back pain
CPT/HCPCS: 36415; 71046; 71260; 72100; 80048; 80053; 82550; 82553; 82607; 82728; 82746; 83036; 83518; 83735; 83880; 84100; 84165; 84443; 84484; 85025; 87040; 87070; 87299; 87400; 87449; 88184; 93005; 93306; 94640; 99284; G0378; J0456; J0696; J1100; J1650; J1940; J2930; J7030; Q9967

== ENCOUNTER 2020-01-04 12:32 | Emergency (ER) | payer OTHER, MEDICARE ==
[~2020-01-04] VITALS: Ht 157.5 cm; Wt 73.0 kg
[~2020-01-04 12:32] MED LIST changes: +ALENDRONATE SOD70 MG PO; +AMLODIPINE BESYL5 MG PO; +GUAIFENESI100 MG/5 M PO; +TAMIFLU75 MG PO; +TESSALON PERLE100 MG; +VALSARTAN-HCTZ1 EAC3 PO; +ZETIA10 MG PO
[2020-01-04] MEDS ORDERED: KETOROLAC TROMETHAMINE 60 MG/2 ML VIAL IM ONE (12:45)
[2020-01-04] MEDS ORDERED: PREDNISONE 20 MG TAB PO ONE (12:45)
[2020-01-04] MEDS ORDERED: ONDANSETRON HCL 4 MG ORAL DISINTEGRATING TAB PO ONE (12:45)
[2020-01-04] MEDS ORDERED: KETOROLAC TROMETHAMINE 30 MG/ML VIAL ONE (12:53)
[2020-01-04] MEDS ORDERED: ACETAMINOPHEN 325 MG TAB PO ONE (13:00)
--- NOTE | 2020-01-04 14:40 | Diagnostic Imaging Report ---
CT LUMBAR SPINE WITHOUT-HOPD HISTORY: 69-year-old male with lower back pain that began on December 20 but is persistent. COMPARISON: Lumbosacral spine x-rays 12/22/2019 TECHNIQUE: Axial CT images of the lumbar spine were obtained without contrast. Coronal and sagittal reconstructions obtained from the axial data. One or more of the following dose reduction techniques were used: Automated exposure control, adjustment of the mA and/or kV according to patient size, and/or utilization of iterative reconstruction technique. DISCUSSION: There are 5 nonrib-bearing lumbar vertebral bodies. Lumbar lordosis is preserved. There is no significant scoliosis or subluxation. Vertebral body height loss at L4 and L5 which measures approximately 30%. Prominent Schmorl's nodes at the left lateral margin of the L4 and L5 vertebral bodies with invagination of the intervertebral discs through the superior endplates. Partial lumbarization of the S1 vertebral body. No gross spinal canal mass is seen. The paravertebral and paraspinal soft tissues are unremarkable. L1-L2: No gross canal or foraminal stenosis. L2-L3: Severe degenerative disc changes with severe disc height loss. Asymmetric left posterior disc osteophyte complex results in moderate canal and left lateral recess stenosis and probable compression of the descending left L3 nerve root. No foraminal stenosis. L3-L4: Symmetric disc bulge. No canal stenosis. Mild bilateral foraminal stenosis secondary to degenerative disc changes and facet arthrosis. L4-L5: Symmetric disc bulge results in moderate to severe canal stenosis. Moderate bilateral foraminal stenosis secondary to degenerative disc changes and facet arthrosis. L5-S1: Symmetric disc bulge results in moderate to severe canal stenosis. Moderate bilateral foraminal stenosis secondary to degenerative disc changes and facet arthrosis. Additional findings: Moderate atherosclerosis within the infrarenal abdominal aorta and bilateral common iliac arteries. IMPRESSION: 1. Age-indeterminate vertebral body compression deformities at L4 and L5 with associated prominent Schmorl's nodes at the left lateral vertebral body margins. Correlation for point tenderness is recommended. If there is clinical concern lumbar spine MRI is suggested for further evaluation. 2. Degenerative disc changes from L2 through S1 worse at L2-L3. 3. Moderate left lateral canal stenosis at L2-L3 with suspected impingement of the descending left L3 nerve root and moderate to severe canal stenosis at L4-L5 and L5-S1. 4. Moderate bilateral foraminal stenosis at L4-L5 and L5-S1. This preliminary report was issued by Dr. Andres Haque M.D. neuroradiology fellow at 1439 hours on 01/04/2020. The images and preliminary report were reviewed and signed by Dr. Jacque Marquez, neuroradiology faculty, on 01/04/2020 at 1626 hours. Signed by: Dr. Jacque Marquez M.D. on 01/04/2020 4:27 PM
[2020-01-04 15:00] VITALS: BP 121/68
== END 2020-01-04 15:00 | disposition home or self-care (01) ==
LOC: FSED 12:32
DX: S39.012A Strain of muscle, fascia and tendon of lower back, initial encounter (principal); M47.26 Other spondylosis with radiculopathy, lumbar region; M51.16 Intervertebral disc disorders with radiculopathy, lumbar region; M51.36 Other intervertebral disc degeneration, lumbar region; I10 Essential (primary) hypertension; E78.5 Hyperlipidemia, unspecified; K21.9 Gastro-esophageal reflux disease without esophagitis; F41.9 Anxiety disorder, unspecified
CPT/HCPCS: 72131; 81003; 99283; J1885 ×2; J7512; Q0162

== ENCOUNTER 2020-06-10 05:58 | Observation (INO) | payer OTHER, MEDICARE ==
[2020-06-04 16:30] LABS: BASOPHILS % 0.4 % (0.0-1.0); EOSINOPHILS # (AUTO) 0.2 (0.0-0.4); EOSINOPHILS % 3.4 % (0.0-6.0); HEMATOCRIT 37.6 % (34.2-44.1); HEMOGLOBIN 12.1 g/dL (12.0-16.0); LYMPHOCYTES % 20.4 % (18.0-39.1); MEAN CORPUSCULAR HEMOGLOBIN 26.7 pg (28-32); MEAN CORPUSCULAR HGB CONC 32.2 g/dL (31-35); MONOCYTES # (AUTO) 0.5 (0.2-0.8); MONOCYTES % 9.9 % (4.4-11.3); NEUTROPHILS # (AUTO) 3.3 (2.1-6.9); NEUTROPHILS % 65.7 % (38.7-80.0); PLATELET COUNT 160 x10e3/uL (140-360); RED BLOOD COUNT 4.53 x10e6/uL (3.6-5.1); RED CELL DISTRIBUTION WIDTH 14.3 % (11.7-14.4)
[2020-06-04 16:44] LABS: INR 0.92; PROTHROMBIN TIME 12.8 seconds (11.9-14.5)
[2020-06-04 16:45] LABS: PARTIAL THROMBOPLASTIN TIME 27.7 seconds (23.8-35.5)
[2020-06-04 16:49] LABS: CALCIUM 9.5 mg/dL (8.4-10.2); CREATININE, SERUM 1.11 mg/dL (0.57-1.11)
--- NOTE | 2020-06-04 16:54 | Diagnostic Imaging Report ---
EXAMINATION: CHEST 2 VIEWS INDICATION: Preop evaluation of the lungs. COMPARISON: Multiple prior chest x-rays including most recent on 12/24/2019. FINDINGS: TUBES and LINES: None. LUNGS: Normal lung volumes. Lungs are clear. No consolidations. PLEURA: No pleural effusion or pneumothorax. HEART AND MEDIASTINUM: The cardiomediastinal silhouette is unremarkable. BONES AND SOFT TISSUES: No acute osseous lesion. Soft tissues are unremarkable. UPPER ABDOMEN: No free air under the diaphragm. IMPRESSION: Normal chest x-ray. Signed by: Silvino Tariq MD on 06/04/2020 4:51 PM
[~2020-06-10] VITALS: Ht 160 cm; Wt 65.8 kg
[~2020-06-10 05:58] MED LIST changes: +TIZANIDINE HCL4 MG PO; +TRAMADOL HCL100 MG PO; +VIVISCAL PO
[2020-06-10] MEDS ORDERED: THROMBIN FOR SOLN 5,000 UNIT VIAL ONE (06:46)
[2020-06-10] MEDS ORDERED: BUPIVACAINE 0.5%/EPI 30 ML SDV INJ ONE (06:46)
[2020-06-10] MEDS ORDERED: LIDOCAINE HCL (LTA) 4 ML SOLN ONE (07:15)
[2020-06-10] MEDS ORDERED: IBUPROFEN 800MG/ 200ML 200 ML IV ONE (07:15)
[2020-06-10] MEDS ORDERED: CEFAZOLIN SOD 1 GM/NS 50ML 50 ML IV ONE (07:41)
[2020-06-10] MEDS ORDERED: VANCOMYCIN HCL 1 GM VIAL ONE (08:11)
[2020-06-10] MEDS ORDERED: PROMETHAZINE HCL (IM) 25 MG/ML VIAL IM PRN (10:30)
[2020-06-10] MEDS ORDERED: TIZANIDINE HCL 4 MG TAB PO PRN (10:30)
[2020-06-10] MEDS ORDERED: MORPHINE SULFATE 5 MG/ML VIAL IM PRN (10:30)
[2020-06-10] MEDS ORDERED: CARISOPRODOL 350 MG TAB PO PRN (10:30)
[2020-06-10] MEDS ORDERED: MAGNESIUM/ALUMINUM/SIMETHICONE 30 ML UDC PO PRN (10:30)
[2020-06-10] MEDS ORDERED: ACETAMINOPHEN 325 MG TAB PO PRN (10:30)
[2020-06-10] MEDS ORDERED: HYDROMORPHONE 2MG/ML 2 MG/ML ML IV PRN (10:30)
--- OUTSIDE RECORDS SUMMARY | 2020-06-10 10:55 | XMS REPORT | Continuity of Care Document ---
Author Author Celsa Dumont JAZMINE WAGONER Organization 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 Phone [facility] Information [employer] Unavailable Un available Problems Problem Status Onset Date Classification Date Reported Comments Source Z12.39=ENCOUNTER FOR OTHER SCREENING FOR Active 11/26/2019 [facility] Medications No Data Provided for This Section Allergies, Adverse Reactions, Alerts Substance Category Reaction Severity Reaction type Status Date Reported Comments Source No Known Medication Allergies Assertion Drug aller gy [facility] Immunizations No Data Provided for This Section Results No Data Provided for This Section Pathology Reports No Data Provided for This Section Diagnostic Reports Report Value Date Source Breast Mammo Scrn GOVIND incl CAD MA BILATERAL DIGITAL SCREENING MAMMOGRAM WITH CAD: 11/29/2019 CLINICAL: /Screening. Current study was evaluated with a Computer Aided Detection (CAD) system. COMPARISON:Comparison is made to exams dated: 08/04/2014 mammogram and 09/14/2014 ultrasound - [facility]. TECHNIQUE: Mammographic views were obtained using digital acquisition. [employer] Version 1.3 was utilized for computer aided detection. FINDINGS: There are scattered fibroglandular densities in both breasts. There are stable benign appearing calcifications and masses in the right breast. There also are stable benign appearing calcifications in the left breast. No significant masses, calcifications, or other findings are seen in either breast. There has been no significant interval change. IMPRESSION: BENIGN RECOMMENDATION:There is no mammographic evidence of malignancy. A 1 year screening mammogram is recommended.(11/29/2020) This exam was interpreted at [id number] for [facility]. Rona Jacob M.D. ap/penrad:12/01/2019 10:13:21 Sample Mounter(s): Kiara Kurtz, [facility] letter sent: BI-RADS 1/2 Mammogram BI-RADS: 2 Benign 11/29/2019 [facility] Consultation Notes No Data Provided for This Section Discharge Summaries No Data Provided for This Section History and Physicals No Data Provided for This Section Vital Signs No Data Provided for This Section Encounters Location Location Details Encounter Type Encounter Number Reason For Visit Attending Provider ADM Date DC Date Status Source [facility] [id number] Hebert Toscano 11/29/2019 11/30/2019 [facility] Procedures No Data Provided for This Section Assessment and Plan No Data Provided for This Section Plan of Care No Data Provided for This Section Social History Social History Date Source Social History TypeResponse 11/30/2019 [facility] Family History No Data Provided for This Section Advance Directives No Data Provided for This Section Functional Status No Data Provided for This Section
--- OUTSIDE RECORDS SUMMARY | 2020-06-10 10:55 | XMS REPORT | Summary of Care ---
Author Author [facility] Organization [facility] Address Unknown Phone Unavailable Encounter HQ Encntr_alias(FIN) [id number] Date(s): 11/29/19 - 11/29/19 [facility] [address] [place] [address]- [phone] Discharge Disposition: Home or Self Care Attending Physician: Hebert Toscano Referring Physician: Hebert Toscano Vital Signs No data available for this section Problem List No data available for this section Allergies, Adverse Reactions, Alerts No Known Medication Allergies Medications No data available for this section Results No data available for this section Immunizations No data available for this section Procedures No data available for this section Social History Social History Type Response Assessment and Plan No data available for this section
--- OUTSIDE RECORDS SUMMARY | 2020-06-10 10:56 | XMS REPORT | Continuity of Care Document ---
Author Author [facility] t Organization [facility] Address [address] [place] [address] Dr. Stokes [address] [place] [address] Phone Unavailable Care Team Providers Care Tin Flipper Name Role Phone EMILY PAYNE DO PCP REBECCA ALVARADO Attphys Unavailable José Luis VALDIVIA Attphys Unavailable GONZALO RODRÍGUEZ Attphys Unavailable Carlita Toscano Attphys Unavailable SYLVIA HAN Attphys Unavailable Jad Street Attphys GONZALO RODRÍGUEZ Admphys Unavailable Payers Payer Name Policy Type Policy Number Effective Date Expiration Date S [facility] [id number] 2019 00:00:00 2020 00:0 0:00 [facility] Medicare A & B [id number] 2017 00:00:00 [facility] Cigna o [id number] 2003 00:00:00 2019 00:0 0:00 [facility] Problems Condition Name Condition Details Condition Category Status Onset Date Resolution Date Last Treatment Date Treating Clinician Comments Source Z12.39=ENCOUNTER FOR OTHER SCREENING FOR Z12.39=ENCOUNTER FOR OTHER SCREENING FOR Active 11/26/2019 [facility] Active 2019-11-26 00:00:00 2019-11-29 09:20:00 Celsa Hopson BREAST MASS [facility] MASS Active 08/21/2014 [facility] Active 2014-08-21 00:00:00 2014-09-14 09:17:00 Celsa Hopson SCREENING SCRE ENING Active 07/30/2014 [facility] Active 2014-07-30 00:00:00 2014-09-09 13:26:00 Celsa Hopson Community acquired bacterial pneumonia Community acquired ba cterial pneumonia Problem Active [facility] Hypoxia Hypoxia Problem Active [facility] Elevated uric acid in blood El evated uric acid in blood Active Problem 05/02/2020 [facility] Problem Active 2020-05-02 02:00:07 Wendy Hopson Elevated liver enzymes Elev ated liver enzymes Active Problem 05/02/2020 [facility] Problem Active 2020-05-02 02:00:07 Celsa Hopson Vitamin D deficiency Chand[place] min D deficiency Active Problem 05/02/2020 [facility] Problem Active 2020-05-02 02:00:07 Celsa Hopson Insomnia, unspecified type Ins omnia, unspecified type Active Problem 05/02/2020 [facility] Problem Active 2020-05-02 02:00:07 Wendy Hopson History of anemia Hist ory of anemia Active Problem 10/24/2018 [facility] Problem Active 2018-10-24 03:04:28 Celsa Hopson Osteopenia, unspecified location Osteopenia, unspecified location Active Problem 01/08/2020 [facility] Problem Active 2020-01-08 02:06:04 Wendy Hopson Environmental allergies Envi ronmental allergies Active Problem 05/02/2020 [facility] Problem Active 2020-05-02 02:00:07 Celsa Hopson Fatty liver Fatt y liver Active Problem 05/02/2020 [facility] Problem Active 2 02:00:07 Celsa Hopson Renal cyst, right Yessica l cyst, right Active Problem 05/02/2020 [facility] Problem Active 2020-05-02 02:00:07 Celsa Hopson Depressed Depr essed Active Problem 05/02/2020 [facility] Problem Active 2 02:00:07 Celsa Hopson Prediabetes Pred iabetes Active Problem 01/08/2020 [facility] Problem Active 2 02:06:04 Celsa Hopson Hypercholesteremia Hype rcholesteremia Active Problem 05/02/2020 [facility] Problem Active 2020-05-02 02:00:07 Celsa Villanuevaann Heartburn Hear tburn Active Problem 05/02/2020 [facility] Problem Active 2 02:00:07 [facility] Sciatica, left side Scia hailee, left side Active Problem 05/02/2020 [facility] Problem Active 2020-05-02 02:00:07 [facility] Hypertension Hype rtension Active Problem 05/02/2020 [facility] Problem Active 2 02:00:07 [facility] Hematuria, unspecified type He maturia, unspecified type Active Diagnosis 09/13/2017 [facility] Diagnosis Active 2017-09-13 03:04:15 Memevelyn Hopson Elevated serum creatinine Elev ated serum creatinine Active Diagnosis 05/04/2017 [facility] Diagnosis Active 2017-05-04 02:02:51 Memevelyn Hopson Pain in right leg Pain in right leg Active Diagnosis 08/16/2017 [facility] Diagnosis Active 2017-08-16 02:02:09 [facility] Pain of left leg Pain of left leg Active Diagnosis 08/16/2017 [facility] Diagnosis Active 2017-08-16 02:02:09 C[facility]a [facility] Screening for breast cancer Sc reening for breast cancer Active Diagnosis 11/28/2019 [facility] Diagnosis Active 2019-11-28 03:03:49 Wendy Hopson Encntr for general adult medical exam w/o abnormal fin dings Encntr for general adult medical exam w/o abnormal findings Active Diagnosis 11/28/2019 [facility] Diagnosis Active 2019-11-28 03:03:49 [facility] Screening for HIV (human immunodeficiency virus) Screening for HIV (human immunodeficiency virus) Active Diagnosis 08/16/2017 [facility] Diagnosis Active 2017-08-16 02:02:09 [facility] Screening for osteoporosis Scr eening for osteoporosis Active Diagnosis 08/16/2017 [facility] Diagnosis Active 2017-08-16 02:02:09 Wendy Hopson Type 2 diabetes mellitus without complic ation, without long-term current use of insulin Type 2 diabetes mellitus without complication, without long-term current use of insulin Active Diagnosis 05/02/2020 [facility] Diagnosis Active 2020-05-02 02:00:07 Celsa Hopson Stage 3 chronic kidney disease Stage 3 chronic kidney disease Active Problem 05/02/2020 [facility] Problem Active 2020-05-02 02:00:07 Wendy Hopson 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 ncy with near- normal immunoglobulins or with hyperimmunoglobulinemia Active Diagnosis 05/02/2020 [facility] Diagnosis Active 2020-05-02 02:00:07 Celsa Hopson Abnormal laboratory test result Abnormal laboratory test result Active Problem 10/24/2018 [facility] Problem Active 2018-10-24 03:04:28 Wendy Hopson Acute left ankle pain Acut e left ankle pain Active Diagnosis 11/23/2018 [facility] Diagnosis Active 2018-11-23 03:03:08 Celsa Hopson Depression Depr ession Active Problem 08/25/2016 [facility] Problem Active 2016-08-25 02:17:52 Celsa Hopson Essential hypertension Esse ntial hypertension Active Problem 08/31/2015 [facility] Problem Active 2015-08-31 03:21:01 Celsa Hopson Vitamin d deficiency Chandni min d deficiency Active Problem 08/31/2015 [facility] Problem Active 2015-08-31 03:21:01 Celsa Hopson Prediabetes Pred iabetes Active Problem 08/31/2015 [facility] Problem Active 2 03:21:01 Celsa Hopson Flu vaccine need Flu vaccine need Active Diagnosis 07/22/2014 [facility] Diagnosis Active 2014-07-22 02:18:37 Celsa Hopson Constipation Cons tipation Active Diagnosis 07/22/2014 [facility] Diagnosis Active 2014-07-22 02:18:37 Celsa Hopson Abnormal gamma globulin level Abnormal gamma globulin level Active Diagnosis 10/07/2018 [facility] Diagnosis Active 2018-10-07 03:03:40 Wendy Hopson Encounter for screening mammogram for breast cancer Encounter for screening mammogram for breast cancer Active Diagnosis 10/07/2018 [facility] Diagnosis Active 2018-10-07 03:03:40 Celsa Villanuevaann Sleep disturbance Slee p disturbance Active Diagnosis 04/02/2014 [facility] Diagnosis Active 2014-04-02 02:03:14 Celsa Villanuevaann Acute dermatitis Acut e dermatitis Active Diagnosis 04/02/2014 [facility] Diagnosis Active 2014-04-02 02:03:14 Celsa Villanuevaann Overweight Over weight Active Problem 08/31/2015 [facility] Problem Active 2 03:21:01 Celsa Villanuevaann Body Mass Index 27.0-27.9, adult Body Mass Index 27.0- 27.9, adult Active Problem 08/31/2015 [facility] Problem Active 2015-08-31 03:21:01 Celsa Villanuevaann Osteopenia Oste openia Active Problem 02/24/2017 [facility] Problem Active 2 02:00:07 [facility] Hyperlipidemia Hype rlipidemia Active Problem 08/31/2015 [facility] Problem Active 2 03:21:01 [facility] Elevated alkaline phosphatase level Elevated alkaline phosphatase level Active Diagnosis 01/19/2015 [facility] Diagnosis Active 2015-01-19 02:23:58 [place] brissa Hopson Essential hypertension Esse ntial hypertension Active Diagnosis 08/20/2015 [facility] Diagnosis Active 2015-08-20 03:28:01 Celsa Hopson Hallux valgus of right foot Soares llux valgus of right foot Active Diagnosis 09/21/2015 [facility] Diagnosis Active 2015-09-21 04:38:55 Wendy Hopson Right ankle instability Righ t ankle instability Active Diagnosis 09/21/2015 [facility] Diagnosis Active 2015-09-21 04:38:55 Celsa Hopson Capsulitis of ankle, right Cap sulitis of ankle, right Active Diagnosis 09/21/2015 [facility] Diagnosis Active 2015-09-21 04:38:55 Wendy Hopson Shingles Lozano gles Active Diagnosis 03/25/2016 [facility] Diagnosis Active 2016-03-25 02:21:58 Celsa Hopson Low back pain Low back pain Active Diagnosis 05/02/2020 [facility] Diagnosis Active 2020-05-02 02:00:07 Celsa Hopson Sciatica Scia hailee Active Diagnosis 03/09/2016 [facility] Diagnosis Active 2016-03-09 02:14:21 [facility] Needs flu shot Need s flu shot Active Diagnosis 08/18/2016 [facility] Diagnosis Active 2016-08-18 02:00:57 Celsa Villanuevaann Pre-operative clearance Pre- operative clearance Active Diagnosis 08/18/2016 [facility] Diagnosis Active 2016-08-18 02:00:57 [facility] Right foot pain Righ t foot pain Active Diagnosis 08/18/2016 [facility] Diagnosis Active 2016-08-18 02:00:57 [facility] History of bunionectomy of right great toe History of bunionectomy of right great toe Active Diagnosis 08/18/2016 [facility] Diagnosis Active 2016-08-18 02:00:57 Celsa Villanuevaann Need for hepatitis C screening test Need for hepatitis C screening test Active Diagnosis 11/23/2016 [facility] Diagnosis Active 2016-11-23 03:22:18 Celsa Hopson SOB (shortness of breath) on exertion SOB (shortness of breath) on exertion Active Diagnosis 11/28/2019 [facility] Diagnosis Active 2019-11-28 03:03:49 [facility] Age-related osteoporosis without current pathological fracture Age-related osteoporosis without current pathological fracture Active Problem 05/02/2020 [facility] Problem Active 2020-05-02 02:00:07 Celsa Hopson Screening for colon cancer Scr eening for colon cancer Active Diagnosis 11/28/2019 [facility] Diagnosis Active 2019-11-28 03:03:49 Memor juan Hopson Asymptomatic postmenopausal estrogen deficiency Asymptomatic postmenopausal estrogen deficiency Active Diagnosis 11/28/2019 [facility] Diagnosis Active 2019-11-28 03:03:49 Celsa Hopson BMI 27.0-27.9,adult BMI 27.0-27.9,adult Active Diagnosis 05/02/2020 [facility] Diagnosis Active 2020-05-02 02:00:07 Celsa Hopson History of pneumonia Hist ory of pneumonia Active Diagnosis 05/02/2020 [facility] Diagnosis Active 2020-05-02 02:00:07 [facility] Leukopenia, unspecified type L eukopenia, unspecified type Active Diagnosis 05/02/2020 [facility] Diagnosis Active 2020-05-02 02:00:07 Wendy [facility]al [facility] Other chronic pain Othe r chronic pain Active Diagnosis 05/02/2020 [facility] Diagnosis Active 2020-05-02 02:00:07 [facility] Acute bilateral thoracic back pain Acute bilateral thoracic back pain Active Diagnosis 05/02/2020 [facility] Diagnosis Active 2020-05-02 02:00:07 Me brissa Hopson Neck pain Neck pain Active Diagnosis 05/02/2020 [facility] Diagnosis Active 2020-05-02 02:00:07 [facility] Sporadic Goiter Spor adic Goiter Active 01/22/2013 [facility] Problem Active 2013-01-22 06:00:43 M emofay [facility] Allergies, Adverse Reactions, Alerts Allergy Name Allergy Type Status Severity Reaction(s) Onset Date Inacti ve Date Treating Clinician Comments Source MarjA. NSangA. Active Info Not Available 2020-04-27 00:00:00 [facility] No Known Medication Allergies No Known Medication Allergies Active [facility] No Known Drug Allergies No Known Drug Allergies Active [facility] Family History Family Member Diagnosis Comments Start Date Stop Date Source Unknown Family Member Family History 2013-01-22 06:00:43 2 06:00:43 [facility] Social [facility] Social Habit Start Date Stop Date Quantity Comments Source DepressionScreenin2016-11-21 00:00:00 2016-11-21 00:00:00 [facility] Social History 2013-01-22 06:00:43 2013-01-22 06:00:43 [facility] Medications Ordered Medication Name Filled Medication Name Start Date Stop Da te Current Medication? 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 Ac And Hs [facility] Tizanidine HCl 2019-11-28 03:03:49 Yes Hebert Toscano TK 1 T PO TID [facility] Ergocalciferol 2019-11-28 03:03:49 Yes Hebert Toscano 1 capsule [facility] Fosamax 2019-11-19 00:00:00 Yes Hebert Toscano 1 tablet 30 minutes before the first food, beverage or medicine of the day with plain water [facility] Zetia 2018-11-23 03:03:08 Yes Hebert Toscano 1 tab let [facility] Pantoprazole Sodium 2018-11-23 03:03:08 Yes Hebert stoll TAKE 1 TABLET BY MOUTH ONCE A DAY [facility] Ergocalciferol 2018-11-23 03:03:08 Yes Hebert Toscano 1 capsule [facility] MetFORMIN HCl ER 2018-11-19 00:00:00 Yes Hebert Toscano 1 tablet with evening meal [facility] Zetia 2018-11-19 00:00:00 Yes Hebert Toscano 1 tab let [facility] Zetia 2018-10-07 03:03:40 Yes Hebert Toscano 1 tab let [facility] Amlodipine Besylate 2018-10-07 03:03:40 Yes Hebert Toscano 1 tablet [facility] Pantoprazole Sodium 2018-10-07 03:03:40 Yes Hebert Toscano 1 tablet [facility] Bystolic 2018-10-07 03:03:40 Yes Hebert Toscano 1 tablet [facility] Hfxdxchldr-Rseipzgzt-CLKJ 2018-10-03 00:00:00 Yes Hebert Zazueta artinedodie 1 tablet [facility] Cymbalta 2018-07-23 00:00:00 Yes Hebert Toscano 1 capsule [facility] Trazodone HCl 2018-07-21 00:00:00 Yes Hebert Toscano 1 tablet [facility] Amlodipine Besylate 2018-07-21 00:00:00 Yes Hebert Toscano 1 tablet [facility] Bystolic 2018-07-21 00:00:00 Yes Hebert Toscano 1 tablet [facility] Bystolic 2017-11-02 03:02:34 Yes Hebert Toscano 1 tablet [facility] Cymbalta 2017-09-27 03:01:38 Yes Hebert Toscano 1 capsule [facility] Bystolic 2017-05-04 02:02:51 Yes Hebert Toscano 1 tablet [facility] Montelukast Sodium 2017-05-04 02:02:51 Yes Hebert Toscano TK 1 T PO ONCE QD [facility] Latisse 2017-05-02 00:00:00 Yes Hebert Toscano 1 d rop each eye [facility] Latisse 2017-05-02 00:00:00 Yes Hebert Toscano 1 d rop each eye [facility] Amlodipine Besylate 2017-04-02 00:00:00 Yes Hebert Toscano 1 tablet [facility] Valsartan-Hydrochlorothiazide 2017-04-02 00:00:00 Yes Imer Toscano 1 tablet [facility] Valsartan-Hydrochlorothiazide 2017-04-02 00:00:00 Yes Imer Toscano 1/2 tablet [facility] Amlodipine Besylate 2017-04-02 00:00:00 Yes Hebert Toscano 1 tablet [facility] Ergocalciferol 2017-03-09 00:00:00 Yes Hebert Toscano 1 capsule [facility] Ergocalciferol 2017-03-09 00:00:00 Yes Hebert Toscano 1 capsule [facility] Trazodone HCl 2017-02-28 00:00:00 Yes Hebert Toscano 1 tablet at bedtime as needed [facility] Trazodone HCl 2017-02-28 00:00:00 Yes Hebert Toscano 1-2 tablet [facility] Pantoprazole Sodium 2016-11-23 03:22:18 Yes Hebert Toscano 1 tablet [facility] Bystolic 2016-11-23 03:22:18 Yes Hebert Toscano 1 tablet [facility] Lisinopril 2016-11-23 03:22:18 Yes Hebert Toscano 1 tablet [facility] Singulair 2016-11-21 00:00:00 Yes Hebert Toscano 1 tablet [facility] Cyclobenzaprine HCl 2016-04-13 00:00:00 Yes Kim Delaneyell 1 tablet [facility] Naproxen 2016-04-13 00:00:00 Yes Kim Calero 1 ta blet [facility] Pantoprazole Sodium 2016-04-03 00:00:00 Yes Hebert Toscano 1 tablet [facility] Pantoprazole Sodium 2016-04-03 00:00:00 Yes Hebert Toscano 1 tablet [facility] Cymbalta 2016-03-25 02:21:58 Yes Kim Delaneyell take one capsule by mouth every day [facility] Lisinopril 2016-03-25 02:21:58 Yes Kim Abdias 1 tablet [facility] Bystolic 2016-03-23 00:00:00 Yes [facility] 00:00:00 Yes Hebert Toscano 1 tablet [facility] Medrol (Rishabh) 2016-03-21 00:00:00 Yes Kim Abdias as directed [facility] 2016-03-09 02:14:21 No Emily Elkins 1 tablet [facility] Lisinopril 2016-03-09 02:14:21 Yes Emily Elkins 1 tablet [facility] Bystolic 2016-03-07 00:00:00 No Kim Delaneyell 1 ta blet [facility] Valtrex 2016-03-07 00:00:00 Yes Emily Elkins 1 tablet [facility] Lisinopril 2015-07-23 00:00:00 Yes Hebert Toscano 1 tablet [facility] Zetia 2015-07-23 00:00:00 Yes Kim Delaneyell 1 table t [facility] Pantoprazole Sodium 2015-07-20 00:00:00 Yes Theo León 1 tablet [facility] Bystolic 2015-07-20 00:00:00 Yes Hebert Toscano 1 tablet [facility] Multi For Her 50+ 2014-07-22 02:18:37 No Emily Pope Unknown [facility] Biotin 2014-07-22 02:18:37 Yes Emily Pope 1 tablet [facility] Hydrochlorothiazide 2014-07-22 02:18:37 Yes Emily Pope 1 tablet [facility] Latisse 2014-03-30 00:00:00 Yes Jill Paz 1 drop to upper eyelid margin (do not apply to lower lid) [facility] Cymbalta 2014-01-29 00:00:00 Yes Emily ChahalFox 1 capsule [facility] Cymbalta 60 MG Oral Capsule Delayed Release Particles 2013-01-17 05:00:00 Yes ; Start Date: 01/17/2013 (Active) [facility] Hydrochlorothiazide 25 MG Oral Tablet 2013-01-17 05:00:00 Y es ; Start Date: 01/17/2013 (Active) Celsa Saunders 2013-01-16 00:00:00 No Emily Pope 1 capsule as needed [facility] Alendronate Sodium 70 Mg Tablet Alendronate Sodium 70 Mg Tablet Yes Weekly [facility] Amlodipine Besylate 5 Mg Tablet Amlodipine Besylate 5 Mg Tablet Yes 5 Daily [facility] Bystolic 20MG Bystolic 20MG Yes Daily [facility] Cymbalta 60 Mg Cymbalta 60 Mg Yes Daily [facility] Ezetimibe (Zetia) 10 Mg Tablet Ezetimibe (Zetia) 10 Mg Tablet Yes [address] [facility] Pantoprazole 20 Pantoprazole 20 Yes Daily [facility] Valsartan/Hydrochlorothiazide (Valsartan-Hctz 320-25 M g Tab) 1 Each Tablet Valsartan/Hydrochlorothiazide (Valsartan-Hctz 320-25 Mg Tab) 1 Each Tablet Yes Daily [facility] Lisinopril , Oral Lisinopril , Oral 2019-12-19 00:00:00 No Daily [facility] Vital Signs Vital Name Observation Time Observation Value Comments Source Weight 2020-04-27 13:45:00 [facility] Height 2020-04-27 13:45:00 [facility] Temperature Oral (F) 2020-04-27 13:45:00 96.9 F [facility] Heart Rate 2020-04-27 13:45:00 [facility] Diastolic (mm Hg) 2020-04-27 13:45:00 [facility] Systolic (mm Hg) 2020-04-27 13:45:00 [facility] Weight 2019-11-19 16:30:00 [facility] Height 2019-11-19 16:30:00 [facility] Heart Rate 2019-11-19 16:30:00 [facility] Diastolic (mm Hg) 2019-11-19 16:30:00 [facility] Systolic (mm Hg) 2019-11-19 16:30:00 [facility] Weight 2018-11-19 14:45:00 [facility] Height 2018-11-19 14:45:00 [facility] Heart Rate 2018-11-19 14:45:00 [facility] Diastolic (mm Hg) 2018-11-19 14:45:00 [facility] Systolic (mm Hg) 2018-11-19 14:45:00 Joseph [facility] Weight 2018-10-03 15:00:00 [facility] Height 2018-10-03 15:00:00 [facility] Heart Rate 2018-10-03 15:00:00 [facility] Diastolic (mm Hg) 2018-10-03 15:00:00 [facility] Systolic (mm Hg) 2018-10-03 15:00:00 [facility] Weight 2017-08-13 13:30:00 [facility] Height 2017-08-13 13:30:00 [facility] Heart Rate 2017-08-13 13:30:00 [facility] Diastolic (mm Hg) 2017-08-13 13:30:00 [facility] Systolic (mm Hg) 2017-08-13 13:30:00 Joseph [facility] Weight 2017-05-02 13:15:00 [facility] Height 2017-05-02 13:15:00 [facility] Heart Rate 2017-05-02 13:15:00 [facility] Diastolic (mm Hg) 2017-05-02 13:15:00 [facility] Systolic (mm Hg) 2017-05-02 13:15:00 [facility] Weight 2016-11-21 14:30:00 [facility] Height 2016-11-21 14:30:00 [facility] Diastolic (mm Hg) 2016-11-21 14:30:00 [facility] Systolic (mm Hg) 2016-11-21 14:30:00 Joseph [facility] Weight 2016-08-15 13:15:00 [facility] Height 2016-08-15 13:15:00 [facility] Heart Rate 2016-08-15 13:15:00 [facility] Diastolic (mm Hg) 2016-08-15 13:15:00 [facility] Systolic (mm Hg) 2016-08-15 13:15:00 Joseph [facility] Weight 2016-03-23 13:45:00 [facility] Height 2016-03-23 13:45:00 [facility] Heart Rate 2016-03-23 13:45:00 [facility] Diastolic (mm Hg) 2016-03-23 13:45:00 [facility] Systolic (mm Hg) 2016-03-23 13:45:00 Joseph [facility] Weight 2016-03-07 16:15:00 [facility] Height 2016-03-07 16:15:00 [facility] Heart Rate 2016-03-07 16:15:00 [facility] Diastolic (mm Hg) 2016-03-07 16:15:00 [facility] Systolic (mm Hg) 2016-03-07 16:15:00 Joseph [facility] Weight 2015-09-14 20:45:00 [facility] Height 2015-09-14 20:45:00 [facility] Heart Rate 2015-09-14 20:45:00 [facility] Diastolic (mm Hg) 2015-09-14 20:45:00 [facility] Systolic (mm Hg) 2015-09-14 20:45:00 [facility] Weight 2015-08-18 20:30:00 [facility] Height 2015-08-18 20:30:00 [facility] Heart Rate 2015-08-18 20:30:00 [facility] Diastolic (mm Hg) 2015-08-18 20:30:00 [facility] Systolic (mm Hg) 2015-08-18 20:30:00 [facility] Weight 2014-07-21 13:15:00 [facility] Height 2014-07-21 13:15:00 [facility] Heart Rate 2014-07-21 13:15:00 [facility] Diastolic (mm Hg) 2014-07-21 13:15:00 [facility] Systolic (mm Hg) 2014-07-21 13:15:00 [facility] Weight 2014-03-30 13:00:00 [facility] Height 2014-03-30 13:00:00 [facility] Temperature Oral (F) 2014-03-30 13:00:00 97.9 F [facility] Heart Rate 2014-03-30 13:00:00 [facility] Diastolic (mm Hg) 2014-03-30 13:00:00 [facility] Systolic (mm Hg) 2014-03-30 13:00:00 [facility] Procedures Procedure Date / Time Performed Performing Clinician [facility] e X-ray of chest, two views 2019-12-24 00:00:00 NEYMAR MARTIN CH I [facility] Computed tomography of chest with contrast 2019-12-21 00:00:00 H CARMEL NEYMAR [facility] Encounters Start Date/Time End Date/Time En[facility] Source 2020-04-27 08:45:00 2020-04-27 08:45:00 [facility] [id number] eClinicalWorks 2020-04-22 13:22:00 2020-04-22 13:22:00 [facility] [id number] eClinicalWorks 2020-01-06 14:25:00 2020-01-06 14:25:00 [facility] [id number] eClinicalWorks 2020-01-04 12:32:00 2020-01-04 15:00:00 Departed Emergency Room 1 ROBBY VALDIVIA [facility] [id number] [facility] 2019-12-21 09:46:00 2019-12-25 18:42:00 Discharged Inpatient 1 GONZALO RODRÍGUEZ [facility] [id number] [facility] 2019-11-29 09:10:00 2019-11-29 23:59:00 Outpatient Hong Toscano [facility] [id number] 2019-11-19 10:30:00 2019-11-19 10:30:00 [facility] [id number] eClinicalSolaiemes 2019-08-18 19:04:00 2019-08-18 23:03:00 Departed Emergency Room 1 SYLVIA HAN [facility] [id number] [facility] 2019-01-21 19:43:00 2019-01-21 21:53:00 Departed Emergency Room 1 SYLVIA HAN [facility] [id number] [facility] 2018-12-18 12:43:00 2018-12-18 12:43:00 [facility]patient [facility] [id number] eClinicalWorks 2018-11-19 08:45:00 2018-11-19 08:45:00 [facility] [id number] eClinicalWorks 2018-10-23 17:03:00 2018-10-23 17:03:00 [facility] [id number] eClinicalWorks 2018-10-03 15:24:00 2018-10-03 15:24:00 [facility] [id number] eClinicalWorks 2018-10-03 09:00:00 2018-10-03 09:00:00 [facility] [id number] eClinicalWorks 2018-03-17 11:26:00 2018-03-17 11:26:00 [facility] [id number] eClinicalWorks 2018-03-17 11:26:00 2018-03-17 11:26:00 [facility] [id number] eClinicalWorks 2018-03-17 11:25:00 2018-03-17 11:25:00 [facility] [id number] eClinicalWorks 2017-11-01 07:56:00 2017-11-01 07:56:00 [facility] [id number] eClinicalWorks 2017-09-26 11:49:00 2017-09-26 11:49:00 [facility] [id number] eClinicalWorks 2017-09-12 16:17:00 2017-09-12 16:17:00 [facility] [id number] eClinicalWorks 2017-08-13 08:30:00 2017-08-13 08:30:00 [facility] [id number] eClinicalWorks 2017-05-02 08:15:00 2017-05-02 08:15:00 [facility] [id number] eClinicalWorks 2017-03-09 13:28:00 2017-03-09 13:28:00 [facility] [id number] eClinicalWorks 2017-02-22 20:45:00 2017-02-22 20:45:00 [facility] [id number] eClinicalWorks 2016-11-21 08:30:00 2016-11-21 08:30:00 Outpatient [facility] [id number] eClinicalWorks 2016-08-24 14:42:00 2016-08-24 14:42:00 Outpatient [facility] [id number] eClinicalWorks 2016-08-17 15:48:00 2016-08-17 15:48:00 Outpatient [facility] [id number] eClinicalWorks 2016-08-15 08:15:00 2016-08-15 08:15:00 Outpatient [facility] [id number] eClinicalWorks 2016-04-13 09:21:00 2016-04-13 09:21:00 Outpatient [facility] [id number] eClinicalWorks 2016-03-23 08:45:00 2016-03-23 08:45:00 Outpatient [facility] [id number] eClinicalWorks 2016-03-15 20:16:00 2016-03-15 20:16:00 Outpatient [facility] [id number] eClinicalWorks 2016-03-07 11:15:00 2016-03-07 11:15:00 Outpatient [facility] [id number] eClinicalWorks 2016-01-26 10:46:00 2016-01-26 10:46:00 Outpatient [facility] [id number] eClinicalWorks 2016-01-24 09:21:00 2016-01-24 09:21:00 Outpatient [facility] [id number] eClinicalWorks 2016-01-17 14:42:00 2016-01-17 14:42:00 Outpatient [facility] [id number] eClinicalWorks 2015-09-14 14:45:00 2015-09-14 14:45:00 Outpatient [facility] [id number] eClinicalWorks 2015-08-30 13:38:00 2015-08-30 13:38:00 Outpatient [facility] [id number] eClinicalWorks 2015-08-18 14:30:00 2015-08-18 14:30:00 Outpatient [facility] [id number] eClinicalWorks 2015-08-13 08:56:00 2015-08-13 08:56:00 Outpatient [facility] [id number] eClinicalWorks 2015-08-13 08:56:00 2015-08-13 08:56:00 Outpatient [facility] [id number] eClinicalWorks 2015-01-18 13:44:00 2015-01-18 13:44:00 Outpatient [facility] [id number] eClinicalWorks 2014-09-14 09:05:00 2014-09-14 23:59:[address] AMANDEEP [id number] 2014-08-04 09:11:00 2014-08-04 23:59:[address] [id number] 2014-07-21 08:15:00 2014-07-21 08:15:00 Outpatient [facility] [id number] eClinicalWorks 2014-03-30 08:00:00 2014-03-30 08:00:00 Outpatient [facility] [id number] eClinicalWorks 2013-01-22 01:01:00 2013-01-22 01:00:43 Outpatient [facility] [id number] Results Test Description Test Time Test Comments Results Result Comments Source CHEST 2 VIEWS 2020-06-04 16:47:00 [place] [address] Patient Name: SERVANDO NEWMAN MR #: [id number] : 1950 Age/Sex: 70/F Req #: [id number] Adm Physician: Ordered by: REBECCA ALVARADO MD Report #: [id number] Location: OR Room/Bed: Procedure: [id number] DX/CHEST 2 VIEWS Exam Date: 06/04/20 Exam Time: 1617 REPORT STATUS: Signed EXAMINATION: CHEST 2 VIEWS INDICATION: Preop evaluation of the lungs. COMPARISON: Multiple prior chest x-rays including most recent on 12/24/2019. FINDINGS: TUBES and LINES: None. LUNGS: Normal lung volumes. Lungs are clear. No conso lidations. PLEURA: No pleural effusion or pneumothorax. HEART AND MEDIASTINUM: The cardiomediastinal silhouette is unremarkable. BONES AND SOFT TISSUES: No acute osseous lesion. Soft tissues are unremarkable. UPPER ABDOMEN: No free air under the diaphragm. IMPRESSION: Normal chest x-ray. Signed by: Silvino Antony MD on 06/04/2020 4:51 PM Dictated By: SILVINO ANTONY MD 50 Transcribed By: RAYMUNDO on 06/04/201650 COPY TO: REBECCA ALVARADO MD CT LUMBAR SPINE WITHOUT-HOPD 2020-01-04 14:08:00 [place] [address] Patient Name: SERVANDO NEWMAN MR #: [id number] : 1950 Age/Sex: 69/F Req #: [id number] Adm Physician: Ordered by: ROBBY VALDIVIA MD Report #: [id number] Location: [facility] Room/Bed: Procedure: [id number] HOPD/CT LUMBAR SPINE WITHOUT-HOPD Exam Date: 01/04/20 Exam Time: 1300 REPORT STATUS: Signed CT LUMBAR SPINE WITHOUT-HOPD HISTORY: 69-year-old male with lower back pain that began on December 20 but is persistent. COMPARISON: Lumbosacral spine x-rays 12/22/2019 TECHNIQUE: Axial CT images of the lumbar spine were obtained without contrast. Coronal and sagittal reconstructions obtained from the axial data. One or more of the following dose reduction techniques were used: Automated exposure control, adjustment of the mA and/or kV according to patient size, and/or utilization of iterative reconstruction technique. DISCUSSION: There are 5 nonrib- bearing lumbar vertebral bodies. Lumbar lordosis is preserved. There is no significant scoliosis or subluxation. Vertebral body height loss at L4 and L5 which measures approximately 30%. Prominent Schmorl's nodes at the left lateral margin of the L4 and L5 vertebral bodies with invagination of the intervertebral discs through the superior endplates. Partial lumbarization of the S1 vertebral body. No gross spinal canal mass is seen. The paraverte bral and paraspinal soft tissues are unremarkable. L1-L2: No gross canal or foraminal stenosis. L2-L3: Severe degenerative disc changes with severe disc height loss. Asymmetric left posterior disc osteophyte complex results in moderate canal and left lateral recess stenosis and probable compression of the descending left L3 nerve root. No foraminal stenosis. L3-L4: Symmetric disc bulge. No canal stenosis. Mild bilateral foraminal stenosis secondary to degenerative disc changes and facet arthrosis. L4-L5: Symmetric disc bulge results in moderate to severe canal stenosis. Moderate bilateral foraminal stenosis secondary to degenerative disc changes and facet arthrosis. L5-S1: Symmetric disc bulge results in moderate to severe canal stenosis. Moderate bilateral foraminal stenosis secondary to degenerative disc changes and facet arthrosis. Additional findings: Moderate atherosclerosis within the infrarenal abdominal aorta and bilateral common iliac arteries. IMPRESSION: 1. Age-indeterminate vertebral body compression deformities at L4 and L5 with associated prominent Schmorl's nodes at the left lateral vertebral body margins. Correlation for point tenderness is recommended. If there is clinical concern lumbar spine MRI is suggested for further evaluation. 2. Degenerative disc changes from L2 through S1 worse at L2-L3. 3. Moderate left lateral canal stenosis at L2-L3 with suspected impingement of the descending left L3 nerve root and moderate to severe canal stenosis at L4-L5 and L5-S1. 4. Moderate bilateral foraminal stenosis at L4-L5 and L5-S1. This preliminary report was issued by Dr. Andres Haque M.D. neuroradiology fellow at 1439 hours on 01/04/2020. The images and preliminary report were reviewed and signed by Dr. Jacque aMrquez, neuroradiology faculty, on 01/04/2020 at 1626 hours. Signed by: Dr. Jacque Marquez M.D. on 01/04/2020 4:27 PM Dictated By: JACQUE GUALLPA MD 26 Transcribed By: RAYMUNDO on 01/04/201626 COPY TO: ROBBY VALDIVIA MD Folate 2019-12-31 04:05:00 Test Item Folate (test code = 2284-8) 5.2 >3.0 A serum folate concentration of less than 3.1 ng/mL isconsidered to represent cl inical deficiency.Performed at: - [facility] [id number] Director: Wallace Cameron MD, Phone: [phone] Regional Medical CenterAlbumin (PEP)2019-12-26 22:18:00* Test Item Value Reference Range Interpretation Comments Albumin (PEP) (test code = Albumin (PEP)) 2.9 2.9-4.4 [facility] CenterAlpha-1-Iexrvcwpb7342-66-85 22:18:00* Test Item Value Reference Range Interpretation Comments Heygh-4-Ltnswudyz (test code = 2865-4) 0.4 0.0-0.4 [facility] CenterAlpha-2-Qntlgkxns8782-74-37 22:18:00* Test Item Value Reference Range Interpretation Comments Fmycs-2-Khmztrtuc (test code = 2868-8) 1.1 0.4-1.0 H [facility] CenterBeta Gamma Jghwbuml3489-94-63 22:18:00* Test Item Value Reference Range Interpretation Comments Beta Gamma Globulin (test code = 2871-2) 1.0 0.7-1.3 [facility] CenterGamma Lvzgynmzl7691-02-20 22:18:00* Test Item Value Reference Range Interpretation Comments Gamma Globulins (test code = 2874-6) 0.6 0.4-1.8 [facility] CenterTotal Protein (PEP)2019-12-26 22:18:00* Test Item Value Reference Range Interpretation Comments Total Protein (PEP) (test code = 2885-2) 5.9 6.0-8.5 L [facility] CenterGlobulin2020-03-06 22:18:00* Test Item Value Reference Range Interpretation Comments Globulin (test code = 40818-2) 3.0 2.2-3.9 [facility] CenterKappa Light Chain Ixehondx6092-82-56 22:18:00* Test Item Value Reference Range Interpretation Comments [place] Light Chain Analysis (test code = 16216-1) 42.7 3.3-1 9.4 H [facility] CenterLambda Light Chain Gbsododa4013-07-12 22:18:00* Test Item Value Reference Range Interpretation Comments Lambda Light Chain Analysis (test code = 57514-8) 25.6 5.7- 26.3 [facility] CenterTotl [place]/Lambda Light Chain Ratio 2019-12-26 22:18:00* Test Item Value Reference Range Interpretation Comments Totl [place]/Lambda Light Chain Ratio (test code = 60771-6) 1.67 0.26-1.65 H Performed at: - [facility] [address] [id number] Director: Wallace Cameron MD, Phone: [phone] at: DA - [facility] [address], [place], [place] [id number] Director: NANCY Martinez MD, Phone: [phone] Regional Medical CenterProtein Electrophoresis V-Acuti2252-64Zyjcb3999-60-51 22:18:00* Test Item Value Reference Range Interpretation Comments Protein Electrophoresis M-Thomas (test code = 65028-2) Not Observ ed Not Observed [facility] CenterAlbumin/Globulin Kdevg9462-00-14 22:18:00 * Test Item Value Reference Range Interpretation Comments Albumin/Globulin Ratio (test code = 1759-0) 1.0 0.7-1.7 [facility] CenterProtein Electrophoresis Efgm3826-98-08 22:18:00* Test Item Value Reference Range Interpretation Comments Protein Electrophoresis Note (test code = Protein Electropho resis Note) Comment . Protein electrophoresis scan will follow via computer,mail, or mason tender restoration labor delivery. [facility] Hospitalodium Ghkse6317-59-33 06:19:00* Test Item Value Reference Range Interpretation Comments Sodium Level (test code = 2951-2) 142 136-145 [facility] CenterPotassium Rwfwn8188-40-72 06:19:00* Test Item Value Reference Range Interpretation Comments Potassium Level (test code = 2823-3) 3.3 3.5-5.1 L [facility] CenterChloride Yiwxt7847-59-48 06:19:00* Test Item Value Reference Range Interpretation Comments Chloride Level (test code = 2075-0) 106 98-107 [facility] CenterCarbon Dioxide Xuhnp0860-93-59 06:19:00* Test Item Value Reference Range Interpretation Comments Carbon Dioxide Level (test code = 2028-9) 27 22-29 [facility] CenterAnion Pov3698-78-21 06:19:00* Test Item Value Reference Range Interpretation Comments Anion Gap (test code = 19544-6) 12.3 8-16 [facility] CenterBlood Urea Luxqrzcf7475-55-36 06:19:00* Test Item Value Reference Range Interpretation Comments Blood Urea Nitrogen (test code = 3094-0) 10 7-26 [facility] CenterCreatinine2020-03-05 06:19:00* Test Item Value Reference Range Interpretation Comments Creatinine (test code = 2160-0) 0.80 0.57-1.11 [facility] CenterBUN/Creatinine Ijhay0522-80-11 06:19:00* Test Item Value Reference Range Interpretation Comments BUN/Creatinine Ratio (test code = 3097-3) 13 6-25 [facility] CenterEstimat Glomerular Filtration Rate 2019-12-25 06:19:00* Test Item Value Reference Range Interpretation Comments Estimat Glomerular Filtration Rate (test code = 587446745) > 60 >60 Ranges were taken from the National Kidney Disease Education Program and the [facility] literature.Reference ranges:60 or greater: Nwnupg20-62 ( for 3 consecutive months): Chronic kidney disease 15 or less: Kidney failurePermian Regional Medical CenterGlucose Fpbim7352-17-88 06:19:00* Test Item Value Reference Range Interpretation Comments Glucose Level (test code = TZX4903) 97 74-118 [facility] CenterCalcium Qpugm0799-08-90 06:19:00* Test Item Value Reference Range Interpretation Comments Calcium Level (test code = 86814-1) 9.0 8.4-10.[address] [facility] Hospitalodium Thsdx6299-04-12 06:19:00* Test Item Value Reference Range Interpretation Comments Sodium Level (test code = 2951-2) 142 136-145 [facility] CenterPotassium Kwnrf7386-33-53 06:19:00* Test Item Value Reference Range Interpretation Comments Potassium Level (test code = 2823-3) 3.3 3.5-5.1 L [facility] CenterChloride Lvizt9011-29-07 06:19:00* Test Item Value Reference Range Interpretation Comments Chloride Level (test code = 2075-0) 106 98-107 [facility] CenterCarbon Dioxide Kmmez6477-24-39 06:19:00* Test Item Value Reference Range Interpretation Comments Carbon Dioxide Level (test code = 2028-9) 27 22-29 [facility] CenterAnion Hha9858-01-85 06:19:00* Test Item Value Reference Range Interpretation Comments Anion Gap (test code = 42842-5) 12.3 8-16 [facility] CenterBlood Urea Fsdkuaua0908-05-77 06:19:00* Test Item Value Reference Range Interpretation Comments Blood Urea Nitrogen (test code = 3094-0) 10 7- [facility] CenterCreatinine2020-03-05 06:19:00* Test Item Value Reference Range Interpretation Comments Creatinine (test code = 2160-0) 0.80 0.57-1.11 [facility] CenterBUN/Creatinine Urmri3321-09-89 06:19:00* Test Item Value Reference Range Interpretation Comments BUN/Creatinine Ratio (test code = 3097-3) 13 6- [facility] CenterEstimat Glomerular Filtration Rate 2019-12-25 06:19:00* Test Item Value Reference Range Interpretation Comments Estimat Glomerular Filtration Rate (test code = 966554841) > 60 >60 Ranges were taken from the National Kidney Disease Education Program and the [facility] literature.Reference ranges:60 or greater: Vwjmph17-87 ( for 3 consecutive months): Chronic kidney disease 15 or less: Kidney failurePermian Regional Medical CenterGlucose Dzteo8134-65-01 06:19:00* Test Item Value Reference Range Interpretation Comments Glucose Level (test code = JVE5984) 97 74-118 [facility] CenterCalcium Hfrbz9857-34-04 06:19:00* Test Item Value Reference Range Interpretation Comments Calcium Level (test code = 65440-4) 9.0 8.4-10.2 [facility] CenterWhite Blood Udhwg5999-32-93 06:08:00* Test Item Value Reference Range Interpretation Comments White Blood Count (test code = 6690-2) 3.48 4.8-10.8 L [facility] CenterRed Blood Finyx4966-70-67 06:08:00* Test Item Value Reference Range Interpretation Comments Red Blood Count (test code = 789-8) 4.19 3.6-5.1 [facility] CenterHemoglobin2020-03-05 06:08:00* Test Item Value Reference Range Interpretation Comments Hemoglobin (test code = 09382-7) 11.7 12.0-16.0 L [facility] CenterHematocrit2020-03-05 06:08:00* Test Item Value Reference Range Interpretation Comments Hematocrit (test code = 4544-3) 35.9 34.2-44.1 [facility] CenterMean Corpuscular Gcyyfs3541-79-50 06:08:00* Test Item Value Reference Range Interpretation Comments Mean Corpuscular Volume (test code = 787-2) 85.7 81-99 [facility] CenterMean Corpuscular Mnvorxevot1449-21-51 06:08:00* Test Item Value Reference Range Interpretation Comments Mean Corpuscular Hemoglobin (test code = 785-6) 27.9 28-32 L [facility] CenterMean Corpuscular Hemoglobin Concent 2019-12-25 06:08:00* Test Item Value Reference Range Interpretation Comments Mean Corpuscular Hemoglobin Concent (test code = 786-4) 32.6 31-35 [facility] CenterRed Cell Distribution Bkxoj1234-58-99 06:08:00* Test Item Value Reference Range Interpretation Comments Red Cell Distribution Width (test code = 67703-3) 13.4 11.7 -14.4 [facility] CenterPlatelet Nhjde2559-87-43 06:08:00* Test Item Value Reference Range Interpretation Comments Platelet Count (test code = 777-3) 157 140-360 [facility] CenterNeutrophils (%) (Auto)2019-12-25 06:08:00 * Test Item Value Reference Range Interpretation Comments Neutrophils (%) (Auto) (test code = 21548-0) 69.8 38.7-80.0 [facility] CenterLymphocytes (%) (Auto)2019-12-25 06:08:00 * Test Item Value Reference Range Interpretation Comments Lymphocytes (%) (Auto) (test code = 736-9) 15.2 18.0-39.1 L [facility] CenterMonocytes (%) (Auto)2019-12-25 06:08:00* Test Item Value Reference Range Interpretation Comments Monocytes (%) (Auto) (test code = 5905-5) 9.8 4.4-11.3 [facility] CenterEosinophils (%) (Auto)2019-12-25 06:08:00 * Test Item Value Reference Range Interpretation Comments Eosinophils (%) (Auto) (test code = 713-8) 2.9 0.0-6.0 [facility] CenterBasophils (%) (Auto)2019-12-25 06:08:00* Test Item Value Reference Range Interpretation Comments Basophils (%) (Auto) (test code = 706-2) 0.3 0.0-1.0 [facility] CenterIM GRANULOCYTES %2019-12-25 06:08:00* Test Item Value Reference Range Interpretation Comments IM GRANULOCYTES % (test code = IM GRANULOCYTES %) 2.0 0.0- 1.0 H [facility] CenterNeutrophils # (Auto)2019-12-25 06:08:00* Test Item Value Reference Range Interpretation Comments Neutrophils # (Auto) (test code = 751-8) 2.4 2.1-6.9 [facility] CenterLymphocytes # (Auto)2019-12-25 06:08:00* Test Item Value Reference Range Interpretation Comments Lymphocytes # (Auto) (test code = 64901-4) 0.5 1.0-3.2 L [facility] CenterMonocytes # (Auto)2019-12-25 06:08:00* Test Item Value Reference Range Interpretation Comments Monocytes # (Auto) (test code = 742-7) 0.3 0.2-0.8 [facility] CenterEosinophils # (Auto)2019-12-25 06:08:00* Test Item Value Reference Range Interpretation Comments Eosinophils # (Auto) (test code = 711-2) 0.1 0.0-0.4 [facility] CenterBasophils # (Auto)2019-12-25 06:08:00* Test Item Value Reference Range Interpretation Comments Basophils # (Auto) (test code = 704-7) 0.0 0.0-0.1 [facility] CenterAbsolute Immature Granulocyte (auto 2019-12-25 06:08:00* Test Item Value Reference Range Interpretation Comments Absolute Immature Granulocyte (auto (margo t code = Absolute Immature Granulocyte (auto) 0.07 0-0.1 [facility] CenterWhite Blood Nkqzl9201-81-50 06:08:00* Test Item Value Reference Range Interpretation Comments White Blood Count (test code = 6690-2) 3.48 4.8-10.8 L [facility] CenterRed Blood Sdzib6374-22-48 06:08:00* Test Item Value Reference Range Interpretation Comments Red Blood Count (test code = 789-8) 4.19 3.6-5.1 [facility] CenterHemoglobin2020-03-05 06:08:00* Test Item Value Reference Range Interpretation Comments Hemoglobin (test code = 16592-2) 11.7 12.0-16.0 L [facility] CenterHematocrit2020-03-05 06:08:00* Test Item Value Reference Range Interpretation Comments Hematocrit (test code = 4544-3) 35.9 34.2-44.1 [facility] CenterMean Corpuscular Coevnn5306-40-38 06:08:00* Test Item Value Reference Range Interpretation Comments Mean Corpuscular Volume (test code = 787-2) 85.7 81-99 [facility] CenterMean Corpuscular Eyekagvbwa9069-00-18 06:08:00* Test Item Value Reference Range Interpretation Comments Mean Corpuscular Hemoglobin (test code = 785-6) 27.9 28-32 L [facility] CenterMean Corpuscular Hemoglobin Concent 2019-12-25 06:08:00* Test Item Value Reference Range Interpretation Comments Mean Corpuscular Hemoglobin Concent (test code = 786-4) 32.6 31-35 [facility] CenterRed Cell Distribution Rojla7661-99-37 06:08:00* Test Item Value Reference Range Interpretation Comments Red Cell Distribution Width (test code = 84486-8) 13.4 11.7 -14.4 [facility] CenterPlatelet Hvbni5883-55-63 06:08:00* Test Item Value Reference Range Interpretation Comments Platelet Count (test code = 777-3) 157 140-360 [facility] CenterNeutrophils (%) (Auto)2019-12-25 06:08:00 * Test Item Value Reference Range Interpretation Comments Neutrophils (%) (Auto) (test code = 12723-6) 69.8 38.7-80.0 [facility] CenterLymphocytes (%) (Auto)2019-12-25 06:08:00 * Test Item Value Reference Range Interpretation Comments Lymphocytes (%) (Auto) (test code = 736-9) 15.2 18.0-39.1 L [facility] CenterMonocytes (%) (Auto)2019-12-25 06:08:00* Test Item Value Reference Range Interpretation Comments Monocytes (%) (Auto) (test code = 5905-5) 9.8 4.4-11.3 [facility] CenterEosinophils (%) (Auto)2019-12-25 06:08:00 * Test Item Value Reference Range Interpretation Comments Eosinophils (%) (Auto) (test code = 713-8) 2.9 0.0-6.0 [facility] CenterBasophils (%) (Auto)2019-12-25 06:08:00* Test Item Value Reference Range Interpretation Comments Basophils (%) (Auto) (test code = 706-2) 0.3 0.0-1.0 [facility] CenterIM GRANULOCYTES %2019-12-25 06:08:00* Test Item Value Reference Range Interpretation Comments IM GRANULOCYTES % (test code = IM GRANULOCYTES %) 2.0 0.0- 1.0 H [facility] CenterNeutrophils # (Auto)2019-12-25 06:08:00* Test Item Value Reference Range Interpretation Comments Neutrophils # (Auto) (test code = 751-8) 2.4 2.1-6.9 [facility] CenterLymphocytes # (Auto)2019-12-25 06:08:00* Test Item Value Reference Range Interpretation Comments Lymphocytes # (Auto) (test code = 70738-3) 0.5 1.0-3.2 L [facility] CenterMonocytes # (Auto)2019-12-25 06:08:00* Test Item Value Reference Range Interpretation Comments Monocytes # (Auto) (test code = 742-7) 0.3 0.2-0.8 [facility] CenterEosinophils # (Auto)2019-12-25 06:08:00* Test Item Value Reference Range Interpretation Comments Eosinophils # (Auto) (test code = 711-2) 0.1 0.0-0.4 [facility] CenterBasophils # (Auto)2019-12-25 06:08:00* Test Item Value Reference Range Interpretation Comments Basophils # (Auto) (test code = 704-7) 0.0 0.0-0.1 [facility] CenterAbsolute Immature Granulocyte (auto 2019-12-25 06:08:00* Test Item Value Reference Range Interpretation Comments Absolute Immature Granulocyte (auto (margo t code = Absolute Immature Granulocyte (auto) 0.07 0-0.1 [facility] CenterCHEST 2 YKFUA6545-70-00 17:16:00 [place] [address] Patient Name: JAZMINE NEWMAN MR #: [id number] : 1950 Age/Sex: 69/F Req #: [id number] Adm Physician: GONZALO RODRÍGUEZ MD Ordered by: NEYMAR MARTIN MD Report #: [id number] [facility] Procedure: [id number] D X/CHEST 2 VIEWS Exam Date: 12/24/19 Exam Time: 1710 REPORT STATUS: Signed EXAMINATIO N: CHEST 2 VIEWS INDICATION: Pneumonia COMPARISON: Chest CT 020 FINDINGS: LINES/TUBES:None LUNGS:The lungs are hyperinfl ated. Bilateral upper lobe predominant emphysematous changes. Mild patchy biba silar opacities. PLEURA:No pleural effusion or pneumothorax. MEDIASTIN UM:The cardiomediastinal silhouette appears unchanged in size and shape. BONES/SOFT TISSUES:No acute osseous injury. ABDOMEN:No free air under the d iaphragm. IMPRESSION: Hyperinflated lungs with mild patchy bibasilar opacities, possibly representing aspiration or pneumonia in the proper clinica l setting. Signed by: Rosio Peñaloza MD on 12/24/2019 5:22 PM Dictated By : ROSIO PEÑALOZA MD 21 Trans cribed By: RAYMUNDO on 12/24/191721 COPY TO: NEYMAR MARTIN MD Urine Legionella Lgrkoli4465-16-20 16:10:00* Test Item Value Reference Range Interpretation Comments Urine Legionella Antigen (test code = 44501-8) Negative Negativ e Presumptive negative for L. pneumophila serogroup 1 antigenin urine, suggesting no recent or current infection.Legionnaires' disease cannot be ruled out since o therserogroups and species may also cause disease.Performed at: [facility] [address] [place], [place] [id number] Director: Ramses Camacho MD, Phone: [phone] Regional Medical CenterUrine Legionella Dhjvfct5919-18-18 16:10:00* Test Item Value Reference Range Interpretation Comments Urine Legionella Antigen (test code = 77042-0) Negative Negativ e Presumptive negative for L. pneumophila serogroup 1 antigenin urine, suggesting no recent or current infection.Legionnaires' disease cannot be ruled out since o therserogroups and species may also cause disease.Performed at: [facility] [address] [place], [place] [id number] Director: Ramses Camacho MD, Phone: [phone] Regional Medical CenterBlood Culture 2019-12-24 14:03:00* Test Item Value Reference Range Interpretation Comments Blood Culture (test code = 28337329) NO GROWTH AFTER 5 DAYS, FINAL REPORT [facility] CenterBlood Wkreutc3151-89-64 14:03:00* Test Item Value Reference Range Interpretation Comments Blood Culture (test code = 12894413) NO GROWTH AFTER 5 DAYS, FINAL REPORT [facility] CenterVitamin B12 Apltz4368-11-31 10:27:00* Test Item Value Reference Range Interpretation Comments Vitamin B12 Level (test code = 50980-3) 769 213-816 [facility] CenterVitamin B12 Krdfu3840-87-99 10:27:00* Test Item Value Reference Range Interpretation Comments Vitamin B12 Level (test code = 57000-7) 769 213-816 [facility] CenterFerritin2020-03-04 10:16:00* Test Item Value Reference Range Interpretation Comments Ferritin (test code = 2276-4) 203.11 4.63-204.00 [facility] CenterFerritin2020-03-04 10:16:00* Test Item Value Reference Range Interpretation Comments Ferritin (test code = 2276-4) 203.11 4.63-204.00 [facility] CenterPhosphorus Dluah3102-65-04 04:30:00* Test Item Value Reference Range Interpretation Comments Phosphorus Level (test code = CIE7160) 3.5 2.3-4.7 [facility] CenterPhosphorus Hgqsc2183-74-29 04:30:00* Test Item Value Reference Range Interpretation Comments Phosphorus Level (test code = ZAY6372) 3.5 2.3-4.7 [facility] CenterMagnesium Frdon5071-40-28 04:13:00* Test Item Value Reference Range Interpretation Comments Magnesium Level (test code = 83163-3) 1.9 1.3-2.1 [facility] CenterMagnesium Udqsc3736-44-43 04:13:00* Test Item Value Reference Range Interpretation Comments Magnesium Level (test code = 97305-9) 1.9 1.3-2.1 [facility] CenterTotal Ezvreglyp2450-89-30 06:09:00* Test Item Value Reference Range Interpretation Comments Total Bilirubin (test code = 1975-2) 0.5 0.2-1.2 [facility] CenterAspartate Amino Transf (AST/SGOT) 2019-12-23 06:09:00* Test Item Value Reference Range Interpretation Comments Aspartate Amino Transf (AST/SGOT) (test code = Aspartate Amino Transf (AST/SGOT)) 29 34 [facility] CenterAlanine Aminotransferase (ALT/SGPT) 2019-12-23 06:09:00* Test Item Value Reference Range Interpretation Comments Alanine Aminotransferase (ALT/SGPT) (test code = 1742-6) 17 0-55 [facility] CenterTotal Xoawncc0173-39-66 06:09:00* Test Item Value Reference Range Interpretation Comments Total Protein (test code = 2885-2) 5.8 6.5-8.1 L [facility] CenterAlbumin2020-03-03 06:09:00* Test Item Value Reference Range Interpretation Comments Albumin (test code = 1751-7) 2.9 3.5-5.0 L [facility] CenterGlobulin2020-03-03 06:09:00* Test Item Value Reference Range Interpretation Comments Globulin (test code = 10601-4) 2.9 2.3-3.5 [facility] CenterAlbumin/Globulin Evwug1611-60-99 06:09:00 * Test Item Value Reference Range Interpretation Comments Albumin/Globulin Ratio (test code = 1759-0) 1.0 0.8-2.0 [facility] CenterAlkaline Lvcvzxzcnmp6646-43-05 06:09:00* Test Item Value Reference Range Interpretation Comments Alkaline Phosphatase (test code = 6768-6) 107 40-150 [facility] CenterTotal Xucrhwcpz0098-26-73 06:09:00* Test Item Value Reference Range Interpretation Comments Total Bilirubin (test code = 1975-2) 0.5 0.2-1.2 [facility] CenterAspartate Amino Transf (AST/SGOT) 2019-12-23 06:09:00* Test Item Value Reference Range Interpretation Comments Aspartate Amino Transf (AST/SGOT) (test code = Aspartate Amino Transf (AST/SGOT)) 29 5-34 [facility] CenterAlanine Aminotransferase (ALT/SGPT) 2019-12-23 06:09:00* Test Item Value Reference Range Interpretation Comments Alanine Aminotransferase (ALT/SGPT) (test code = 1742-6) 17 0-55 [facility] CenterTotal Ydrqazf1423-70-49 06:09:00* Test Item Value Reference Range Interpretation Comments Total Protein (test code = 2885-2) 5.8 6.5-8.1 L [facility] CenterAlbumin2020-03-03 06:09:00* Test Item Value Reference Range Interpretation Comments Albumin (test code = 1751-7) 2.9 3.5-5.0 L [facility] CenterGlobulin2020-03-03 06:09:00* Test Item Value Reference Range Interpretation Comments Globulin (test code = 81485-7) 2.9 2.3-3.5 [facility] CenterAlbumin/Globulin Guysw8035-52-41 06:09:00 * Test Item Value Reference Range Interpretation Comments Albumin/Globulin Ratio (test code = 1759-0) 1.0 0.8-2.0 [facility] CenterAlkaline Chroafwcizu1851-75-16 06:09:00* Test Item Value Reference Range Interpretation Comments Alkaline Phosphatase (test code = 6768-6) 107 40-[address] [facility] L[facility] AP LATERAL 0-6NCV4229-803EYK7787-05-43 15:25:00 [facility] [address] [place] [address] Patient Name: JAZMINE NEWMAN MR #: [id number] : 1950 Age/Sex: 69/F Req #: [id number] Adm Physician: GONZALO RODRÍGUEZ MD Ordered by: NEYMAR MARTIN MD Report #: [id number] Location: MED/[facility]3 Room/Bed: [facility] Procedure: [id number] D X/SP LUMBAR AP LATERAL 2-3VWS Exam Date: 12/22/19 Exam Time: 1500 REPORT STATUS: Sign ed Lumbar spine, 3 views Clinical indication: Lumbar spine pain Com parison: 08/18/2019. Findings: The lumbar vertebral body heights are well -maintained. There is minimal decreased height of the anterior aspect of the L 4 vertebral body which is unchanged when compared to radiographs dated 019. The disc spaces are preserved. There is no evidence of acute fracture or subluxation. There are hypertrophic degenerative facet changes at L5-S1. No ev idence of spondylolisthesis. The abdominal aorta demonstrates atherosclerotic calcifications. Impression: No radiographic evidence of acute osseous abnormalities of the lumbar spine. Signed by: Navi Garcia MD on 020 3:29 PM Dictated By: NAVI GARCIA MD 1529 Transcribed By: RAYMUNDO on 12/22/19 1529 COPY TO: NEYMAR MARTIN MD CT CHEST A9962-02-21 12:57:00 [place] [address] Patient Name: JAZMINE NEWMAN MR #: [id number] : 1950 Age/Sex: 69/F Req #: [id number] Adm Physician: GONZALO RODRÍGUEZ MD Ordered by: NEYMAR MARTIN MD Report #: [id number] Location: MED/SUR[facility]3 Room/Bed: [facility] Procedure: [id number] C T/CT CHEST W Exam Date: Exam Time: REPORT STATUS: Signed EXAMINATION: CT scan of t he chest with contrast. TECHNIQUE: Helical CT images of the chest were per formed from the lung apices to the level of the adrenal glands after the intra venous administration of 100 cc of Omnipaque 300. Coronal and sagittal reform atted images were obtained.Dose modulation, iterative reconstruction, and/or w eight based adjustment of the mA/kV was utilized to reduce the radiation dose to as low as reasonably achievable. COMPARISON: None. CLINICAL HIST ORY:Community-acquired pneumonia DISCUSSION: LINES/TUBES: None. LUNGS AND AIRWAYS: Interstitial thickening and groundglass and nodular change throughout the lungs, most prominent superior aspect of the lower lobes. PLEURA: Small bilateral pleural effusions. HEART AND MEDIASTINUM: The t hyroid gland is normal. The heart and pericardium are within normal limits. LYMPH NODES: No mediastinal, hilar or axillary lymphadenopathy. ABDOME N: Limited contrast-enhanced views of the upper abdomen show no abnormality wi thin the visualized liver, spleen, pancreas, or kidneys. The adrenal glands ar e normal. BONES AND SOFT TISSUES: No acute bony abnormalities. IMPRESS ION: Multifocal pneumonia. Signed by: Dr. Cristiane Pimentel M.D. on 12/20 1:26 PM Dictated By: CRISTIANE PIMENTEL MD 1326 Transcribed By: RAYMUNDO on 12/21/19 1326 COPY TO: NEYMAR MARTIN MD B-Type Natriuretic Khgvlkk7072-25-26 12:39:00* Test Item Value Reference Range Interpretation Comments B-Type Natriuretic Peptide (test code = 80566-8) 584.6 0-100 H [facility] CenterB-Type Natriuretic Dxfmked4895-80-99 12:39:00* Test Item Value Reference Range Interpretation Comments B-Type Natriuretic Peptide (test code = 10175-7) 584.6 0-100 H [facility] CenterCreatine Emyafk4908-70-97 04:23:00* Test Item Value Reference Range Interpretation Comments Creatine Kinase (test code = 2157-6) 356 29-168 H [facility] CenterCreatine Hofubs9646-84-88 04:23:00* Test Item Value Reference Range Interpretation Comments Creatine Kinase (test code = 2157-6) 356 29-168 H [facility] CenterCreatine Kinase EV6038-40-47 04:28:00* Test Item Value Reference Range Interpretation Comments Creatine Kinase MB (test code = 96829-1) 5.70 0-5.0 H [facility] CenterTroponin P8627-65-32 04:28:00* Test Item Value Reference Range Interpretation Comments Troponin I (test code = FPT7475) 0.001 0-0.300 [facility] CenterCreatine Kinase AB4347-26-17 04:28:00* Test Item Value Reference Range Interpretation Comments Creatine Kinase MB (test code = 16166-6) 5.70 0-5.0 H [facility] CenterTrmadel[facility] Y1813-86-43 04:28:00* Test Item Value Reference Range Interpretation Comments Troponin I (test code = PFQ0629) 0.001 0-0.300 [facility] CenterDifferential Total Cells Counted 2019-12-19 20:59:00* Test Item Value Reference Range Interpretation Comments Differential Total Cells Counted (test code = Stephy tial Total Cells Counted) 100 [facility] CenterNeutrophils % (Manual)2019-12-19 20:59:00 * Test Item Value Reference Range Interpretation Comments Neutrophils % (Manual) (test code = 18265-6) 84 40-74 H [facility] CenterBand Neutrophils %2019-12-19 20:59:00* Test Item Value Reference Range Interpretation Comments Band Neutrophils % (test code = 764-1) 3 [facility] CenterLymphocytes % (Manual)2019-12-19 20:59:00 * Test Item Value Reference Range Interpretation Comments Lymphocytes % (Manual) (test code = 737-7) 10 19-48 L [facility] CenterMonocytes % (Manual)2019-12-19 20:59:00* Test Item Value Reference Range Interpretation Comments Monocytes % (Manual) (test code = 744-3) 2 3.4-9.0 L [facility] CenterMyelocytes %2019-12-19 20:59:00* Test Item Value Reference Range Interpretation Comments Myelocytes % (test code = 749-2) 1 0-0 H [facility] CenterPlatelet Ruomnymd4040-52-54 20:59:00* Test Item Value Reference Range Interpretation Comments Platelet Estimate (test code = 88927-9) SLIGHTLY DECREASED [facility] CenterPlatelet Morphology Xknwith1950 20:59:00* Test Item Value Reference Range Interpretation Comments Platelet Morphology Comment (test code = 12278-3) NORMAL [facility] CenterHypochromasia2020-02-28 20:59:00* Test Item Value Reference Range Interpretation Comments Hypochromasia (test code = 728-6) SLIGHT [facility] CenterRed Cell Morphology Avvdfga1677-77-90 20:59:00* Test Item Value Reference Range Interpretation Comments Red Cell Morphology Comment (test code = 6742-1) NORMAL [facility] CenterDifferential Total Cells Counted 2019-12-19 20:59:00* Test Item Value Reference Range Interpretation Comments Differential Total Cells Counted (test code = Differen tial Total Cells Counted) 100 [facility] CenterNeutrophils % (Manual)2019-12-19 20:59:00 * Test Item Value Reference Range Interpretation Comments Neutrophils % (Manual) (test code = 21312-1) 84 40-74 H [facility] CenterBand Neutrophils %2019-12-19 20:59:00* Test Item Value Reference Range Interpretation Comments Band Neutrophils % (test code = 764-1) 3 [facility] CenterLymphocytes % (Manual)2019-12-19 20:59:00 * Test Item Value Reference Range Interpretation Comments Lymphocytes % (Manual) (test code = 737-7) 10 19-48 L [facility] CenterMonocytes % (Manual)2019-12-19 20:59:00* Test Item Value Reference Range Interpretation Comments Monocytes % (Manual) (test code = 744-3) 2 3.4-9.0 L [facility] CenterMyelocytes %2019-12-19 20:59:00* Test Item Value Reference Range Interpretation Comments Myelocytes % (test code = 749-2) 1 0-0 H [facility] CenterPlatelet Sanvkvac7687-43-21 20:59:00* Test Item Value Reference Range Interpretation Comments Platelet Estimate (test code = 03343-0) SLIGHTLY DECREASED [facility] CenterPlatelet Morphology Wybbpmv9586-30-71 20:59:00* Test Item Value Reference Range Interpretation Comments Platelet Morphology Comment (test code = 50451-9) NORMAL [facility] CenterHypochromasia2020-02-28 20:59:00* Test Item Value Reference Range Interpretation Comments Hypochromasia (test code = 728-6) SLIGHT [facility] CenterRed Cell Morphology Xdngete2899-27-45 20:59:00* Test Item Value Reference Range Interpretation Comments Red Cell Morphology Comment (test code = 6742-1) NORMAL [facility] CenterGroup A Streptococcus Rkupaj1289-00-99 19:01:00* Test Item Value Reference Range Interpretation Comments Group A Streptococcus Screen (test code = 65154-8) NEGATIVE NEG ATIVE [facility] CenterGroup A Streptococcus Tzzhke8785-75-89 19:01:00* Test Item Value Reference Range Interpretation Comments Group A Streptococcus Screen (test code = 11070-4) NEGATIVE NEG ATIVE [facility] CenterThyroid Stimulating Hormone (TSH) 2019-12-19 19:00:00* Test Item Value Reference Range Interpretation Comments Thyroid Stimulating Hormone (TSH) (test code = 81997-3) 0.570 0.350-4.940 [facility] CenterThyroid Stimulating Hormone (TSH) 2019-12-19 19:00:00* Test Item Value Reference Range Interpretation Comments Thyroid Stimulating Hormone (TSH) (test code = 91884-0) 0.570 0.350-4.940 [facility] CenterInfluenza Virus Types A,B Antigen 2019-12-19 18:54:00* Test Item Value Reference Range Interpretation Comments Influenza Virus Types A,B Antigen (test code = 94861-9) NEGATIVE NEGATIVE [facility] CenterInfluenza Virus Types A,B Antigen 2019-12-19 18:54:00* Test Item Value Reference Range Interpretation Comments Influenza Virus Types A,B Antigen (test code = 06526-3) NEGATIVE NEGATIVE [facility] CenterHemoglobin A1c Cptdrwy8577-45-22 18:30:00 * Test Item Value Reference Range Interpretation Comments Hemoglobin A1c Percent (test code = Hemoglobin A1c Percent) 6.4 4.0-7.0 [facility] CenterHemoglobin A1c Bimccro1998-41-79 18:30:00 * Test Item Value Reference Range Interpretation Comments Hemoglobin A1c Percent (test code = Hemoglobin A1c Percent) 6.4 4.0-7.0 [facility] CenterCXR 2 VIEW - MXVO9818-48-28 11:13:00 [facility] [address] [place] [address] Patient Name: JAZMINE NEWMAN MR #: [id number] : 1950 Age/Sex: 69/F Req #: [id number] Adm Physician: Ordered by: ROBBY VALDIVIA MD Report #: [id number] Location: [facility] Room/Bed: Procedure: [id number] H OPD/CXR 2 VIEW - HOPD Exam Date: 12/19/19 Exam Time: 1047 REPORT STATUS: Signed EXAM INATION: CXR 2 VIEW - HOPD INDICATION: Cough COMPARISON: Chest ra diograph of 10/06/2019 FINDINGS: LINES/TUBES:None LUNGS:The l ungs are well-inflated. New mild patchy opacities at the right midlung along t he minor fissure. Mild biapical pleural parenchymal thickening/scarring. PLEURA:No pleural effusion or pneumothorax. MEDIASTINUM:The cardiomediastin al silhouette appears unchanged in size and shape. Atherosclerotic calcificati ons of the thoracic aorta. BONES/SOFT TISSUES:No acute osseous injury. ABDOMEN:No free air under the diaphragm. IMPRESSION: New mild patchy opacities at the right midlung, possibly representing aspiration and/or pneum onia in the proper clinical setting. RECOMMENDATIONS: Follow-up PA and la teral chest radiograph in 6-8 weeks following treatment to assess for resoluti on. Signed by: Rosio Peñaloza MD on 12/19/2019 11:15 AM Dictated By: SHANNON PEÑALOZA MD 14 Transcribe d By: RAYMUNDO on 12/19/195 COPY TO: ROBBY VALDIVIA MD US LOW EXT VEINS LIMITED WES4216-83-27 22:20:00 [place] [address] Patient Name: JAZMINE NEWMAN MR #: [id number] : 1950 Age/Sex: 69/F Req #: [id number] Adm Physician: Ordered by: SYLVIA HAN MD Report #: [id number] Location: [facility] Room/Bed: Procedure: [id number] 1 HOPD/US LOW EXT VEINS LIMITED UNI Exam Date: 08/18/19 Exam Time: 2049 REPORT STATUS: Signed EXAM: Left Lower Extremity Venous Duplex Ultrasound INDICATION: Le ft leg pain COMPARISON: None TECHNIQUE: Velazco scale, color Doppler and sp ectral waveform analysis of the left lower extremity deep venous system was pe rformed. FINDINGS: Common Femoral: Fully compressible with norm al spontaneous waveforms. Proximal Greater Saphenous: Fully stephie sible. Femoral: Fully compressible with normal spontaneous wavefor ms. Normal response to augmentation. Proximal Deep Femoral: Not evaluate d. Popliteal: Fully compressible with normal spontaneous wavefo janae. IMPRESSION: No evidence of deep venous thrombosis above th e left calf. Signed by: Sae Seaman DO on 08/18/2019 10:22 PM D ictated By: SAE SEAMAN DO 21 COPY TO: SYLVIA UNDERWOOD MD T SPINE 2VW - JEEU2165-06-45 22:11:00 [place] [address] Patient Name: JAZMINE NEWMAN MR #: [id number] : 1950 Age/Sex: 69/F Req #: [id number] Adm Physician: Ordered by: SYLVIA HAN MD Report #: [id number] Location: [facility] Room/Bed: Procedure: [id number] 9 HOPD/T SPINE 2VW - HOPD Exam Date: 08/18/19 Exam T arvind: 2039 REPORT STATUS: Signed X-RAY THORACIC SPINE - 3 VIEWS X-RAY LUMBAR SPINE - 3 VIEWS HISTORY: Pa in. COMPARISON: Cervical spine CT 08/18/2019 DISCUSSION: Thoraci c spine: Multilevel disc osteophytes in the cervical spine. Decreased dis c height at C5-C6 with posterior disc osteophytes. Partially visualized sclero tic facet arthropathy in the mid to lower cervical spine. The included in trathoracic structures are unremarkable. Normal kyphosis. The disc heights, ve rtebral bodies, and alignment are normal. No obvious displaced rib fractures. The facets are unremarkable. Lumbar spine: Some of the osseous struc tures are partially obscured by stool and bowel gas. Transitional isidoro noble in the lower lumbar spine, with partial lumbarization of S1 vertebral bod y with pseudoarthrosis of right S1 transverse process with right sacral ala, w here there is degenerative changes. Suspect low bone mineral density. Minimal decreased vertebral body height at the right anterior aspect of L4 vivi tebral body where there is sclerosis and anterior osteophytes. The alignmen t of the spine is within normal limits. No displaced fracture or compression d eformity is identified. Disc Spaces: The disc spaces are well maintained. Mild decreased disc height at L2-L3 where there are disc osteophytes. Fa cets: Sclerotic facet arthropathy at the lower lumbar spine. Calcificati ons of the abdominal aorta. IMPRESSION: 1. No acute radiographic osse ous abnormality in the thoracic or lumbar spine. 2. Degenerative changes thro ughout the spine, worst in the cervical spine, and in the lower lumbar spine. 3. Minimal decreased vertebral body height at right anterior aspect of L4 c ould be due is favored to be due to degenerative changes, although a remote mi nimal compression injury is possible. 4. Transitional anatomy in the lower ely mbar spine, with partial lumbarization of S1 vertebral body, with pseudoarthro sis of right S1 transverse process with right sacral ala, where there is degen erative changes. 5. Suspect low bone mineral density. Signed by: Sae Seaman DO on 08/18/2019 10:20 PM Dictated By: SAE SEAMAN DO Elec tronically Signed By: SAE SEAMAN DO on 08/18/192219 Transcribed By: [facility] RAN on 08/18/192219 COPY TO: SYLVIA HAN MD L SPINE 2-3 WS - [id number] 22:11:00 [place] [address] Patient Name: JAZMINE NEWMAN MR #: [id number] : 1950 Age/Sex: 69/F Req #: [id number] Adm Physician: Ordered by: SYLVIA HAN MD Report #: [id number] Location: [facility] Room/Bed: Procedure: 1028-001 8 HOPD/L SPINE 2-3 VEWS - HOPD Exam Date: 08/18/19 E xam Time: 2029 REPORT STATUS: Whit d X-RAY THORACIC SPINE - 3 VIEWS X-RAY LUMBAR SPINE - 3 VIEWS HISTORY : Pain. COMPARISON: Cervical spine CT 08/18/2019 DISCUSSION: Th oracic spine: Multilevel disc osteophytes in the cervical spine. Decrease d disc height at C5-C6 with posterior disc osteophytes. Partially visualized s clerotic facet arthropathy in the mid to lower cervical spine. The includ ed intrathoracic structures are unremarkable. Normal kyphosis. The disc height s, vertebral bodies, and alignment are normal. No obvious displaced rib fractu res. The facets are unremarkable. Lumbar spine: Some of the osseous structures are partially obscured by stool and bowel gas. Transitiona l anatomy in the lower lumbar spine, with partial lumbarization of S1 vertebra l body with pseudoarthrosis of right S1 transverse process with right sacral a la, where there is degenerative changes. Suspect low bone mineral density. Minimal decreased vertebral body height at the right anterior aspect of L4 vertebral body where there is sclerosis and anterior osteophytes. The ali gnment of the spine is within normal limits. No displaced fracture or compress ion deformity is identified. Disc Spaces: The disc spaces are well mainta ined. Mild decreased disc height at L2-L3 where there are disc osteophytes. Facets: Sclerotic facet arthropathy at the lower lumbar spine. Calcif ications of the abdominal aorta. IMPRESSION: 1. No acute radiographic osseous abnormality in the thoracic or lumbar spine. 2. Degenerative changes throughout the spine, worst in the cervical spine, and in the lower lumbar sp ine. 3. Minimal decreased vertebral body height at right anterior aspect of L 4 could be due is favored to be due to degenerative changes, although a remote minimal compression injury is possible. 4. Transitional anatomy in the low er lumbar spine, with partial lumbarization of S1 vertebral body, with pseudoa rthrosis of right S1 transverse process with right sacral ala, where there is degenerative changes. 5. Suspect low bone mineral density. Signed by: Keyla Seaman DO on 08/18/2019 10:20 PM Dictated By: SAE SEAMAN DO 19 Transcribed By: RAYMUNDO on 08/18/192219 COPY TO: SYLVIA HAN MD [id number] 22:09:00 [place] [address] Patient Name: JAZMIEN NEWMAN MR #: [id number] : 1950 Age/Sex: 69/F Req #: [id number] Adm Physician: Ordered by: SYLVIA HAN MD Report #: [id number] Location: [facility] Room/Bed: Procedure: 1028-001 7 [facility] Ex[facility] Date: 08/18/19 Exam Time: 2024 REPORT STATUS: Signed X-ray left hip 2 views HISTORY: Pain. COMPARISON: None available. FINDINGS: Bones: No acute displaced fracture. Osseous alignment is within normal limits. Joints: Subtle subchondral sclerosis left about the acetabulum with subtle joint space loss at the superior aspect. No dislo cations. Soft tissues: Tiny calcifications likely within the left gluteal subcutaneous adipose consistent with tiny fat granulomas. IMPRESSION: No acute radiographic abnormality. Minimal degenerative changes in the left hip. Signed by: Sae Seaman DO on 08/18/2019 10:11 PM Dictated By: SAE SEAMAN DO 10 COPY TO: MARIBEL HAN MD CXR 2 VIEW - [id number] 21:58:00 [place] [address] Patient Name: JAZMINE NEWMAN MR #: [id number] : 1950 Age/Sex: 69/F Req #: [id number] Adm Physician: Ordered by: SYLVIA HAN MD Report #: [id number] Location: ED Room/Bed: Procedure: 1028-001 6 HOPD/CXR 2 VIEW - HOPD Exam Date: 08/18/19 Exam Ti me: 2019 REPORT STATUS: Signed E XAMINATION: CXR 2 VIEW - HOPD INDICATION: Upper back pain, left should er pain COMPARISON: Chest radiograph 01/21/2019 FINDINGS: TUBE S and LINES: None. LUNGS: Lungs are well inflated. Lungs are clear. The re is no evidence of pneumonia or pulmonary edema. Mild obscuration of the mid left hemidiaphragm and distal left cardiac border is likely due to pericardial fat. PLEURA: No pleural effusion or pneumothorax. HEART AND MEDIAST INUM: The cardiomediastinal silhouette is unremarkable. Aortic arch calcifica tions. BONES AND SOFT TISSUES: No acute osseous lesion. Soft tissues are unremarkable. Mild degenerative changes in the spine. UPPER ABDOMEN: No f ree air under the diaphragm. IMPRESSION: No acute thoracic radiog raphic abnormality. Signed by: Sae Seaman DO on 08/18/2019 10:00 PM Dictated By: SAE SEAMAN DO 99 Transcribed By: RAYMUNDO on 08/18/192199 COPY TO: SYLVIA HAN MD CT C-SPINE W/O - [id number] 21:21:00 [place] [id number] [place] [id number] Patient Name: JAZMINE NEWMAN MR #: [id number] : 1950 Age/Sex: 69/F Req #: [id number] Adm Physician: Ordered by: SYLVIA HAN MD Report #: [id number] Location: [facility] Room/Bed: Procedure: 1028-002 0 HOPD/CT C-SPINE W/O - HOPD Exam Date: 08/18/19 Good Time: 2014 REPORT STATUS: Signed History: Left-sided neck pain and left upper extremity pain. Comparison studies: None Technique: Axial images were obtained through the cervical region.. Coronal and sagittal images reconstructed from the axial data. Dose modulation, iterative reconstruction, and/or weight based adjustment of the mA/kV was utilized to reduce the radiation dose to as low as reasonably achiev able. Intravenous contrast: None Findings: Fractures: None. Sof t tissue injuries: None. Atlantoaxial articulation: Intact. Alignment: Lo ss of normal cervical lordosis is either positional or due to muscle spasm. No scoliosis. Cervicomedullary junction: No abnormalities. The foramen magnum is patent. Soft tissues: No abnormalities. Vertebrae: No fractures, inf ection or neoplasm. Degenerative changes: C3-C4: Mild left foraminal jennifer nosis due to facet arthrosis. C4-C5: Mild left foraminal stenosis due to facet and uncovertebral arthrosis. Posterior disc osteophyte complex results in mild canal stenosis. C5-C6: Mild right and moderate left foraminal stenosis due to facet and uncovertebral arthrosis. C6-C7: Mild right and severe left bandar inal stenosis due to uncovertebral arthrosis.. IMPRESSION: 1. No ac mentasta cervical spine fracture or dislocation. Loss of normal cervical lordosis i s either positional or due to muscle spasm. 2. Ligament, spinal cord and o r vascular abnormalities cannot be excluded on the basis of this examination. 3. Multilevel cervical spondylosis, results in mild canal stenosis at C4-C 5. Multilevel foraminal stenosis, particularly mild left at C3-C4, C4-C5, mild right and moderate left at C5-C6 and mild right and severe left at C6-C7. Signed by: Dr. Elba Ortega M.D. on 08/18/2019 9:28 PM Dictated By: ELBA ORTEGA MD 27 Transcribed By: RAYMUNDO on 08/18/192127 COPY TO: SYLVIA HAN MD CXR 2 VIEW - [id number] 21:32:00 [place] [address] Patient Name: JAZMINE NEWMAN MR #: [id number] : 1950 Age/Sex: 68/F Req #: [id number] Adm Physician: Ordered by: SYLVIA HAN MD Report #: [id number] Location: [facility] Room/Bed: Procedure: 0402-001 1 HOPD/CXR 2 VIEW - HOPD Exam Date: Exam Time: REPORT STATUS: Signed EXAMINATIO N: PA and lateral views of the chest. COMPARISON: None CLINICAL HISTOR Y: Altered mental status DISCUSSION: Lines/tubes: None. Ely ngs: The lungs are well inflated and clear. No pneumonia or pulmonary edema. Pleura: No pleural effusion or pneumothorax. Heart and mediastinum: The cardiomediastinal silhouette is normal. Bones and soft tissues: No acute bony abnormalities. IMPRESSION: No acute cardiopulmonary abnormali ties. (Delay in report secondary to not populating on the radiology work li st) Signed by: Dr. Cristiane Pimentel M.D. on 01/21/2019 9:33 PM Di ctated By: CRISTIANE PIMENTEL MD 32 Transcribed By: RAYMUNDO on 01/21/192132 COPY TO: SYLVIA CERDA MD CT BRAIN [id number] 21:07:00 [place] [address] Patient Name: JAZMINE NEWMAN MR #: [id number] : 1950 Age/Sex: 68/F Req #: [id number] Adm Physician: Ordered by: SYLVIA HAN MD Report #: [id number] Location: [facility] Room/Bed: Procedure: 0402-001 2 HOPD/CT BRAIN WO-HOPD Exam Date: Exam Time: REPORT STATUS: Signed EXAMINATION: H ead CT without contrast. HISTORY:Vertigo. COMPARISON:None. TECH NIQUE: Multidetector axial images were obtained from the foramen magnum to the vertex without contrast. The images were reconstructed using brain and bone a lgorithms. Thin section brain images were reformatted into coronal and sagitt al planes. Dose modulation, iterative reconstruction, and/or weight based adju stment of the mA/kV was utilized to reduce the radiation dose to as low as kelly sonably achievable. Intravenous contrast: None IMAGE QUALITY: Acce ptable. FINDINGS: Skull/scalp: No lytic or blastic. lesions. No surg ical changes. Parenchyma: Nonspecific few, scattered supratentorial white matter hypodensity are likely related to small vessel ischemic changes. No a cute hemorrhage, mass or acute major vascular territorial infarct. Arterie s: No density suggestive of thrombosis. Dural sinuses: No abnormal dens ity suggestive of thrombosis. Ventricles: No hydrocephalus or displacemen t. Extra-axial spaces: No abnormal density. Brain volume: Normal f or age. Craniocervical junction: No mass, Chiari malformation, or basilar invagination. Sella: No mass. Paranasal/mastoid sinuses: Imaged p ortions unremarkable. IMPRESSION: No acute intracranial abnormality. Minimal supratentorial white matter microvascular ischemic changes. Sig nabor by: Dr. Elba Oretga M.D. on 01/21/2019 9:11 PM Dictated By: LARISSA ORTEGA MD 10 Tra nscribed By: RAYMUNDO on 01/21/192110 COPY TO: SYLVIA HAN MD
[2020-06-10] MEDS ORDERED: TRAMADOL HCL 50 MG TAB PO PRN (11:30)
[2020-06-10 12:03] VITALS: BP 127/58
[2020-06-10 12:04] VITALS: BP 122/59
[2020-06-10] MEDS: OXYCODONE/ACETAMINOPHEN 5-325 1 EACH TABLET PO PRN (12:20)
[2020-06-10] MEDS: LACTATED RINGER'S 1,000 ML IV SCH ×2 (13:48→18:50)
[2020-06-10] MEDS: ONDANSETRON HCL INJ 2MG/ML 2ML 2 MG/ML VIAL IV PRN ×2 (13:55→20:43)
[2020-06-10] MEDS: HYDROMORPHONE 1MG/1ML INJ IV PRN ×2 (13:55→20:43)
--- NOTE | 2020-06-10 15:44 | Operative Report ---
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 POSTOPERATIVE DIAGNOSIS: C5-6 and C6-7 spondylosis with radiculopathy. PROCEDURES: 1. C5-6 anterior cervical diskectomy and microsurgical osteophyte resection and allograft fusion, 07763. 2. C6-C7 anterior cervical diskectomy and microsurgical osteophyte resection and allograft fusion, 20644. 3. Preparation of tricortical iliac crest allograft, 43194. 4. C5-C6 and C6-C7 anterior cervical plating with Synthes CSLP plate, 67419. ANESTHESIA: General. INDICATIONS: The patient is a 70-year-old woman who presents with C5-6 and C6-7 left-sided severe foraminal stenosis and spondylosis, symptomatic with chronic left-sided cervical radiculopathy. She was taken to surgery for two-level anterior cervical decompression and fusion. PROCEDURE IN DETAIL: After induction of general anesthesia, the patient was placed on the operating table in supine position. The left side of neck was prepped and draped in sterile fashion. The fluoroscopic C-arm was positioned in cross-table lateral orientation. A transverse incision was created on the right side of neck superimposed on the C6 vertebral body as determined by fluoroscopy. The platysma was divided in line with the incision. A subplatysmal dissection was carried out and avascular plane of dissection was developed and was followed medial to the sternocleidomastoid muscle and medial to the carotid sheath to the anterior border of the cervical spine. The deep cervical fascia was opened. The esophagus was retracted to the left. The attachments of longus colli muscles to the anterolateral aspects of vertebral bodies of C5, C6, and C7 were divided. The anterior longitudinal ligament was resected. [place] posts were inserted into C5 and C7 and [place] distractor was used to distract both disk spaces simultaneously. The anterior annuli of both disks were incised with a #11 blade and the contents of both disks were thoroughly evacuated with angled curettes and pituitary instruments. The posterior osteophytes were meticulously drilled with a 2 mm cutting bur on a high-speed drill until they were completely removed. The posterior annulus of the disk, herniated disk material, and the posterior longitudinal ligament were resected layer by layer until the dura was fully exposed and decompressed. On the left side marked hypertrophy of the uncinate processes produced severe left-sided foraminal stenosis at both levels. The medial aspect of the uncinate processes were resected with a combination of drilling and 1 mm Kerrison instruments until the origin of the left C6 and C7 nerve roots was fully exposed and decompressed. Meticulous hemostasis was secured. The endplates were prepared for fusion. Two pieces of tricortical iliac crest allograft were cut to size and shapes of the disk spaces and were inserted into the disk spaces under distraction and fluoroscopic guidance. The distraction was released and distraction posts were removed. A Synthes CSLP variable type anterior cervical plate measuring 34 mm in length was selected and was affixed to the vertebral bodies of C5, C6, and C7 with three pairs of 14 x 4.35 mm screws. All screw holes were drilled and tapped on the lateral fluoroscopic guidance. All screws were locked with the appropriate locking screws and excellent construct was obtained. The wound was copiously irrigated with bacitracin solution. Meticulous hemostasis was secured. Retractor was removed. The platysma was closed with 3-0 Vicryl sutures. The skin was closed with 4-0 Vicryl sutures in subcuticular fashion. Steri-Strips and dressing were applied. The patient was awakened, extubated, and taken to postanesthesia care in stable condition. No intraoperative complications were encountered. ESTIMATED BLOOD LOSS: 20 mL. Alvin Johnson MD PP/ELLEN /[id number]
[2020-06-10 15:56] VITALS: BP 109/54
[2020-06-10] MEDS: CEFAZOLIN SOD 1 GM/NS 50ML 50 ML IV SCH (17:00)
--- NOTE | 2020-06-10 19:00 | NUR ---
Resumed care of patient. Patient awake and resting in bed, no s/s of distress at this time. Bed locked and in lowest position, side rails upx3, call light placed within reach. All safety measures in place.
[2020-06-10] MEDS ORDERED: DEXAMETHASONE SOD PHOS INJ 4 MG/ML VIAL ONE ×2 (19:27)
[2020-06-10] MEDS ORDERED: ROCURONIUM BROMIDE 10 MG/ML 5ML VIAL IV ONE ×2 (19:27)
[2020-06-10] MEDS ORDERED: SEVOFLURANE INHAL SOLN 250 ML PEN BTL ONE (19:27)
[2020-06-10] MEDS ORDERED: MIDAZOLAM HCL 2 MG/2 ML VIAL ONE (19:27)
[2020-06-10] MEDS ORDERED: ONDANSETRON HCL INJ 2MG/ML 2ML 2 MG/ML VIAL ONE (19:27)
[2020-06-10] MEDS ORDERED: NEOSTIGMINE 1 MG/ML 10ML VIAL ONE (19:27)
[2020-06-10] MEDS ORDERED: FENTANYL CITRATE/PF 100MCG/2 ML INJ ONE (19:27)
[2020-06-10] MEDS ORDERED: LIDOCAINE HCL 2% JELLY 5 ML TUBE ONE (19:27)
[2020-06-10] MEDS ORDERED: GLYCOPYRROLATE INJ 0.2 MG/ML VIAL ONE (19:27)
[2020-06-10] MEDS ORDERED: PROPOFOL IV EMULSION 10 MG/ML 20 ML VIAL ONE (19:27)
[2020-06-10] MEDS ORDERED: LIDOCAINE HCL 2% LOCAL INJ 5 ML SDV VIAL INJ ONE (19:27)
[2020-06-10 20:00] VITALS: BP 140/74
[2020-06-10 20:53] VITALS: BP 140/74
[2020-06-10] MEDS ORDERED: DULOXETINE HCL 30 MG DELAYED RELEASE PO SCH (21:00)
[2020-06-10] MEDS ORDERED: NEBIVOLOL 10 MG TAB PO SCH (21:00)
[2020-06-10] MEDS ORDERED: BYSTOLIC 20 MG PO SCH (21:00)
[2020-06-10] MEDS ORDERED: CYMBALTA 60 MG PO SCH (21:00)
[2020-06-10] MEDS ORDERED: ZOLPIDEM TARTRATE 5 MG TAB PO PRN (21:00)
[2020-06-10] MEDS ORDERED: PANTOPRAZOLE 20 MG PO SCH (21:00)
[2020-06-10] MEDS ORDERED: PANTOPRAZOLE SOD 40 MG TABEC PO SCH (21:00)
[2020-06-10] MEDS ORDERED: AMLODIPINE BESYLATE 5 MG TAB PO SCH (21:00)
[2020-06-11] VITALS: BP 136/70
[2020-06-11] MEDS: CEFAZOLIN SOD 1 GM/NS 50ML 50 ML IV SCH ×2 (00:34→08:58)
[2020-06-11] MEDS: HYDROMORPHONE 1MG/1ML INJ IV PRN ×2 (00:39→06:44)
[2020-06-11] MEDS: LACTATED RINGER'S 1,000 ML IV SCH (02:26)
[2020-06-11 04:00] VITALS: BP 127/61
[2020-06-11] MEDS ORDERED: NORCO 7.5-3251 EACH PO ×2 (05:19→05:21)
--- NOTE | 2020-06-11 06:18 | NUR ---
Patient leaving unit via wheelchair for x-ray. In stable condition, no s/s of distress at this time.
--- NOTE | 2020-06-11 06:25 | NUR ---
Patient returned from x-ray. In stable condition, no s/s of distress at this time.
--- NOTE | 2020-06-11 06:40 | Diagnostic Imaging Report ---
X-ray C-spine 2 views HISTORY: Pain. COMPARISON: C-spine CT 08/18/2019. FINDINGS: Limited sensitivity for detection of subtle fractures and ligamentous abnormalities. On the lateral view, the cervical spine is visualized from the skull base to . The alignment is normal. No acute displaced fracture involving the visualized cervical spine. Fixation hardware from C5-C7. Screw implants in the mandible. Disc Spaces and Uncovertebral Joints: Degenerative changes. Fixation hardware C5-C7. Facets: Mild degenerative changes. IMPRESSION: No acute radiographic abnormality. Cervical spine degenerative changes, fixation hardware appears intact. Signed by: Sae Starks DO on 06/11/2020 6:36 AM
--- NOTE | 2020-06-11 07:00 | NUR ---
Bedside report given to oncoming nurse. Patient awake and resting in bed, no s/s of distress at this time. All safety measures in place.
--- NOTE | 2020-06-11 07:00 | NUR ---
BEDSIDE SHIFT REPORT RECEIVED FROM LANGUAGE [employer] TEACHER RN. PT DENIES NEEDS AT THIS TIME.
[2020-06-11 08:00] VITALS: BP 117/62
[2020-06-11 08:52] VITALS: BP 117/62
[2020-06-11] MEDS ORDERED: VIVISCAL PO SCH (09:00)
[2020-06-11] MEDS: OXYCODONE/ACETAMINOPHEN 5-325 1 EACH TABLET PO PRN (09:55)
--- NOTE | 2020-06-11 11:52 | NUR ---
PT WHEELED DOWN BY RN. [place]. PT DENIED FURTHER NEEDS.
== END 2020-06-11 11:50 | disposition home or self-care (01) ==
LOC: OR 05:58 → PACU V 10:19 → MED/SURG 11:14
PROVIDERS: ADMIT Neurological Surgery; ATTEND Neurological Surgery
DX: M47.22 Other spondylosis with radiculopathy, cervical region (principal); M48.02 Spinal stenosis, cervical region; M80.08XA Age-related osteoporosis with current pathological fracture, vertebra(e), initial encounter for fracture; I10 Essential (primary) hypertension; K44.9 Diaphragmatic hernia without obstruction or gangrene; M81.0 Age-related osteoporosis without current pathological fracture; M19.90 Unspecified osteoarthritis, unspecified site; Z87.891 Personal history of nicotine dependence; K21.9 Gastro-esophageal reflux disease without esophagitis; F41.9 Anxiety disorder, unspecified; Z11.59 Encounter for screening for other viral diseases; Z01.810 Encounter for preprocedural cardiovascular examination; Z01.812 Encounter for preprocedural laboratory examination; Z01.818 Encounter for other preprocedural examination
CPT/HCPCS: 20931; 22551; 22552; 22845; 36415; 71046; 72040; 80048; 85025; 85610; 85730; 86850; 86900; 88304; 93005; C1713 ×4; C1768; G0378 ×2; J0690 ×2; J1100; J1170 ×2; J2001 ×2; J2250; J2405; J2704; J2710; J3010; J3370; J7121; S0164; U0002; 77003

== ENCOUNTER 2024-06-09 21:23 | Emergency (ER) | payer OTHER, MEDICARE ==
[~2024-06-09] VITALS: Ht 157.5 cm; Wt 60.3 kg
[~2024-06-09 21:23] MED LIST changes: +NORCO 7.5-3251 EACH PO
[2024-06-09 21:44] VITALS: TEMP 98.2
[2024-06-09] MEDS: Vancomycin IV 1 GM in SODIUM CHLORIDE 0.9% 250ML 250 ML IV ONE (23:36)
[2024-06-10] MEDS ORDERED: DOXYCYCLINE HY100 MG PO (01:08)
[2024-06-10] MEDS ORDERED: CLEOCIN HCL300 MG PO (01:09)
[2024-06-10 01:42] VITALS: PULSE 66; RESP 18; O2SAT 98
[2024-06-11] MEDS ORDERED: BACTRIM 400-801 EACH PO (21:38)
[2024-06-11] MEDS ORDERED: CEPHALEXIN500 MG PO (21:38)
[2024-06-11] MEDS ORDERED: ULTRAM 50MG50 MG PO (21:40)
== END 2024-06-10 01:50 | disposition home or self-care (01) ==
LOC: FSED 21:27
DX: M79.605 Pain in left leg (principal); L03.116 Cellulitis of left lower limb; E11.65 Type 2 diabetes mellitus with hyperglycemia; I10 Essential (primary) hypertension; E78.5 Hyperlipidemia, unspecified; K76.9 Liver disease, unspecified; K21.9 Gastro-esophageal reflux disease without esophagitis; F41.9 Anxiety disorder, unspecified
CPT/HCPCS: 73590; 80053; 85025; 99284; J2543; J3370; J7050

== ENCOUNTER 2024-06-11 20:33 | Emergency (ER) | payer OTHER, MEDICARE ==
[~2024-06-11] VITALS: Ht 157.5 cm; Wt 60.3 kg
[~2024-06-11 20:33] MED LIST changes: +CLEOCIN HCL300 MG PO; +DOXYCYCLINE HY100 MG PO
[2024-06-11 20:46] VITALS: PULSE 62; RESP 17; TEMP 98.1
[2024-06-11] MEDS ORDERED: CEPHALEXIN500 MG PO (21:38)
[2024-06-11] MEDS ORDERED: BACTRIM 400-801 EACH PO (21:38)
[2024-06-11] MEDS ORDERED: ULTRAM 50MG50 MG PO (21:40)
[2024-06-11 22:07] VITALS: BP 125/71; PULSE 67; RESP 17; TEMP 98; O2SAT 97
== END 2024-06-11 22:09 | disposition home or self-care (01) ==
LOC: ER 20:46
DX: M79.662 Pain in left lower leg (principal); S81.802A Unspecified open wound, left lower leg, initial encounter; I10 Essential (primary) hypertension; E11.9 Type 2 diabetes mellitus without complications; E78.5 Hyperlipidemia, unspecified; K76.9 Liver disease, unspecified; K21.9 Gastro-esophageal reflux disease without esophagitis; F41.9 Anxiety disorder, unspecified
CPT/HCPCS: 93971; 99282

== ENCOUNTER 2025-04-12 12:22 | Emergency (ER) | payer MEDICARE, OTHER ==
[~2025-04-12] VITALS: Ht 157.5 cm; Wt 60.3 kg
[~2025-04-12 12:22] MED LIST changes: +BACTRIM 400-801 EACH PO; +CEPHALEXIN500 MG PO; +ULTRAM 50MG50 MG PO
[2025-04-12 13:47] VITALS: PULSE 60; RESP 16; TEMP 98.3
[2025-04-12 13:56] VITALS: BP 127/65; PULSE 84; RESP 18; TEMP 98.3; O2SAT 98
== END 2025-04-12 13:35 | disposition home or self-care (01) ==
LOC: FSED 12:30
DX: R07.89 Other chest pain (principal); S20.212A Contusion of left front wall of thorax, initial encounter; S70.02XA Contusion of left hip, initial encounter; W01.0XXA Fall on same level from slipping, tripping and stumbling without subsequent striking against object, initial encounter; Y93.01 Activity, walking, marching and hiking; Y92.89 Other specified places as the place of occurrence of the external cause; I10 Essential (primary) hypertension; E11.9 Type 2 diabetes mellitus without complications; E78.5 Hyperlipidemia, unspecified; K21.9 Gastro-esophageal reflux disease without esophagitis; F41.9 Anxiety disorder, unspecified; Z87.19 Personal history of other diseases of the digestive system
CPT/HCPCS: 71250; 72192; 99284